=== PATIENT | female | born 1970 | race Caucasian/White ===

== ENCOUNTER 2018-11-30 03:27 | Emergency (ER) | payer MEDICARE, OTHER ==
[2018-11-30] MEDS ORDERED: NS 0.9% 1000 ML** 1,000 ML IV ONE ×2 (04:16→05:17)
[2018-11-30] MEDS ORDERED: hydrALAZINE IV* 20 MG/ML VIAL IV SLOW PU ONE (04:26)
--- NOTE | 2018-11-30 04:27 | ED ---
GI/ HPI - HPI Summary HPI Summary: Pt is a 48 y/o F presenting to the ED with a chief complaint of abnormal menstrual bleeding. She woke up around 0200, thought she was urinating, and discovered vaginal bleeding. She goes through about 1 sanitary pad an hour. This has gone on and off since she was 13 years old, took progesterone which helped, but now has the mirena IUD which she has had for approx. 1.5-2 years. Pt reports more pain on L side than R, and has a hx of a US that showed cyst on ovary. Pt denies recent DNC and says she has not been able to get hysterectomy due to diabetes. 2 previous pregnancies, both caesarian sections. - History of Current Complaint Chief Complaint: EDVaginalBleeding Time Seen by Provider: 11/30/18 03:39 Stated Complaint: VAGINAL BLEEDING Hx Obtained From: Patient Onset/Duration: Started Hours Ago, Still Present Timing: Constant, Lasting Hours Severity: Severe Current Severity: Severe Vaginal Bleeding Description: Dark Red Number of Pads per Hour: 1 Pain Intensity: 5 Location of Pain: Suprapubic Pain Characteristics: Cramping Associated Signs and Symptoms: Negative: Lightheadedness Additional Signs & Symptoms: Positive: Vaginal Bleeding, IUD - mirena Aggravating Factor(s): Nothing Alleviating Factor(s): Nothing - Allergy/Home Medications Allergies/Adverse Reactions: Allergies Allergy/AdvReac Type Severity Reaction Status Date / Time hydrocodone Allergy Hives Verified 11/30/18 03:52 linagliptin [From Tradjenta] Allergy Rash Verified 11/30/18 03:52 rubella virus live vaccine Allergy Hives/Diff. Verified 11/30/18 03:52 Breathing/I tching Home Medications: Home Medications Divalproex Sodium [Depakote] 500 mg PO QPM 11/30/18 [History Confirmed 11/30/18] Insulin Glargine,Hum.rec.anlog [Basaglar Kwikpen U-100] 20 units SUBCUT QAM 06/10 [History Confirmed 11/30/18] Insulin Glargine,Hum.rec.anlog [Basaglar Kwikpen U-100] 60 units SUBCUT BEDTIME 11/30/18 [History Confirmed 11/30/18] Insulin Lispro [Admelog Solostar] 35 units SUBCUT TID 11/30/18 [History Confirmed 11/30/18] PMH/Surg Hx/FS Hx/Imm Hx Previously Healthy: No Endocrine/Hematology History: Reports: Hx Diabetes, Hx Thyroid Disease - underactive thyroid, Hx Unexplained Bleeding - irregular menstral bleeding from fibroids on uterine wall Cardiovascular History: Reports: Hx Angina, Hx Hypercholesterolemia, Hx Hypertension, Hx Syncope Respiratory History: Reports: Hx Asthma - USUALLY R/T TO [facility], Hx Chronic Bronchitis, Hx Pneumonia, Hx Seasonal Allergies, Hx Sleep Apnea - believe so GI History: Reports: Hx Gall Bladder Disease - stones in duct, removed 2004, Hx Irritable Bowel Musculoskeletal History: Reports: Hx Arthritis, Hx Osteoporosis - fluid drained from left knee 2006 (?), Other Musculoskeletal History - left ankle ligament tear 2008 Sensory History: Reports: Hx Cataracts, Hx Contacts or Glasses - reading Opthamlomology History: Reports: Hx Cataracts, Hx Contacts or Glasses - reading Psychiatric History: Reports: Hx Anxiety, Hx Depression, Hx Inpatient Treatment , Hx Community Mental Health Tx, Hx Bipolar Disorder, Hx Suicide Attempt - once Denies: Hx Eating Disorder, Hx Panic Disorder, Hx Post Traumatic Stress Disorder, Hx Schizophrenia, Hx of Violent Episodes Against Others, Hx Substance Abuse - Surgical History Surgery Procedure, Year, and Place: cholecystectomy, tubes in ears, D+C x2, C- section x2 Hx Anesthesia Reactions: No Infectious Disease History: No Infectious Disease History: Denies: Traveled Outside the [place] in Last 30 Days - Family History Known Family History: Positive: Cardiac Disease - Social History Alcohol Use: Rare Substance Use Type: Reports: None Smoking Status (MU): Never Smoked Tobacco Amount Used/How Often: only tried a few times Length of Time of Smoking/Using Tobacco: sporadic Have You Smoked in the Last Year: No - PER PT. NEVER TRULY A SMOKER JUST TRIED IT NOW AND THEN Review of Systems Negative: Fever Positive: other - vaginal bleeding All Other Systems Reviewed And Are Negative: Yes Physical Exam Triage Information Reviewed: Yes Vital Signs On Initial Exam: Initial Vitals Temp Pulse Resp BP Pulse Ox 97.1 F 110 18 196/113 97 11/30/18 03:34 11/30/18 03:34 11/30/18 03:34 11/30/18 03:34 11/30/18 03:34 Vital Signs Reviewed: Yes Diagnostics - Vital Signs Vital Signs Temp Pulse Resp BP Pulse Ox 11/30/18 03:34 97.1 F 110 18 196/113 97 - Laboratory Result Diagrams: 11/30/18 04:26 11/30/18 04:26 Lab Statement: Any lab studies that have been ordered have been reviewed, and results considered in the medical decision making process. GIGU Course/Dx - Course Course Of Treatment: Pt is a 48 y/o F presenting to the ED with a chief complaint of abnormal menstrual bleeding. She woke up around 0200, thought she was urinating, and discovered vaginal bleeding. She goes through about 1 sanitary pad an hour. This has gone on and off since she was 13 years old, took progesterone which helped, but now has the mirena IUD which she has had for approx. 1.5-[address] Rae about the pt's condition at around 0505. He recommended giving progesterone and keeping the pt until ultrasound is available. If ultrasound is negative for malignancy or unremarkable, she can be discharged with a prescription for progesterone and instructions to call her ob/ medical appliance maker. Pt will be signed out to Dr. Osorio pending pelvic/transvaginal ultrasound. - Diagnoses Provider Diagnoses: Abnormal perimenopausal bleeding, Hyperglycemia Discharge - Sign-Out/Discharge Documenting (check all that apply): Sign-Out Patient Signing out patient TO: Saravanan Osorio - Discharge Plan Condition: Stable Prescriptions: medroxyPROGESTERone TAB* [Provera TAB*] 5 mg PO SEE INSTRUCTIONS #60 tab Referrals: Sheba Rae MD [Medical Doctor] - - Attestation Statements Document Initiated by Scribe: Yes Documenting Scribe: Lisa Perez Provider For Whom Scrapplee is Documenting (Include Credential): Ange Jacobson MD. Scribe Attestation: Lisa Hernandez, scribed for Ange Jacobson MD. on 11/30/18 at 0648. Status of Scribe Document: Ready Consult Consult: 0505 - Spoke with Dr. Rae about the pt's condition. He recommended giving progesterone and keeping the pt until ultrasound is available. If ultrasound is negative for malignancy or unremarkable, she can be discharged with a prescription for progesterone and instructions to call her fixed wing aircraft flight engineer.
[2018-11-30 04:37] LABS: ABS Basophils 0.1 10^3/ul (0-0.2); ABS Eosinophils 0.3 10^3/ul (0-0.6); ABS Lymphocytes 4.6 10^3/ul (1.0-4.8); ABS Monocytes 0.6 10^3/ul (0-0.8); ABS Neutrophils 6.6 10^3/ul (1.5-7.7); ABS Nucleated RBC 0 10^3/ul; Eosinophil % 2.6 %; Hematocrit 36 % (35-47); Hemoglobin 12.2 g/dl (12.0-16.0); Lymphocyte % 37.7 %; Mean Corpuscular HGB Conc 35 g/dl (31-36); Mean Corpuscular Hemoglobin 31 pg (27-31); Mean Corpuscular Volume 90 fL (80-97); Mean Platelet Volume 7.7 fL (7.4-10.4); Nucleated Red Blood Cells % 0.1; Platelet Count 438 10^3/ul (150-450); Red Blood Count 3.96 10^6/ul (4.00-5.40); Red Cell Distribution Width 14 % (10.5-15); White Blood Count 12.3 10^3/ul (3.5-10.8)
[2018-11-30 04:53] LABS: Albumin 3.7 g/dL (3.2-5.2); BUN/Creatinine Ratio 23.5 (8-20); Calcium 9.5 mg/dL (8.6-10.3); EGFR Non-African American 57.8 (>60); Globulin 3.7 g/dL (2-4); Potassium 3.8 mmol/L (3.5-5.0); Total Bilirubin 0.4 mg/dL (0.2-1.0); Total Protein 7.4 g/dL (6.4-8.9)
[2018-11-30 04:55] LABS: Activated Partial Thrombo Time 30.1 seconds (26.0-36.3); INR 0.86 (0.77-1.02)
[2018-11-30 04:59] LABS: HCG Pregnancy 2.24 mIU/mL
[2018-11-30] MEDS ORDERED: MEDROXYPROGESTERONE 5 MG PO ONE (05:16)
[2018-11-30] MEDS ORDERED: Insulin REGULAR(*) 1 UNITS UNIT IV PUSH ONE (05:17)
--- NOTE | 2018-11-30 07:10 | ED ---
Progress - Progress Note Progress Note: This patient was signed out from Dr. Jacobson to Dr. Osorio upon shift change at 07 :00 11/30/18 pending ultrasound. Pelvic/transvaginal ultrasound impression: Enlarged heterogeneous echogenicity uterus and thickened endometrium with fluid and potential polyp. Correlate with clinical assessment and consider endometrial tissue sampling to assess for polyp, hyperplasia, and carcinoma. ED physician has reviewed this imaging report. Upon re-eval the patient reports that her bleeding has stopped. Case discussed with Dr. Simon who will inform Dr. Rae. The patient will be discharged with a follow up with Dr. Rae. The patient is agreeable with this plan. Re-Evaluation - Re-Evaluation First Eval Re-Evaluation Time: 08:49 Change: Improved Comment: patient reports that bleeding has stopped Second Eval Re-Evaluation Time: 10:12 Change: Improved Comment: patient is feeling better and ready for discharge. Course/Dx - Course Course Of Treatment: This patient was signed out from Dr. Jacobson to Dr. Osorio upon shift change at 07:00 11/30/18 pending ultrasound. Pelvic/transvaginal ultrasound impression: Enlarged heterogeneous echogenicity uterus and thickened endometrium with fluid and. potential polyp. Correlate with clinical assessment and consider endometrial tissue. sampling to assess for polyp, hyperplasia, and carcinoma. ED physician has reviewed this imaging report. Upon re-eval the patient reports that her bleeding has stopped. Case discussed with Dr. Simon who will inform Dr. Rea. The patient will be discharged with a follow up with Dr. Rae. The patient is agreeable with this plan. - Diagnoses Provider Diagnoses: Uterine polyp - Provider Notifications Discussed Care Of Patient With: Leonor Simon Time Discussed With Above Provider: 09:49 Instructed by Provider To: Other - will inform Dr. Rae of results. Discharge - Sign-Out/Discharge Documenting (check all that apply): Patient Departure - DC Patient Received Moderate/Deep Sedation with Procedure: No - Discharge Plan Condition: Stable Disposition: HOME Prescriptions: medroxyPROGESTERone TAB* [Provera TAB*] 5 mg PO SEE INSTRUCTIONS #60 tab Referrals: Sheba Rae MD [Medical Doctor] - (2-3 days) Additional Instructions: Follow up with Dr. Rae. Return to the ED if you experience any new or worsening symptoms. - Billing Disposition and Condition Condition: STABLE Disposition: Home - Attestation Statements Document Initiated by Scribe: Yes Documenting Scribe: John Simons Provider For Whom Scribe is Documenting (Include Credential): Saravanan Osorio MD Scribe Attestation: I, John Simons, scribed for Saravanan Osorio MD on 11/30/18 at 1128. Scribe Documentation Reviewed: Yes Provider Attestation: The documentation as recorded by the John corea accurately reflects the service I personally performed and the decisions made by me, Saravanan Osorio MD Status of Scribe Document: Viewed
[2018-11-30 10:34] VITALS: BP 135/97
== END 2018-11-30 10:32 | disposition home or self-care (01) ==
LOC: ED 03:27
DX: N84.0 Polyp of corpus uteri (principal); N93.9 Abnormal uterine and vaginal bleeding, unspecified; Z97.5 Presence of (intrauterine) contraceptive device; E11.65 Type 2 diabetes mellitus with hyperglycemia; I10 Essential (primary) hypertension; Z87.42 Personal history of other diseases of the female genital tract
CPT/HCPCS: 36415; 76830; 76856; 80053; 83605; 84702; 85025; 85610; 85730; 86850; 86900; 86901; 96374; 96375; 99283; A9270-GY; J0360

== ENCOUNTER 2018-12-30 07:20 | Inpatient (IN) | payer MEDICARE ==
--- OUTSIDE RECORDS SUMMARY | 2018-12-30 07:25 | XMS REPORT | Continuity of Care Document ---
:1970 External Reference #:[id number] Author Name Sheba Rae MD Address [address] [place] [address] Care Team Providers Name Role Phone Maxx Tripathi Primary Care Physician Unavailable Payers Date Identification Numbers Payment Provider Subscriber Policy Number: [id number] [place] Ree Ryan PayID: [id number] [address] [address] [place] [address] Policy Number: [id number] [facility] Ree Ryan PayID: [id number] [address] [place] [address] Policy Number: [id number] Medicaid [place] Ree Ryan PayID: [id number] [address] [place] [address] Advance Directives Description No Information Available Problems Description No Information Family History Date Family Member(s) Observation Comments Father Diabetes Father due to VA () Mother Diabetes First Daughter A&W Second Daughter A&W First Brother A&W Second Brother A&W First Sister A&W Second Sister A&W Paternal Grandfather due to fire () Maternal Grandmother Breast Cancer Maternal Grandmother due to Alzheimer's Disease () Social History Type Date Description Comments Sex Unknown Education Highest Level Completed Is High School Diploma Marital Status Lives With Boyfriend Lives With Older brother Lives With Daughter Tobacco Use Start: Unknown Never Smoked Cigarettes ETOH Use Denies alcohol use Recreational Drug Use Denies Drug Use Tobacco Use Start: Unknown Patient has never smoked Smoking Status Reviewed: 12/05/18 Patient has never smoked Seat Belt/Car Seat Always uses seat belt Currently Active Patient is currently sexually active Condom Use Always Contraceptive Methods Current methods include levonorgestrel IUD STD's 1996 Herpes STD's Gonorrhea Allergies, Adverse Reactions, Alerts Date Description Reaction Status Severity Comments 08/07/2015 Hydrocodone Active 08/07/2015 Rubella Vaccine Active 08/07/2015 Cephalexin Active 11/29/2016 Tradjenta Active Medications Medication Date Status Form Strength Qnty SIG Indications Ordering Provider Norethindrone 11/30 Active Tablets 5mg 60tab take 1 Phaelon Acetate s tab PO MD Kyra tid until bleeding stops, then 1 tab PO bid for 5 days, then 1 tab PO daily Mirena (52 MG) 07/04 Active IUD 20mcg/24H Pha Justin Rae MD Proair HFA Active 2 puffs qd Aspir-81 Active 1 po qd Multi Vitamin Daily Active 1 po qd Atorvastatin Calcium Active 80mg 1 po qd Losartan Potassium Active 100mg 1 po qd Levothyroxine Sodium Active 25mcg 1 po qd Basaglar Kwikpen Active Solution 100Unit/M 30uni 20 am, Unknown Pen-Injec L ts 60pm t Admelog Active Solution 100Unit/M 35u plus L sliding scale Divalproex Sodium Active Tablets 500mg 1 po bid Tranexamic Acid 03/28 Hx Tablets 650mg 30tab take two s tabs by MD Kyra - mouth 11/27 times a day when menses starts, maximum of 5 days per month Medroxyprogesterone 11/05 Hx Tablets 10mg 60tab take 1 Anju Acetate s tab by Connor - mouth CNM 08/03 Depakote Hx 500mg Unknown / - 10/25 Humalog Hx Unknown / - 08/07 Lexapro Hx 10mg Unknown / - 11/27 Triamcinolone Hx Unknown Acetonide / - 10/26 Terazol 3 / Hx Unknown / - 10/26 Glipizide Hx Tablets 5mg 1 po qd Unknown / - 03/27 Metformin HCL ER 00 Hx Tablets 1000mg 30tab 2 po qd Unknown (Osm) /0000 ER 24HR s - 03/27 Tradjenta 00 Hx Tablets 5mg 1 po qd Unknown /0000 - 11/23 Medications Administered in Office Medication Date Status Form Strength Qnty SIG Indications Ordering Provider PT SCRN Tbco Administered Injection Phaelon Id as Non User 019 MD Kyra PT SCRN Tbco Administered Injection Phaelon Id as Non User 018 MD Kyra Immunizations Description No Information Available Vital Signs Date Vital Result Comment 12/05/2018 10:19am BP Systolic 132 mmHg BP Diastolic 80 mmHg Body Temperature 99.5 F Heart Rate 112 /min Respiratory Rate 12 /min Height 62 inches 5'2" Weight 245.00 lb BMI (Body Mass Index) 44.8 kg/m2 Last Menstrual Period 4678782 2 Parity 2 03/28/2018 1:53pm BP Systolic 158 mmHg BP Diastolic 104 mmHg Height 62 inches 5'2" Weight 225.00 lb BMI (Body Mass Index) 41.1 kg/m2 Last Menstrual Period 9741252 2 Parity 2 08/03/2017 12:45pm BP Systolic 142 mmHg BP Diastolic 100 mmHg Height 62 inches 5'2" Weight 233.00 lb BMI (Body Mass Index) 42.6 kg/m2 2 Parity 2 07/04/2017 3:27pm BP Systolic 148 mmHg BP Diastolic 88 mmHg Height 62 inches 5'2" Weight 233.00 lb BMI (Body Mass Index) 42.6 kg/m2 2 Parity 2 03/23/2017 10:24am BP Systolic 152 mmHg BP Diastolic 92 mmHg Height 62 inches 5'2" Weight 238.00 lb BMI (Body Mass Index) 43.5 kg/m2 2 Parity 2 11/29/2016 10:16am BP Systolic 142 mmHg BP Diastolic 82 mmHg Height 62 inches 5'2" Weight 242.00 lb BMI (Body Mass Index) 44.3 kg/m2 2 Parity 2 03/08/2016 1:20pm BP Systolic 140 mmHg BP Diastolic 82 mmHg Height 60 inches 5'0" Weight 250.00 lb BMI (Body Mass Index) 48.8 kg/m2 2 Parity 2 10/28/2015 10:52am BP Systolic 138 mmHg BP Diastolic 84 mmHg Height 65 inches 5'5" Weight 245.00 lb BMI (Body Mass Index) 40.8 kg/m2 2 Parity 2 08/07/2015 10:29am BP Systolic 138 mmHg BP Diastolic 88 mmHg Height 65 inches 5'5" Weight 245.00 lb BMI (Body Mass Index) 40.8 kg/m2 Last Menstrual Period [id number] 2 Parity 2 Results Test Date Facility Test Result H/L Range Note Laboratory test 03/23/2017 [facility] SEE RESULT [address] [place] [address] Pathology BELOW [phone] Laboratory test 11/29/2016 [facility] SEE RESULT [address] [place] [address] Pathology BELOW [phone] Laboratory test 03/08/2016 [facility] SEE RESULT [address] [place] [address] Pathology BELOW [phone] Laboratory test 10/28/2015 [facility] SEE RESULT [address] [place] [address] Pathology BELOW [phone] 1 SEE RESULT BELOW Name: REE RYAN : [address]: Sheba Rae MD Acct: [id number] Unit: [id number] AGE: 46 Location: [facility] Re03/23/17 SEX: F Status: REG REF SPEC: [id number] IONA: 03/23/17-[address]: Sheba Rae MD REQ: [id number] RECD: 03/23/17 STATUS: SOUT _ ORDERED: LEVEL 4 COMMENTS: [id number] FINAL DIAGNOSIS Uterus, endometrium, biopsy: -- Inflamed endocervical mucus and benign endocervical mucosa with no significant pathologic abnormalities. -- Scant fragments of inflamed weakly proliferative endometrial mucosa with no evidence of hyperplasia or malignancy. PRE-OPERATIVE DIAGNOSIS Benign hyperplasia GROSS DESCRIPTION The specimen is received in formalin labeled, EM BX, and consists of a 3.1 x 1.7 by up to 0.7 cm aggregate of polypoid to lobulated yellow-white mucoid to rubbery tissue fragments. The polypoid structure is bisected and the specimen is entirely submitted in cassettes A and B. Received separately in the same container is a 2.5 x 1.8 x 0.5 cm aggregate of red-brown rubbery blood clot which is filtered and entirely submitted in cassettes C. Signed (signature on file) Shante Buckley MD 12/09 1604 END OF REPORT * ML=Testing performed at Main Lab DEPARTMENT OF PATHOLOGY, [address] [place] [address] Luis Bah M.D. Director [facility] # [id number] 2 SEE RESULT BELOW Name: REE RYAN : [address]: Sheba Rae MD Acct: [id number] Unit: [id number] AGE: 46 Location: [facility] Re11/29/16 SEX: F Status: REG REF SPEC: [id number] IONA: 11/29/16-[address]: Sheba Rae MD REQ: [id number] RECD: 11/29/16-160 STATUS: SOUT _ ORDERED: LEVEL IV COMMENTS: [id number] FINAL DIAGNOSIS Uterus, endometrium, curettage: -- Inflamed endocervical and scant superficial lower uterine segment epithelium with acute inflammation and focal syncytial metaplasia. -- Abundant inflamed mucin noted. --No hyperplasia or neoplasia identified. See comment. Comment: Biopsy demonstrates only a few fragments of endocervical mucosa and superficial lower uterine segment epithelium. There is focal syncytial metaplasia noted, a finding associated with bleeding. While no evidence of hyperplasia or neoplasia identified, specimen consists predominantly of inflamed mucin and may not be personal service representative of the targeted endometrial tissue. Clinical correlation and appropriate follow-up is recommended. CLINICAL HISTORY History of hyperplasia GROSS DESCRIPTION The specimen is received in formalin labeled, EM BX, and consists of a 2.3 x 2.2 x 0.7 cm aggregate of huwmzl-fabvn-wvaz blood tinged mucus, which is filtered and entirely submitted in two cassettes. Signed (signature on file) Luis Bah MD 1342 END OF REPORT * ML=Testing performed at Main Lab DEPARTMENT OF PATHOLOGY, [address] [place] [address] Luis Bah M.D. Director [facility] # [id number] 3 SEE RESULT BELOW Name: REE RYAN : [address]: Sheba Rae MD Acct: [id number] Unit: [id number] AGE: 45 Location: [facility] Re03/08/16 SEX: F Status: REG REF SPEC: [id number] IONA: 03/08/16-[address] [facility] [address]: Sheba Rae MD REQ: [id number] RECD: 03/09/16-1044 STATUS: SOUT _ ORDERED: LEVEL IV COMMENTS: [id number] FINAL DIAGNOSIS Uterus, endometrium, biopsy: -- Extensive complex hyperplasia without atypia. COMMENT: Dr. Bah reviewed this case in intradepartmental consultation and agrees with the diagnosis. PRE-OPERATIVE DIAGNOSIS Hyperplasia without atypia. GROSS DESCRIPTION The specimen is received in formalin labeled, EM BX, and consists of a 2.7 x 1.6 x 0.8 cm paul irregular gelatinous tissue fragment. Received separately in the same container is a 2.3 x 2.1 x 0.4 cm aggregate of red-brown blood clot and mucus. The gelatinous fragment is bisected and the specimen is submitted entirely in cassettes A and B to include separately received tissue in cassette B. Signed (signature on file) Shante Buckley MD 1553 END OF REPORT * ML=Testing performed at Main Lab DEPARTMENT OF PATHOLOGY, [address] [place] [address] Luis Bah M.D. Director [facility] # [id number] 4 SEE RESULT BELOW Name: REE RYAN : [address]: Sheba Rae MD Acct: [id number] Unit: [id number] AGE: 45 Location: [facility] Re10/28/15 SEX: F Status: REG REF SPEC: [id number] IONA: 10/28/15-[address]: Sheba Rae MD REQ: [id number] RECD: 10/28/15 STATUS: SOUT _ ORDERED: LEVEL IV FINAL DIAGNOSIS Uterus, endometrium, biopsy: -- Complex hyperplasia without atypia. PRE-OPERATIVE DIAGNOSIS Dysfunctional uterine bleeding GROSS DESCRIPTION The specimen is received in formalin with no source identified and a requisition labeled, Endometrial Biopsy, and consists of a 4.5 x 3.0 by 0.7 cm aggregate of red- brown blood clot admixed with paul-bran irregular soft tissue fragments and scant mucus. Entirely submitted, three cassettes. Signed (signature on file) Shante Buckley MD 06/07 1307 END OF REPORT * ML=Testing performed at Main Lab DEPARTMENT OF PATHOLOGY, [address] [place] [address] Luis Bah M.D. Director [facility] # [id number] Procedures Date Code Description Status 07/04/2017 64134 Insert Intrauterine Device Completed 03/23/2017 79447 Biopsy Endometrial W/O Cervical Dilation Completed 11/29/2016 91890 Biopsy Endometrial W/O Cervical Dilation Completed 10/23/2016 10237847 Mammogram Completed 08/15/2016 90920 Medical Records, Release Completed 03/08/2016 51143 Biopsy Endometrial W/O Cervical Dilation Completed 10/28/2015 39344 Biopsy Endometrial W/O Cervical Dilation Completed Encounters Type Date Location Provider Dx Diagnosis Office Visit 12/05/[address] [facility] Sheba Rae MD Z01.818 Encounter for other 10:30a preprocedural examination N92.0 Excessive and frequent menstruation with regular cycle E11.21 Type 2 diabetes mellitus with diabetic nephropathy Z68.41 Body mass index (BMI) 40.0-44.9, adult Office Visit 03/28/2018 2:00p [facility] Office Sheba Rae, N92.0 Excessive and MD frequent menstruation with regular cycle Z30.431 Encounter for routine checking of intrauterine contracep dev Office Visit 08/03/2017 1:00p [facility] Office Sheba Rae Z30.431 Encounter for MD routine checking of intrauterine contracep dev N85.01 Benign endometrial hyperplasia Office Visit 08/07/2015 10:30a [facility] Office Sheba Rae, N92.0 Excessive and MD frequent menstruation with regular cycle Z68.41 Body mass index (BMI) 40.0-44.9, adult E11.9 Type 2 diabetes mellitus without complications Plan of Treatment Future Appointment(s):01/07/2019 1:00 pm - Sheba Rae MD at [facility] 8:45 am - Sheba Rae MD at [facility]
--- NOTE | 2018-12-30 07:36 | ED ---
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 She went to use the bathroom and remembers waking up in the bathroom with EMS surrounding her. Pt has been having ongoing, heavy vaginal bleeding for past several weeks. She was scheduled for D&C on 12/[address] Rae, [facility], however it was not done due to her elevated blood sugars Her POC glucose by EMS was 500. She did not test her sugars last night nor take her medication. She says her sugars are normally 250-350. PMHx: hyperplasia, DMII. She has an IUD in place which was helping control her bleeding up until about 4-5 months ago. Associated sx: lower abd cramping. - History of Current Complaint Stated Complaint: POSS HIGH SUGAR PER PT. BOYFRIEND Hx Obtained From: Patient, EMS Onset/Duration: Still Present - vaginal bleeding Timing: Constant - vaginal bleeding, Lasting Weeks - vaginal bleeding Current Severity: Severe Pain Intensity: 7 - 10 Location of Pain: Other - lower abd Pain Characteristics: Cramping Associated Signs and Symptoms: Positive: Syncope Additional Signs & Symptoms: Positive: Vaginal Bleeding - Allergy/Home Medications Allergies/Adverse Reactions: Allergies Allergy/AdvReac Type Severity Reaction Status Date / Time hydrocodone Allergy Hives Verified 12/06/18 12:56 linagliptin [From Tradjenta] Allergy Rash Verified 12/06/18 12:56 rubella virus live vaccine Allergy Hives/Diff. Verified 12/06/18 12:56 Breathing/I tching Home Medications: Home Medications Cyclobenzaprine TAB* [Flexeril 10 MG TAB*] 10 mg PO TID PRN 12/30/18 [History Confirmed 12/30/18] Divalproex Sodium [Divalproex Sodium ER] 500 mg PO BEDTIME 12/30/18 [History Confirmed 12/30/18] Losartan/Hydrochlorothiazide [Losartan-Hctz 100-25 mg Tab] 1 tab PO DAILY [History Confirmed 12/30/18] PMH/Surg Hx/FS Hx/Imm Hx Previously Healthy: No Endocrine/Hematology History: Reports: Hx Diabetes, Hx Thyroid Disease - underactive thyroid, Hx Unexplained Bleeding - irregular menstral bleeding from fibroids on uterine wall Cardiovascular History: Reports: Hx Angina, Hx Hypercholesterolemia, Hx Hypertension, Hx Syncope Respiratory History: Reports: Hx Asthma - USUALLY R/T TO [facility], Hx Chronic Bronchitis, Hx Pneumonia, Hx Seasonal Allergies, Hx Sleep Apnea - believe so GI History: Reports: Hx Gall Bladder Disease - stones in duct, removed 2004, Hx Irritable Bowel Musculoskeletal History: Reports: Hx Arthritis, Hx Osteoporosis - fluid drained from left knee 2006 (?), Other Musculoskeletal History - left ankle ligament tear 2008 Sensory History: Reports: Hx Cataracts, Hx Contacts or Glasses - reading Opthamlomology History: Reports: Hx Cataracts, Hx Contacts or Glasses - reading Psychiatric History: Reports: Hx Anxiety, Hx Depression, Hx Inpatient Treatment , Hx Community Mental Health Tx, Hx Bipolar Disorder, Hx Suicide Attempt - once Denies: Hx Eating Disorder, Hx Panic Disorder, Hx Post Traumatic Stress Disorder, Hx Schizophrenia, Hx of Violent Episodes Against Others, Hx Substance Abuse - Surgical History Surgery Procedure, Year, and Place: cholecystectomy, tubes in ears, D+C x2, C- section x2 Hx Anesthesia Reactions: No Infectious Disease History: No Infectious Disease History: Denies: Traveled Outside the [place] in Last 30 Days - Family History Known Family History: Positive: Cardiac Disease - Social History Occupation: Disabled Lives: Dormitory/Roommates - significant other Alcohol Use: Rare Hx Substance Use: No Substance Use Type: Reports: None Hx Tobacco Use: No Smoking Status (MU): Never Smoked Tobacco Amount Used/How Often: only tried a few times Length of Time of Smoking/Using Tobacco: sporadic Have You Smoked in the Last Year: No - PER PT. NEVER TRULY A SMOKER JUST TRIED IT NOW AND THEN Review of Systems Negative: Fever Positive: Abdominal Pain - cramping Positive: discharge - vaginal bleeding Positive: Syncope All Other Systems Reviewed And Are Negative: Yes Physical Exam - Summary Physical Exam Summary: VITAL SIGNS: Reviewed. GENERAL: Patient is a well-developed, obese female who is lying comfortable in the stretcher. Patient is not in any acute respiratory distress. HEAD AND FACE: Normocephalic and atraumatic. EYES: PERRLA, EOMI x 2, No injected conjunctiva. EARS: Hearing grossly intact. Ear canals and tympanic membranes are WNL. MOUTH: Oropharynx within normal limits. NECK: Supple, trachea is midline, no adenopathy, no JVD. CHEST: Symmetric, no tenderness at palpation LUNGS: Clear to auscultation bilaterally. No wheezing or crackles. CVS: RRR, S1 and S2 present, no murmurs or gallops appreciated. ABDOMEN: Soft, non-tender. No signs of distention. Positive bowel sounds. No rebound, no guarding, and no masses palpated. No abdominal bruit or pulsations. EXTREMITIES: FROM in all major joints, no edema, no cyanosis or clubbing. NEURO: Alert and oriented x 3. No acute neurological deficits. Speech is normal. 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 External genitalia: within normal limits. No rashes, lesions or ecchymosis. Speculum exam: Blood clots present, bright red blood present, the os is close. No tenderness. Triage Information Reviewed: Yes Vital Signs On Initial Exam: Initial Vitals Temp Pulse Resp BP Pulse Ox 98.3 F 125 24 134/93 97 12/30/18 07:23 12/30/18 07:23 12/30/18 07:23 12/30/18 07:23 12/30/18 07:23 Vital Signs Reviewed: Yes Diagnostics - Vital Signs Vital Signs Temp Pulse Resp BP Pulse Ox 12/30/18 07:23 98.3 F 125 24 134/93 97 - Laboratory Result Diagrams: 12/30/18 15:08 12/30/18 08:04 Lab Statement: Any lab studies that have been ordered have been reviewed, and results considered in the medical decision making process. - Radiology CXR Radiology Interpretation Completed By: Radiologist Summary of Radiographic Findings: IMPRESSION: #. No evidence for acute intrathoracic disease. ED provider has reviewed this report. - EKG 0710 Cardiac Rate: Tachycardia - 115 bpm EKG Rhythm: Sinus Tachycardia Summary of EKG Findings: No ST elevation, normal axis. GIGU Course/Dx - Course Assessment/Plan: This patient is a 48-year-old female who presents to the emergency room with chief complaint of having a syncopal episode. There was a positive loss of consciousness witnessed by . She also reports that her sugars have been more than 500 and shes been having heavy vaginal bleeding for more than 1 month. Be obtained 2 IV accesses and the patient was started with IV fluids. Blood work without any significant abnormality except for WBCs of 14.7, hemoglobin 9.7, hematocrit 28, sodium 132, chloride 96, anion gap is 13 and carbon dioxide is 23. Glucose is 451, magnesium 1.5. Patient was given IV fluids and insulin for treatment of her hyperglycemia. The patient was given magnesium IV for the hypomagnesemia. Urinalysis with positive UTI therefore she will be given ciprofloxacin. Chest x-ray impression: No evidence for acute intrathoracic disease. I discussed the findings and test results with Dr. Gong from [facility] and he recommends to place the patient on naproxen 300 mg 3 times a day. After the patient was given IV fluids and 10 units of insulin the fingerstick is 366. Therefore I order another 10 units of insulin for this patient. The patient continues to have a fingerstick of 231 after 20 units of insulin therefore she was given another 10 units of insulin. Patient continued to have fluids. Since the patient continues to be Tachycardic I discussed my physical exam and findings with Dr. Venegas from the hospital services who accepted the patient for admission. Patient is hemodynamically stable except for her tachycardia. - Diagnoses Provider Diagnoses: Syncope, Uncontrolled diabetes mellitus, Abnormal vaginal bleeding - Physician Notifications Discussed Care Of Patient With: Marco Gong - [facility] Time Discussed With Above Provider: 09:42 Instructed by Provider To: Other - Recommends to start Naproxen 300mg TID and follow up with Dr. Rae, [facility]. - Critical Care Time Critical Care Time: 30-74 min Discharge - Sign-Out/Discharge Documenting (check all that apply): Patient Departure - ADMIT Patient Received Moderate/Deep Sedation with Procedure: No - Discharge Plan Condition: Stable Disposition: ADMITTED TO [facility] - Billing Disposition and Condition Condition: STABLE Disposition: Admitted to [facility] - Attestation Statements Document Initiated by Saniya: Yes Documenting Scribe: Odilia Valencia Provider For Whom Saniya is Documenting (Include Credential): MD Inge Spenceibe Attestation: IOdilia scribed for Dr. David Quach MD on 12/30/18 at 3471. Scribe Documentation Reviewed: Yes Provider Attestation: The documentation as recorded by the Odilia corea accurately reflects the service I personally performed and the decisions made by me, Dr. David Quach MD Status of Scribe Document: Viewed Consult Consult: 1218: Consult with Dr. Venegas, hospitalist Will admit pt.
[2018-12-30] MEDS: NS 0.9% 1000 ML** 2,000 ML IV ONE (07:52)
[2018-12-30 08:18] LABS: ABS Basophils 0.1 10^3/ul (0-0.2); ABS Eosinophils 0.4 10^3/ul (0-0.6); ABS Lymphocytes 3.1 10^3/ul (1.0-4.8); ABS Monocytes 0.7 10^3/ul (0-0.8); ABS Neutrophils 10.4 10^3/ul (1.5-7.7); ABS Nucleated RBC 0 10^3/ul; Eosinophil % 2.8 %; Hematocrit 28 % (35-47); Hemoglobin 9.7 g/dl (12.0-16.0); Lymphocyte % 21.3 %; Mean Corpuscular HGB Conc 35 g/dl (31-36); Mean Corpuscular Hemoglobin 32 pg (27-31); Mean Corpuscular Volume 91 fL (80-97); Nucleated Red Blood Cells % 0; Platelet Count 390 10^3/ul (150-450); Red Blood Count 3.07 10^6/ul (4.00-5.40); Red Cell Distribution Width 14 % (10.5-15); White Blood Count 14.7 10^3/ul (3.5-10.8)
[2018-12-30 08:32] LABS: Albumin 3.5 g/dL (3.2-5.2); Albumin/Globulin Ratio 1.3 (1-3); BUN/Creatinine Ratio 23.7 (8-20); Calcium 8.6 mg/dL (8.6-10.3); EGFR African American 77.9 (>60); EGFR Non-African American 64.3 (>60); Globulin 2.8 g/dL (2-4); Magnesium 1.5 mg/dL (1.9-2.7); Potassium 3.9 mmol/L (3.5-5.0); Total Bilirubin 0.5 mg/dL (0.2-1.0); Total Protein 6.3 g/dL (6.4-8.9)
[2018-12-30] MEDS ORDERED: Insulin REGULAR(*) 1 UNITS UNIT IV PUSH ONE ×3 (08:36→12:11)
[2018-12-30] MEDS ORDERED: Magnesium Sulfate 1 GM IV* 1 GM/100 ML BAG IV ONE (08:37)
[2018-12-30 08:38] LABS: HCG Pregnancy 1.11 mIU/mL
[2018-12-30 08:49] LABS: Urine Appearance Cloudy; Urine Bacteria Absent (Absent); Urine Bilirubin Negative (Negative); Urine Blood 3+ (Negative); Urine Glucose 3+(>=500 mg/dL) (Negative); Urine Ketones Trace (Negative); Urine Nitrite Negative (Negative); Urine Protein 2+(100 mg/dL) (Negative); Urine Red Blood Cell 3+(>10/hpf) (Absent); Urine Specific Gravity 1.027 (1.010-1.030); Urine Urobilinogen Negative (Negative); Urine White Blood Cell 3+(>20/hpf) (Absent)
[2018-12-30 08:51] LABS: Urine Color Red
[2018-12-30] MEDS ORDERED: Dextrose 50% Syringe 50 ML* 25 GM/50 ML SYRINGE IV PUSH PRN (12:29)
[2018-12-30] MEDS ORDERED: Cyclobenzaprine TAB* 10 MG PO PRN (12:30)
[2018-12-30] MEDS: Insulin GLARGINE(*) 1 UNITS UNIT SUBCUT SCH (13:34)
--- NOTE | 2018-12-30 14:19 | ADMNOTE ---
Subjective Date of Service: 12/30/18 Interval History: HISTORY & PHYSICAL PCP: Fazal Russo in [place] CC: syncope HPI: 48 year old woman with long history of intractable vaginal bleeding has been going to the bathroom every hour for days, passing clots. She was in bathroom this morning, bent over to get more paper, had LOC, woke up when holistic health practitioner were in her house. Her reports he heard a fall, found her unresponsive, no response to stimuli for 10-12 minutes. No injury, no seizure activity noted. Patient has had difficulty with excess vaginal bleeding since menarche, had improved a few months ago with placement of Mirina IUD and oral progesterone. 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 Sees Dr. Moy, endocrinology at [facility] [place]. Cannot take DPP inhibitors or GLP analogues due to history of pancreatitis when on an linagliptin. Cannot take Metformin due to diarrhea, which occurred on Metformin ER also. Family History: Findings - Father CAD age 65, Mother and sister have diabetes, Mother and 2 sisters have excess vaginal bleeding, one sister had hysterectomy due to fibroids Social History: Findings - , 2 children, disabled, non-smoker, rare alcohol, no drug use Past Medical History: Findings - PMH: morbid obesity, HTN, hyperlipidemia, Type 2 diabetes, bipolar d/o; PSH: X2, D&C X3, cholecystectomy Review of Systems - Measurements Intake and Output: Intake and Output Last 24 Hours 12/28/18 12/29/18 12/30/18 12/31/18 05:59 05:59 06:59 06:59 Intake Total 2100 Balance 2100 Weight 111.584 kg Intake: IV Fluids 2100 - Review of Systems Constitutional Symptoms: Negative: Weight Loss, Fever Dermatology: Positive: Normal HEENT: Positive: Normal Eyes: Positive: Normal Thyroid: Positive: Normal Pulmonary: Positive: Normal Cardiology: Positive: Normal Gastroenterology: Positive: Nausea, Other - dry heaves, lower abdominal ( menstrual) cramps Negative: Constipation, Diarrhea Genital - Urinary: Positive: Normal Genitourinay - Female: Positive: Dysmenorrhea. Negative: Menses Normal Endocrinology: Positive: Diabetes Mellitus, Menstral Abnormalities Hematologic/Lymphatic: Positive: Anemia Negative: Use of Anticoagulant, Use of Antiplatelet Drugs Neurology: Positive: Normal Psychiatry: Positive: Normal Objective Active Medications: HOME MEDS: Aspirin (Aspirin 81 Mg Chew Tab*) 81 mg PO QAM [facility] Atorvastatin Calcium (Lipitor*) 80 mg PO 2100 [facility] Cyclobenzaprine HCl (Flexeril Tab*) 10 mg PO TID PRN PRN Reason: SPASMS Divalproex Sodium (Depakote Er Tab(*)) 250 mg PO QAM [facility] Divalproex Sodium (Depakote Er Tab(*)) 500 mg PO BEDTIME [facility] Glipizide (Glucotrol Tab*) 10 mg PO BID [facility] Hydrochlorothiazide (Hydrodiuril Tab*) 25 mg PO DAILY [facility] Insulin Glargine (BasaGlar) 20 units SUBCUT in AM, 60 units SC qPM Last Admin: 12/30/18 13:34 Dose: 50 units Insulin Human Lispro (AdmiLog*) 35 units SUBCUT AC [facility] Levothyroxine Sodium (Synthroid Tab*) 25 mcg PO 0600 [facility] Losartan Potassium (Cozaar Tab*) 100 mg PO DAILY [facility] Medroxyprogesterone Acetate (Provera Tab*) 5 mg PO TID [facility] Vital Signs - 8 hr 12/30/18 12/30/18 12/30/18 09:00 09:24 09:54 Temperature Pulse Rate 113 111 Respiratory 18 28 16 Rate Blood Pressure 147/79 113/71 (mmHg) O2 Sat by Pulse 98 96 Oximetry 12/30/18 12/30/18 12/30/18 10:00 10:24 11:00 Temperature Pulse Rate 108 107 112 Respiratory 17 16 23 Rate Blood Pressure 122/66 (mmHg) O2 Sat by Pulse 96 96 98 Oximetry Oxygen Devices in Use Now: None Appearance: obese, no distress Eyes: No Scleral Icterus Ears/Nose/Mouth/Throat: Clear Oropharnyx Neck: NL Appearance and Movements; NL JVP, No Thyroid Enlargement, Masses Respiratory: Symmetrical Chest Expansion and Respiratory Effort, Clear to Auscultation Cardiovascular: NL Sounds; No Murmurs; No JVD, RRR Abdominal: NL Sounds; No Tenderness; No Distention, No Hepatosplenomegaly Lymphatic: No Cervical Adenopathy Extremities: No Edema Skin: No Rash or Ulcers Neurological: Alert and Oriented x 3 Lines/Tubes/Other Access: Clean, Dry and Intact Peripheral IV Nutrition: Taking PO's Result Diagrams: 12/30/18 08:04 12/30/18 08:04 Additional Lab and Data: Laboratory Tests 12/30/18 12/30/18 12/30/18 08:04 09:04 09:30 VBG pH 7.34 VBG pCO2 46 VBG pO2 < 38.0 VBG HCO3 22.4 L POC Glucose (mg/dL) 366 H Magnesium 1.5 L AST 10 L ALT 11 Troponin I 0.00 Beta HCG, Quant 1.11 12/30/18 12:09 VBG pH VBG pCO2 VBG pO2 VBG HCO3 POC Glucose (mg/dL) 321 H Magnesium AST ALT Troponin I Beta HCG, Quant Diagnostic Imaging: CXR: no infiltrates EKG Data: Sinus tachycardia, low voltage, small Qs in III, aVF Assess/Plan/Problems-Billing Assessment: 48 yo woman with chronic menorrhagia, anemia, uncontrolled DM2, here with syncope. - Patient Problems (1) Syncope Current Visit: No Status: Acute Priority: High Onset Date: 02/14/15 Code (s): R55 - SYNCOPE AND COLLAPSE SNOMED Code(s): 165355361 Comment: -Differential would include vaso-vagal episode, hypovolemia and hypotension, seizure, or arrhythmia. -Will observe on telemetry, follow serial troponins -Suspect hypovolemia and orthostasis due to acute blood loss (2) Type 2 diabetes mellitus, uncontrolled Current Visit: Yes Status: Acute Priority: Medium Code(s): E11.65 - TYPE 2 DIABETES MELLITUS WITH HYPERGLYCEMIA SNOMED Code(s): 650948512 Comment: -Increased Lantus from 80 to 100u per day -Continue mealtime boluses, with sliding scale added -Continue Glyburide, should add SGLT-2 inhibitor as outpatient, as both insulin and glyburide are promoting weight gain -once diabetes better controlled, should go to OR for D&C (3) Perimenopausal menorrhagia Current Visit: Yes Status: Acute Priority: High Code(s): N92.4 - EXCESSIVE BLEEDING IN THE PREMENOPAUSAL PERIOD SNOMED Code(s): 003725261 Comment: -Will admit, observe serial H/H -Will consult with HIGH SCHOOL MUSIC INSTRUCTOR tomorrow if diabetes under better control. -Hypovolemic, will give IV crystalloids. (4) DVT prophylaxis Current Visit: No Status: Acute Priority: Low Onset Date: 02/14/15 Code( s): NVR6758 - SNOMED Code(s): 526432371 Comment: -moderate risk due to obesity -SCDs ordered (5) Hypomagnesemia Current Visit: Yes Status: Acute Priority: Medium Code(s): E83.42 - HYPOMAGNESEMIA SNOMED Code(s): 843003081 Comment: -Will replete and recheck in AM Status and Disposition: Inpatient required
[2018-12-30] MEDS: NS 0.9% 1000 ML** 1,000 ML IV SCH ×2 (14:46→21:41)
[2018-12-30 15:14] LABS: Hematocrit 26 % (35-47); Hemoglobin 8.9 g/dl (12.0-16.0)
[2018-12-30] MEDS: MEDROXYPROGESTERONE 5 MG PO SCH ×2 (15:33→21:12)
[2018-12-30] MEDS: Insulin LISPRO* 1 UNITS UNIT SUBCUT SCH ×3 (17:11→21:12)
[2018-12-30] MEDS: glipiZIDE TAB* 5 MG PO SCH (21:10)
[2018-12-30] MEDS: Divalproex ER TAB(*) 500 MG PO SCH (21:11)
[2018-12-30] MEDS: Magnesium Oxide TAB* 400 MG PO SCH (21:11)
[2018-12-31] MEDS: Insulin GLARGINE(*) 1 UNITS UNIT SUBCUT SCH ×2 (01:11→13:46)
[2018-12-31] MEDS: Levothyroxine TAB* 25 MCG TAB PO SCH (05:08)
[2018-12-31 05:42] LABS: ABS Basophils 0.1 10^3/ul (0-0.2); ABS Eosinophils 0.4 10^3/ul (0-0.6); ABS Lymphocytes 3.5 10^3/ul (1.0-4.8); ABS Monocytes 0.3 10^3/ul (0-0.8); ABS Neutrophils 4.5 10^3/ul (1.5-7.7); ABS Nucleated RBC 0 10^3/ul; Eosinophil % 4.5 %; Hematocrit 21 % (35-47); Hemoglobin 7.3 g/dl (12.0-16.0); Lymphocyte % 40.1 %; Mean Corpuscular HGB Conc 35 g/dl (31-36); Mean Corpuscular Hemoglobin 32 pg (27-31); Mean Corpuscular Volume 92 fL (80-97); Mean Platelet Volume 7.3 fL (7.4-10.4); Nucleated Red Blood Cells % 0; Platelet Count 282 10^3/ul (150-450); Red Blood Count 2.28 10^6/ul (4.00-5.40); Red Cell Distribution Width 14 % (10.5-15); White Blood Count 8.8 10^3/ul (3.5-10.8)
[2018-12-31] MEDS: glipiZIDE TAB* 5 MG PO SCH ×2 (08:18→20:59)
[2018-12-31] MEDS: Aspirin 81 mg CHEW TAB* 81 MG TAB.CHEW PO SCH (08:18)
[2018-12-31] MEDS: Insulin LISPRO* 1 UNITS UNIT SUBCUT SCH ×7 (08:18→21:01)
[2018-12-31] MEDS: Magnesium Oxide TAB* 400 MG PO SCH ×2 (08:18→21:00)
[2018-12-31] MEDS: Losartan TAB* 25 MG PO SCH (08:19)
[2018-12-31] MEDS: MEDROXYPROGESTERONE 5 MG PO SCH (08:19)
[2018-12-31] MEDS: Divalproex ER TAB(*) 250 MG PO SCH (08:19)
[2018-12-31] MEDS: Hydrochlorothiazide TAB* 25 MG PO SCH (08:19)
[2018-12-31] MEDS: Canagliflozin (NF) 100 MG TAB PO SCH (08:21)
[2018-12-31] MEDS ORDERED: Magnesium Sulfate 2 GM IV* 2 GM/50 ML BAG IVPB ONE (10:15)
--- NOTE | 2018-12-31 10:28 | PN ---
Subjective Date of Service: 12/31/18 Interval History: Pt if a 48yof with heavy vaginal bleeding. She states that bleeding has decreased since yesterday, when medoxyprogesterone started. She states that she is feeling well today. Her hgb has dropped almost 2.5 in last 24 hours, but she denies symptoms of SOB, dizziness, lightheadedness. She does state that she is fatigued, stating she had a hard time sleeping in the hospital last night. She had cramping and heavy bleeding yesterday, as well as syncope prior to admission, and denies all now. Family History: Findings - Father CAD age 65, Mother and sister have diabetes, Mother and 2 sisters have excess vaginal bleeding, one sister had hysterectomy due to fibroids Social History: Findings - , 2 children, disabled, non-smoker, rare alcohol, no drug use Past Medical History: Findings - PMH: morbid obesity, HTN, hyperlipidemia, Type 2 diabetes, bipolar d/o; PSH: X2, D&C X3, cholecystectomy Objective Active Medications: Aspirin (Aspirin 81 Mg Chew Tab*) 81 mg PO QAM [facility] Atorvastatin Calcium (Lipitor*) 80 mg PO 2100 [facility] Canagliflozin (Invokana (Nf)) 200 mg PO DAILY [facility] Cyclobenzaprine HCl (Flexeril Tab*) 10 mg PO TID PRN Dextrose (D50w Syringe 50 Ml*) 12.5 gm IV PUSH .FOR FS < 60 - SS PRN Divalproex Sodium (Depakote Er Tab(*)) 250 mg PO QAM [facility] Divalproex Sodium (Depakote Er Tab(*)) 500 mg PO BEDTIME [facility] Glipizide (Glucotrol Tab*) 10 mg PO BID [facility] Hydrochlorothiazide (Hydrodiuril Tab*) 25 mg PO DAILY [facility] Sodium Chloride (Ns 0.9% 1000 Ml) 1,000 mls @ 250 mls/hr IV PER RATE [facility] Magnesium Sulfate (Magnesium Sulfate 2 Gm Iv*) 2 gm in 50 mls @ 50 mls/hr IVPB ONCE ONE Insulin Glargine (Lantus(*)) 50 units SUBCUT Q12H [facility] Insulin Human Lispro (Humalog*) 0 units SUBCUT ACHS [facility]; Protocol Insulin Human Lispro (Humalog*) 20 units SUBCUT AC [facility] Levothyroxine Sodium (Synthroid Tab*) 25 mcg PO 0600 [facility] Losartan Potassium (Cozaar Tab*) 100 mg PO DAILY [facility] Magnesium Oxide (Magox 400 Tab*) 400 mg PO BID [facility] Medroxyprogesterone Acetate (Provera Tab*) 5 mg PO TID [facility] Vital Signs: Temp Pulse Resp BP Pulse Ox 97.9 F 105 16 129/70 99 12/31/18 08:11 12/31/18 08:11 12/31/18 08:11 12/31/18 08:11 12/31/18 08:11 Oxygen Devices in Use Now: None Appearance: Pt is sitting up in bed. She appears well and comfortable. She is in no acute distress. Eyes: No Scleral Icterus, PERRLA, - - Conjunctiva without paleness. Ears/Nose/Mouth/Throat: NL Teeth, Lips, Gums, Clear Oropharnyx, - - Mucous membranes appear slightly dry Neck: NL Appearance and Movements; NL JVP, Trachea Midline, No Thyroid Enlargement, Masses Respiratory: Symmetrical Chest Expansion and Respiratory Effort, Clear to Auscultation Cardiovascular: NL Sounds; No Murmurs; No JVD, No Edema, - - Regular rate; tachycardic Abdominal: NL Sounds; No Tenderness; No Distention, No Hepatosplenomegaly Lymphatic: No Cervical Adenopathy Extremities: No Edema, No Clubbing, Cyanosis Neurological: Alert and Oriented x 3 Result Diagrams: 12/31/18 05:19 12/30/18 08:04 Additional Lab and Data: Laboratory Tests 12/30/18 12/30/18 12/30/18 08:04 09:04 09:30 VBG pH 7.34 VBG pCO2 46 VBG pO2 < 38.0 VBG HCO3 22.4 L POC Glucose (mg/dL) 366 H Magnesium 1.5 L AST 10 L ALT 11 Troponin I 0.00 Beta HCG, Quant 1.11 12/30/18 12:09 VBG pH VBG pCO2 VBG pO2 VBG HCO3 POC Glucose (mg/dL) 321 H Magnesium AST ALT Troponin I Beta HCG, Quant Diagnostic Imaging: CXR: no infiltrates EKG Data: Sinus tachycardia, low voltage, small Qs in III, aVF Assess/Plan/Problems-Billing Assessment: 48 yo woman with chronic menorrhagia, anemia, uncontrolled DM2, here with syncope. - Patient Problems (1) Menorrhagia Comment: -Consult order editor, ordered; recommended d/c medoxyprogestreone and start noerthinderone (2) Anemia Comment: -H/H continues to drop, pt denies SOB, dizziness, but c/o fatigue -Transfuse 1 U PRBC -Continue to monitor H/H (3) Tachycardia Comment: -Pt noted that she has h/o tachycardia -Denies SOB, LE pain; ? due to anemia -Continue to monitor (4) Type 2 diabetes mellitus, uncontrolled Comment: -BS in high 100's today; consider endocrinology consult (no provider today) -Lantus 50 BID -Continue mealtime boluse of 20, with sliding scale added -Continue Glipizide, Canagliflozin -Should add SGLT-2 inhibitor as outpatient, as both insulin and glyburide are promoting weight gain -Once diabetes better controlled, should go to OR for D&C (5) Hypomagnesemia Comment: -Mg at 1.6; 2g IV ordered -Recheck in a.m. (6) Hypertension Comment: -WNL -Continue losartan, HCTZ (7) DVT prophylaxis Comment: -Moderate risk due to obesity -SCDs ordered (8) Full code status Status and Disposition: Inpatient. Discharge when stable.
[2018-12-31] MEDS: NORETHINDRONE 5 MG PO SCH ×2 (13:46→21:00)
[2018-12-31] MEDS ORDERED: Norethindrone (NF) 0.35 MG TAB PO SCH (14:00)
[2018-12-31 17:41] LABS: Hematocrit 28 % (35-47); Hemoglobin 9.3 g/dl (12.0-16.0)
[2018-12-31] MEDS: Divalproex ER TAB(*) 500 MG PO SCH (21:00)
[2018-12-31] MEDS: Atorvastatin* 80 MG TAB PO SCH (21:00)
--- NOTE | 2018-12-31 21:13 | CONS ---
CONSULTATION REPORT: DATE OF CONSULT: 12/31/18 CHIEF COMPLAINT: Vaginal bleeding. HISTORY OF PRESENT ILLNESS: The patient is a 48-year-old 2, para 2, who came in as a transfe r when EMS was called as she was found unconscious at home. The blood sugar at that point was around 500 and the patient was then transported to the emergency room. The patient has had ongoing vaginal bleeding intermittently and most recently had had some heavier vaginal bleeding. The patient's hemog lobin on admission to the ER was noted to be 9.7 and 28. Blood gases were performed which revealed a pH of 7.34, pCO2 of 46, HCO3 of 20, bicarb level of 22.4, base excess of -1.3. Her point of entry g lucose was 451. The patient was admitted for glycemic control and observation of vaginal bleeding. The patient did have a drop in hemoglobin of 7.3 and has been given 2 units of packed red blood cells with a followup hemoglobin now of 9.3 and the patient reports minimal vaginal bleeding. She had been managed with Mirena IUD for her endometrial hyperplasia and most recently had been on medroxyprogest erone. The patient is followed at [facility] for her glycemic control and the plan is for the patient t o be seen on 01/07/19 with plans of insulin pump placement. PAST MEDICAL HISTORY: Noted for: 1. Type 2 diabetes with insulin management. 2. Bipolar disorder. 3. Morbid obesity. 4. Hypertension. 5. Hyperlipidemia. PAST SURGICAL HISTORY: Noted for: 1. section x2. 2. D and C x3. 4. Cholecystectomy. SOCIAL HISTORY: She is . Has 2 children. REVIEW OF SYSTEMS: Currently the patient notes decreased vaginal bleeding. GI: Normal bowel habits. No current problems with diarrhea. Endocrine: Chronically elevated blood sugars with the highest ever this morning when she was found obtunded and with syncope, noted to be approximately 500 mg/dL. PHYSICAL EXAM: Vital Signs: Temperature is 97.5, heart rate is 99, blood pressure 130/70, O2 sat 98 %. Abdomen is obese, nontender. Extremities: No evidence of swelling or edema. Pelvic Exam: Exte rnal genitalia with pad. Normal external anatomy. Minimal blood noted on pad. Uterus is not apprec iated. No masses are appreciated at the uterus. ASSESSMENT AND PLAN: The patient is a 48-year-old with episode of syncope, elevated glucoses, and an emia from vaginal bleeding requiring 2 units of blood products. The patient is to be admitted for gl ycemic control, had begun norethindrone 5 mg twice a day to help with vaginal bleeding and no longer using medroxyprogesterone which she had been prescribed. Recommending a followup in the near future with Dr. Rae with plan to doing a repeat endometrial Pipelle. The patient had been planned on havi ng a D and C; however, secondary to poor glycemic control, the case was delayed by Anesthesia with co ncerns about her type 2 diabetes mellitus and poor control. The patient does have a followup on this coming Monday for pump placement as the poor glycemic control has been escalating. I am unsure at t his point if the syncope is related to extreme hyperglycemia or anemia or a combination of the both. The patient is feeling much better with the 2 units of blood and notes minimal bleeding at present a nd would plan on discharge to home with followup outpatient with Dr. Rae and our OB-HUMAN RESOURCES EXECUTIVE will also c oordinate this followup with Dr. Rae. [id number]/[facility] #: [id number]
[2019-01-01] MEDS: Insulin GLARGINE(*) 1 UNITS UNIT SUBCUT SCH ×2 (00:55→13:20)
[2019-01-01] MEDS: Levothyroxine TAB* 25 MCG TAB PO SCH (05:25)
[2019-01-01 05:43] LABS: Hematocrit 27 % (35-47); Hemoglobin 9.3 g/dl (12.0-16.0); Mean Corpuscular HGB Conc 34 g/dl (31-36); Mean Corpuscular Hemoglobin 31 pg (27-31); Mean Corpuscular Volume 90 fL (80-97); Mean Platelet Volume 7.3 fL (7.4-10.4); Platelet Count 370 10^3/ul (150-450); Red Blood Count 3.02 10^6/ul (4.00-5.40); Red Cell Distribution Width 16 % (10.5-15); White Blood Count 12.4 10^3/ul (3.5-10.8)
[2019-01-01 06:01] LABS: BUN/Creatinine Ratio 19.2 (8-20); Calcium 8.9 mg/dL (8.6-10.3); EGFR Non-African American 85.1 (>60); Magnesium 1.9 mg/dL (1.9-2.7); Potassium 3.9 mmol/L (3.5-5.0)
[2019-01-01] MEDS: Insulin LISPRO* 1 UNITS UNIT SUBCUT SCH ×7 (09:35→20:25)
[2019-01-01] MEDS: Aspirin 81 mg CHEW TAB* 81 MG TAB.CHEW PO SCH (09:36)
[2019-01-01] MEDS: glipiZIDE TAB* 5 MG PO SCH ×2 (09:36→20:21)
[2019-01-01] MEDS: Hydrochlorothiazide TAB* 25 MG PO SCH (09:36)
[2019-01-01] MEDS: Divalproex ER TAB(*) 250 MG PO SCH (09:37)
[2019-01-01] MEDS: Magnesium Oxide TAB* 400 MG PO SCH ×2 (09:37→20:21)
[2019-01-01] MEDS: Losartan TAB* 25 MG PO SCH (09:37)
[2019-01-01] MEDS: Canagliflozin (NF) 100 MG TAB PO SCH (09:38)
[2019-01-01] MEDS: NORETHINDRONE 5 MG PO SCH ×2 (09:38→20:22)
--- NOTE | 2019-01-01 10:10 | PN ---
Subjective Date of Service: 01/01/19 Interval History: Pt states that she feels well. She states she passed a small clot yesterday and has only had a small amount of streaking since then. She has an appointment on with Dr. Rae. In regards to DM, pt has had sugars from 160-260 in last 24h. She states that home sugars ate typically b/t 250-350, and admits that she has a poor diet. She refuses diabetic education, stating she knows what she has to do, but does not follow through. Currently, pt denies CP, SOB, cough, abd pain, n/v/d, change in urination. She denies fevers. TELE: NSR, sinus tachycardia Family History: Findings - Father CAD age 65, Mother and sister have diabetes, Mother and 2 sisters have excess vaginal bleeding, one sister had hysterectomy due to fibroids Social History: Findings - , 2 children, disabled, non-smoker, rare alcohol, no drug use Past Medical History: Findings - PMH: morbid obesity, HTN, hyperlipidemia, Type 2 diabetes, bipolar d/o; PSH: X2, D&C X3, cholecystectomy Objective Active Medications: Aspirin (Aspirin 81 Mg Chew Tab*) 81 mg PO QAM WILVER Atorvastatin Calcium (Lipitor*) 80 mg PO 2100 WILVER Canagliflozin (Invokana (Nf)) 200 mg PO DAILY WILVER Cyclobenzaprine HCl (Flexeril Tab*) 10 mg PO TID PRN Dextrose (D50w Syringe 50 Ml*) 12.5 gm IV PUSH .FOR FS < 60 - SS PRN Divalproex Sodium (Depakote Er Tab(*)) 250 mg PO QAM WILVER Divalproex Sodium (Depakote Er Tab(*)) 500 mg PO BEDTIME WILVER Glipizide (Glucotrol Tab*) 10 mg PO BID WILVER Hydrochlorothiazide (Hydrodiuril Tab*) 25 mg PO DAILY WILVER Insulin Glargine (Lantus(*)) 50 units SUBCUT Q12H WILVER Insulin Human Lispro (Humalog*) 0 units SUBCUT ACHS WILVER; Protocol Insulin Human Lispro (Humalog*) 20 units SUBCUT AC WILVER Levothyroxine Sodium (Synthroid Tab*) 25 mcg PO 0600 WILVER Losartan Potassium (Cozaar Tab*) 100 mg PO DAILY WILVER Magnesium Oxide (Magox 400 Tab*) 400 mg PO BID [facility]:Norethindrone 5 (Mg) 1 dose PO BID [facility] Vital Signs: Temp Pulse Resp BP Pulse Ox 98.5 F 100 20 113/73 99 01/01/19 08:51 01/01/19 08:51 01/01/19 08:51 01/01/19 08:51 01/01/19 08:51 Oxygen Devices in Use Now: None Appearance: Pt is sitting at edge of bed. She appears well and is in no acute distress. Eyes: No Scleral Icterus, PERRLA Ears/Nose/Mouth/Throat: NL Teeth, Lips, Gums, Clear Oropharnyx, Mucous Membranes Moist Neck: NL Appearance and Movements; NL JVP, Trachea Midline Respiratory: Symmetrical Chest Expansion and Respiratory Effort, Clear to Auscultation Cardiovascular: NL Sounds; No Murmurs; No JVD, No Edema, - - Tachycardic rate, regular rhythm. Without pleuritic chest pain Abdominal: NL Sounds; No Tenderness; No Distention, No Hepatosplenomegaly, - - obese abdomen Extremities: No Edema, No Clubbing, Cyanosis, - - B/l calves without edema, palpable cords, tenderness to palpation Neurological: Alert and Oriented x 3 Result Diagrams: 01/01/19 05:32 01/01/19 05:32 Additional Lab and Data: Laboratory Tests 12/30/18 12/30/18 12/30/18 08:04 09:04 09:30 VBG pH 7.34 VBG pCO2 46 VBG pO2 < 38.0 VBG HCO3 22.4 L POC Glucose (mg/dL) 366 H Magnesium 1.5 L AST 10 L ALT 11 Troponin I 0.00 Beta HCG, Quant 1.11 12/30/18 12:09 VBG pH VBG pCO2 VBG pO2 VBG HCO3 POC Glucose (mg/dL) 321 H Magnesium AST ALT Troponin I Beta HCG, Quant Microbiology and Other Data: Microbiology 12/30/18 07:30 Urine Culture - Final Urine Strep Group B Diagnostic Imaging: CXR: no infiltrates EKG Data: Sinus tachycardia, low voltage, small Qs in III, aVF Assess/Plan/Problems-Billing Assessment: 48 yo woman with chronic menorrhagia, anemia, uncontrolled DM2, here with syncope. - Patient Problems (1) SIRS (systemic inflammatory response syndrome) Comment: -Tachycardia + leukocytosis; pt states she has h/o tachycardia, will request records -Pt denies pleuritic CP, SOB, cough, fever, abd pain, diarrhea, increase in urination -Pt received 4L IVF yesterday, ? overload -Lactic acid is 1.4 (2) Menorrhagia Comment: -Pt denies abd pain, passed small clot and streaks of blood on pad -Consulted Director Of Special Education, thank you for the suggestions -Continue noerthinderone -Continue to monitor for blood loss, H/H (3) Anemia Comment: -H/H stabilized after 1U PRBC; pt denies SOB, dizziness, but c/o fatigue -Continue to monitor H/H (4) Type 2 diabetes mellitus, uncontrolled Comment: -BS 160-260 in last 24h; pt refused Diabetic Education/Nutrition Consult -Pt has endocrinology appt on 01/07 -Lantus 50 BID -Continue mealtime boluse of 20, with sliding scale added -Continue Glipizide, Canagliflozin -Will continue SGLT-2 inhibitor as outpatient, as both insulin and glyburide are promoting weight gain (5) Hypomagnesemia Comment: -Resolved (6) Hypertension Comment: -WNL -Continue losartan, HCTZ (7) DVT prophylaxis Comment: -Moderate risk due to obesity -SCDs ordered (8) Full code status Status and Disposition: Inpatient. Discharge when stable.
[2019-01-01] MEDS ORDERED: Polyethylene Glycol 3350* 17 GM PACKET PO PRN (13:58)
[2019-01-01] MEDS: Atorvastatin* 80 MG TAB PO SCH (20:21)
[2019-01-01] MEDS: Divalproex ER TAB(*) 500 MG PO SCH (20:22)
[2019-01-01 20:33] LABS: Urine Appearance Clear; Urine Bacteria Absent (Absent); Urine Bilirubin Negative (Negative); Urine Blood 3+ (Negative); Urine Glucose 3+(>=500 mg/dL) (Negative); Urine Ketones Negative (Negative); Urine Nitrite Negative (Negative); Urine Protein 1+(30 mg/dL) (Negative); Urine Red Blood Cell 3+(>10/hpf) (Absent); Urine Specific Gravity 1.005 (1.010-1.030); Urine Squamous Epithelial Cell Present (Absent); Urine Urobilinogen Negative (Negative); Urine White Blood Cell 3+(>20/hpf) (Absent)
[2019-01-01 20:36] LABS: Urine Color Red
[2019-01-02] MEDS: Insulin GLARGINE(*) 1 UNITS UNIT SUBCUT SCH ×2 (00:54→12:53)
[2019-01-02] MEDS: Levothyroxine TAB* 25 MCG TAB PO SCH (05:06)
[2019-01-02] MEDS: Canagliflozin (NF) 100 MG TAB PO SCH (08:20)
[2019-01-02] MEDS: Hydrochlorothiazide TAB* 25 MG PO SCH (08:21)
[2019-01-02] MEDS: Divalproex ER TAB(*) 250 MG PO SCH (08:21)
[2019-01-02] MEDS: Aspirin 81 mg CHEW TAB* 81 MG TAB.CHEW PO SCH (08:21)
[2019-01-02] MEDS: Losartan TAB* 25 MG PO SCH (08:21)
[2019-01-02] MEDS: glipiZIDE TAB* 5 MG PO SCH (08:21)
[2019-01-02] MEDS: Insulin LISPRO* 1 UNITS UNIT SUBCUT SCH ×4 (08:21→12:13)
[2019-01-02] MEDS: Magnesium Oxide TAB* 400 MG PO SCH (08:21)
[2019-01-02] MEDS: NORETHINDRONE 5 MG PO SCH (08:22)
[2019-01-02 08:39] LABS: ABS Basophils 0.1 10^3/ul (0-0.2); ABS Eosinophils 0.5 10^3/ul (0-0.6); ABS Lymphocytes 3.1 10^3/ul (1.0-4.8); ABS Monocytes 0.4 10^3/ul (0-0.8); ABS Neutrophils 5.6 10^3/ul (1.5-7.7); ABS Nucleated RBC 0 10^3/ul; Eosinophil % 4.7 %; Hematocrit 28 % (35-47); Hemoglobin 9.7 g/dl (12.0-16.0); Mean Corpuscular HGB Conc 34 g/dl (31-36); Mean Corpuscular Hemoglobin 31 pg (27-31); Mean Corpuscular Volume 90 fL (80-97); Mean Platelet Volume 7.8 fL (7.4-10.4); Nucleated Red Blood Cells % 0; Platelet Count 390 10^3/ul (150-450); Red Blood Count 3.13 10^6/ul (4.00-5.40); Red Cell Distribution Width 15 % (10.5-15); White Blood Count 9.6 10^3/ul (3.5-10.8)
[2019-01-02 09:02] LABS: BUN/Creatinine Ratio 14.5 (8-20); Calcium 9.1 mg/dL (8.6-10.3); EGFR African American 98.3 (>60); EGFR Non-African American 81.2 (>60); Potassium 4.3 mmol/L (3.5-5.0)
[2019-01-02 12:07] LABS: TSH (Thyroid Stimulating Horm) 3.04 mcIU/mL (0.34-5.60)
[2019-01-02 12:54] VITALS: BP 152/82
--- NOTE | 2019-01-02 21:32 | DS ---
DISCHARGE SUMMARY: DATE OF ADMISSION: 12/30/18 DATE OF DISCHARGE: 01/02/19 PRIMARY CARE PROVIDER: Dr. Maxx Tripathi. PSYCHIATRIC AIDE INSTRUCTOR: Sheba Rae MD OR SCRUB TECH: Dr. Dr. Renea Sinha. ATTENDING PHYSICIAN: Randi Avalos MD * (DICTATED BY GUSTAVO HOPE) PRIMARY DIAGNOSES: 1. Vaginal bleeding. 2. Uncontrolled diabetes. 3. Anemia. SECONDARY DIAGNOSES: 1. Hypertension. 2. Hyperlipidemia. 3. Diabetes mellitus, type 2. 4. Morbid obesity. 5. Bipolar. STUDIES WHILE IN THE HOSPITAL: Chest x-ray, 12/30/18, impression: No evidence for acute intrathoracic disease. DISCHARGE MEDICATIONS: Home medications: 1. Multivitamin 1 cap p.o. q.a.m. 2. Insulin lispro 35 units subcutaneous t.i.d. 3. Aspirin 81 p.o. q.a.m. 4. Divalproex 500 mg p.o. at bedtime, 250 mg p.o. q.a.m. 5. Cyclobenzaprine 10 mg p.o. t.i.d. p.r.n. 6. Levothyroxine 25 mcg p.o. daily. 7. Atorvastatin 80 mg p.o. q.a.m. 8. Losartan/hydrochlorothiazide 100/25 mg 1 tab p.o. daily. 9. Glipizide 10 mg p.o. b.i.d. Changed home medications: 1. Insulin glargine 50 units subcu q.a.m., q.p.m. New home medications: 1. Norethindrone 1 dose p.o. b.i.d. 2. Canagliflozin 200 mg p.o. daily. Discontinued home medications: Medroxyprogesterone. HISTORY OF PRESENT ILLNESS/HOSPITAL COURSE: Ms. Ryan is a 48-year-old female with a past medical history as described above who presented to the ER due to vaginal bleeding. The patient states that she has had ongoing vaginal bleeding with clots for multiple days. The patient states that bleeding required menstrual pad changes approximately every hour for the past couple days. She states that she was bending over for toilet paper and lost consciousness. She woke when EMS arrived at her house. The patient relates a history of excessive vaginal bleeding since she began menstruating. She states that she follows with Dr. Rae for this issue. In the past, she has had Mirena placed and was put on medroxyprogesterone. Most recently, she was placed on medroxyprogesterone. The patient was going to have a D and C performed due to endometrial hyperplasia, but she was not cleared due to an extremely elevated blood sugar. She then began bleeding days later and presented to the hospital and was admitted. While in the hospital, the patient was put on medroxyprogesterone which was then switched to norethindrone at the recommendation of Gynecology. This medication substantially decreased the bleeding, and by the day of discharge, the patient was passing very small clots and only had a small amount of streaking on her sanitary napkin. It was noted that the patient did require 1 unit of packed red blood cells during her stay due to a drop in hemoglobin. After transfusion, the patient remained anemic, but stable in her hemoglobin and hematocrit. The patient's diabetes was relatively uncontrolled during her stay. Her Lantus was changed from 80 to 100 units a day at a dose of 50 q.12 hours. Canagliflozin was added to her regimen, which kept her blood sugars stable for some time. Within the first couple days, she never had a blood sugar over 260 despite reporting her normal home blood sugars were between 250 and 350. The following day, the patient tended to have higher blood glucose levels with the highest being 305. It was noted that the patient states she ate a large amount of pasta for dinner and her elevated blood sugar that was 305 was prior to bedtime on that same night. The patient refused diabetic education while in the hospital stating that she is aware of the changes that she needs to make to her diet and lifestyle, but states that she was having difficulty implementing these changes. Diabetic and nutritional consults were offered throughout her stay and she continued to refuse despite warning that it is imperative that lifestyle changes be made to avoid comorbidities. It was noted that the day prior to discharge, the patient did meet SIRS criteria with tachycardia and leukocytosis. The patient denied any signs or symptoms of infection or pulmonary embolism. When questioned about this, the patient states that she has had tachycardia for some time now. At her last primary care appointment, the patient was noted to have sinus tachycardia. Records were obtained an they confirmed this. The patient was asymptomatic throughout her visit and again was mildly tachycardic with a heart rate in the 90s to low 100s. Throughout her stay, she denied pleuritic chest pain, shortness of breath, or any type of decrease in exertional ability. She had no tenderness to palpation of the chest area. She denied cough, fever, abdominal pain, diarrhea, or changes in urination. Urinalysis was performed and was negative for infection. The patient's white count the following day was within normal limits. It is noted that her white count was only mildly elevated. At the time of discharge, the patient denies chest pain, shortness of breath, cough , fever, abdominal pain, nausea, vomiting, diarrhea, constipation, pain in the calves, or swelling in the lower extremities. She states that she continues to have small amounts of vaginal bleeding that result in small streaks on her sanitary napkin and do not require regular disposal. The patient continues to have sinus tachycardia and is asymptomatic. Blood sugars remain elevated. Ms. Ryan is stable for discharge. PHYSICAL EXAMINATION: Vital signs are temperature 98.3 orally, heart rate 107, respiratory rate 17, oxygen saturation 100%, blood pressure 152/82. Ms. Ryan is a well-developed, well-nourished, morbidly obese white woman who is sitting up in bed. She is in no acute distress. She appears well. HEENT: Visual keen are grossly intact. Pupils are equally round and reactive to light. Extraocular movements are intact. Sclerae are without icterus or paleness. Hearing is grossly intact. Oral mucous membranes are moist and without lesion. Pharynx is clear. Neck: The patient has full range of motion. The thyroid is not palpable. The trachea is at midline. There is no lymphadenopathy. Cardiovascular: S1, S2 present. Normal sinus rhythm, tachycardic rate. No murmurs, rubs, or gallops. There is no JVD. Respiratory : Symmetrical chest expansion. There is no use of accessory muscles. The lungs are clear to auscultation. There are no rhonchi, wheezes, or rubs. Abdomen: The abdomen is obese and is soft and nontender to palpation. There are bowel sounds in all quadrants. There is no hepatosplenomegaly. Musculoskeletal: The patient has full range of motion without pain or deformities. Extremities: Skin is warm and smooth bilaterally. There is no edema. No clubbing or cyanosis. Radial and pedal pulses are palpable. Neuro: The patient is awake. She is alert and oriented x3. She is able to move all of her extremities. She has a steady gait with no impairments. DISCHARGE PLAN: Ms. Ryan will be discharged to home. ACTIVITY: As tolerated. DIET: Strict ADA/diabetic diet. MEDICATIONS: As above. EDUCATION: 1. Follow up with Gynecology tomorrow as scheduled. Discuss details for continuation of norethindrone, which was prescribed at discharge. 2. Follow up with Endocrinology as soon as possible, within 1 week. Discuss medication changes and uncontrolled diabetes. 3. Follow up with primary care physician in 4 to 7 days. Discuss recent hospitalization, continued sinus tachycardia. 4. Meet with clinical informatics educator as scheduled next week. Discuss lifestyle and diet changes as necessary to ensure lowering of blood sugars. Had a marcie discussion that these are required for prevention of complications associated with diabetes. 5. Return to the ER or nearest hospital if you experience any worsening of symptoms, increase in vaginal bleeding, palpitations, extremely elevated blood sugars (over 500), shortness of breath, lightheadedness, dizziness, chest discomfort, high fevers, chills, night sweats, loss of consciousness, or any other worrisome signs or symptoms. This is a summarized report of a complex medical history and hospital stay. For further details, please see the entire medical record. TIME SPENT: Approximately 50 minutes was spent on this discharge, greater than half that time spent [id number] with the patient discussing discharge plans and instructions. GUSTAVO HOPE [id number]/CPS #: [id number] JOSEPHINE
== END 2019-01-02 12:55 | disposition home or self-care (01) | DRG 760 ==
LOC: ED 07:20 → MEDTELE 12:25
PROVIDERS: ADMIT Internal Medicine; ATTEND Internal Medicine
PROC: 30233N1 Transfusion of Nonautologous Red Blood Cells into Peripheral Vein, Percutaneous Approach (ICD-10-PCS; principal; 2018-12-31)
DX: N85.00 Endometrial hyperplasia, unspecified (principal); R65.10 Systemic inflammatory response syndrome (SIRS) of non-infectious origin without acute organ dysfunction; Z68.42 Body mass index [BMI] 45.0-49.9, adult; D50.0 Iron deficiency anemia secondary to blood loss (chronic); N92.4 Excessive bleeding in the premenopausal period; E11.65 Type 2 diabetes mellitus with hyperglycemia; K58.9 Irritable bowel syndrome, unspecified; M19.90 Unspecified osteoarthritis, unspecified site; E78.00 Pure hypercholesterolemia, unspecified; I10 Essential (primary) hypertension; J45.909 Unspecified asthma, uncomplicated; J42 Unspecified chronic bronchitis; G47.30 Sleep apnea, unspecified; M81.0 Age-related osteoporosis without current pathological fracture; E11.36 Type 2 diabetes mellitus with diabetic cataract; F41.9 Anxiety disorder, unspecified; F32.9 Major depressive disorder, single episode, unspecified; E83.42 Hypomagnesemia; E66.01 Morbid (severe) obesity due to excess calories; F31.9 Bipolar disorder, unspecified; Z79.82 Long term (current) use of aspirin; Z97.5 Presence of (intrauterine) contraceptive device; Z88.8 Allergy status to other drugs, medicaments and biological substances; Z88.5 Allergy status to narcotic agent; Z88.7 Allergy status to serum and vaccine; Z82.49 Family history of ischemic heart disease and other diseases of the circulatory system; Z90.49 Acquired absence of other specified parts of digestive tract; Z83.3 Family history of diabetes mellitus; Z79.4 Long term (current) use of insulin
CPT/HCPCS: 36415; 71045; 80048; 80053; 81003; 81015; 82550; 82803; 83605; 83735; 84443; 84484; 84702; 85014; 85018; 85025; 85027; 86850; 86900; 86901; 86922; 87086; 87088; 93005; 99284; A9270-GY; J3475; P9040

== ENCOUNTER 2019-08-14 14:05 | Emergency (ER) | payer MEDICARE, OTHER ==
[2019-08-14 15:03] LABS: ABS Basophils 0.1 10^3/ul (0-0.2); ABS Eosinophils 0.2 10^3/ul (0-0.6); ABS Lymphocytes 2.5 10^3/ul (1.0-4.8); ABS Monocytes 0.6 10^3/ul (0-0.8); ABS Neutrophils 8.6 10^3/ul (1.5-7.7); Hematocrit 35 % (35-47); Hemoglobin 12.4 g/dL (12.0-16.0); Lymphocyte % 20.6 %; Mean Corpuscular HGB Conc 35 g/dL (31-36); Mean Corpuscular Hemoglobin 31 pg (27-31); Mean Corpuscular Volume 87 fL (80-97); Mean Platelet Volume 7.9 fL (7.4-10.4); Platelet Count 337 10^3/uL (150-450); Red Blood Count 4.05 10^6 /uL (3.70-4.87); Red Cell Distribution Width 16 % (10-15); White Blood Count 11.9 10^3/uL (3.5-10.8)
--- NOTE | 2019-08-14 15:15 | ED ---
GI/ HPI - HPI Summary HPI Summary: Pt is a 48 y/o F with a history of uterine fibroids, dysfunction uterine bleeding and diabetes presenting to the ED with a chief complaint of vaginal bleeding. She has hx of uterine hyperplasia, uterine fibroids, and ovarian cysts. She has had C-sections, D&Cs, and many cervical biopsies. Today, around 1000, she began experiencing heavy vaginal bleeding with clots the size of her hand, with associated abdominal pain mainly in the LLQ, but diffusely across the lower abd radiating to her back. She also notes slight anxiety, nausea, and SOB. She denies myalgia anywhere else. She has been discussing a possible hysterectomy with her ENERGY TRADER but they are worried about her uncontrolled diabetes potentially leading to infection post- surgery. Patient states she is a strong family history of dysfunctional uterine bleeding. She is on medications for this. - History of Current Complaint Chief Complaint: EDVaginalBleeding Time Seen by Provider: 08/14/19 14:29 Stated Complaint: ABNORMAL BLEEDING Hx Obtained From: Patient Onset/Duration: Started Hours Ago, Still Present Timing: Constant, Lasting Hours Severity: Severe Current Severity: Severe Vaginal Bleeding Description: Clots Pain Intensity: 8 Location of Pain: Radiates to: - back, RLQ, LLQ Associated Signs and Symptoms: Positive: Back Pain, Nausea, Abdominal Pain, Other: - anxiety, shortness of breath Additional Signs & Symptoms: Positive: Vaginal Bleeding Aggravating Factor(s): Nothing Alleviating Factor(s): Nothing - Additional Pertinent History Primary Care Physician: [id number] - Allergy/Home Medications Allergies/Adverse Reactions: Allergies Allergy/AdvReac Type Severity Reaction Status Date / Time hydrocodone Allergy Hives Verified 08/14/19 14:35 linagliptin [From Tradjenta] Allergy Rash Verified 08/14/19 14:35 rubella virus live vaccine Allergy Hives/Diff. Verified 08/14/19 14:35 Breathing/I tching PMH/Surg Hx/FS Hx/Imm Hx Previously Healthy: Yes Endocrine/Hematology History: Reports: Hx Diabetes, Hx Thyroid Disease - underactive thyroid, Hx Anemia, Hx Unexplained Bleeding - irregular menstral bleeding from fibroids on uterine wall Cardiovascular History: Reports: Hx Angina, Hx Hypercholesterolemia, Hx Hypertension, Hx Syncope Respiratory History: Reports: Hx Asthma - USUALLY R/T TO [facility], Hx Chronic Bronchitis, Hx Chronic Obstructive Pulmonary Disease (COPD) - per pt., Hx Pneumonia, Hx Seasonal Allergies, Hx Sleep Apnea - believe so GI History: Reports: Hx Gall Bladder Disease - stones in duct, removed 2004, Hx Irritable Bowel Musculoskeletal History: Reports: Hx Arthritis, Hx Osteoporosis - fluid drained from left knee 2006 (?), Other Musculoskeletal History - left ankle ligament tear 2008 Sensory History: Reports: Hx Cataracts, Hx Contacts or Glasses - reading Denies: Hx Hearing Aid Opthamlomology History: Reports: Hx Cataracts, Hx Contacts or Glasses - reading Neurological History: Denies: Hx Headaches, Hx Migraine, Hx Seizures Psychiatric History: Reports: Hx Anxiety, Hx Depression, Hx Inpatient Treatment , Hx Community Mental Health Tx, Hx Bipolar Disorder, Hx Suicide Attempt - once Denies: Hx Eating Disorder, Hx Panic Disorder, Hx Post Traumatic Stress Disorder, Hx Schizophrenia, Hx of Violent Episodes Against Others, Hx Substance Abuse - Surgical History Surgery Procedure, Year, and Place: cholecystectomy, tubes in ears, D+C x2, C- section x2 Hx Anesthesia Reactions: No Infectious Disease History: No Infectious Disease History: Denies: Traveled Outside the [place] in Last 30 Days - Family History Known Family History: Positive: Cardiac Disease - Social History Alcohol Use: Rare Hx Substance Use: No Substance Use Type: Reports: None Hx Tobacco Use: No Smoking Status (MU): Never Smoked Tobacco Amount Used/How Often: only tried a few times Length of Time of Smoking/Using Tobacco: sporadic Have You Smoked in the Last Year: No - PER PT. NEVER TRULY A SMOKER JUST TRIED IT NOW AND THEN Review of Systems Positive: Shortness Of Breath Positive: Abdominal Pain, Nausea Positive: other - vaginal bleeding Negative: Myalgia Positive: Anxious All Other Systems Reviewed And Are Negative: Yes Physical Exam - Summary Physical Exam Summary: Constitutional: Well-developed, Well-nourished, Alert. (-) Distressed Skin: Warm, Dry HENT: Normocephalic; Atraumatic Eyes: Conjunctiva normal. Neck: Musculoskeletal ROM normal neck. (-) JVD, (-) Stridor, (-) Nuchal rigidity Cardio: Rhythm regular, tachycardic, Heart sounds normal; Intact distal pulses; Radial pulses are 2+ and symmetric. (-) Murmur Pulmonary/Chest wall: Effort normal. (-) Respiratory distress, (-) Wheezes, (-) Rales Abd: Soft, (-) tenderness, (-) Distension, (-) Guarding, (-) Rebound Musculoskeletal: (-) Edema Lymph: (-) Cervical adenopathy Neuro: Alert, Oriented x3 Psych: Mood and affect Normal Triage Information Reviewed: Yes Vital Signs On Initial Exam: Initial Vitals Temp Pulse Resp BP Pulse Ox 97.8 F 120 16 177/101 97 08/14/19 14:08 08/14/19 14:08 08/14/19 14:08 08/14/19 14:08 08/14/19 14:08 Vital Signs Reviewed: Yes Procedures - Sedation Patient Received Moderate/Deep Sedation with Procedure: No Diagnostics - Vital Signs Vital Signs Temp Pulse Resp BP Pulse Ox 08/14/19 14:08 97.8 F 120 16 177/101 97 - Laboratory Lab Results: Lab Results 08/14/19 08/14/19 Range/Units 14:55 14:55 WBC 11.9 H (3.5-10.8) 10^3/uL RBC 4.05 (3.70-4.87) 10^6 /uL Hgb 12.4 (12.0-16.0) g/dL Hct 35 (35-47) % MCV 87 (80-97) fL MCH 31 (27-31) pg MCHC 35 (31-36) g/dL RDW 16 H (10-15) % Plt Count 337 (150-450) 10^3/uL MPV 7.9 (7.4-10.4) fL Neut % (Auto) 71.6 % Lymph % (Auto) 20.6 % King % (Auto) 5.2 % Eos % (Auto) 2.0 % Baso % (Auto) 0.6 % Absolute Neuts (auto) 8.6 H (1.5-7.7) 10^3/ul Absolute Lymphs (auto) 2.5 (1.0-4.8) 10^3/ul Absolute Monos (auto) 0.6 (0-0.8) 10^3/ul Absolute Eos (auto) 0.2 (0-0.6) 10^3/ul Absolute Basos (auto) 0.1 (0-0.2) 10^3/ul Absolute Nucleated RBC 0.0 10^3/ul Nucleated RBC % 0.0 Blood Type A Negative Antibody Screen Pending Result Diagrams: 08/14/19 14:55 08/14/19 14:55 Lab Statement: Any lab studies that have been ordered have been reviewed, and results considered in the medical decision making process. - Ultrasound Transvaginal US Ultrasound Interpretation Completed By: Radiologist Summary of Ultrasound Findings: 1. LIMITED STUDY. 2. THE UTERUS IS ENLARGED AND HETEROGENEOUS WITH A COMPLEX CERVICAL NABOTHIAN CYST. 3. THE OVARIES ARE NOT WELL VISUALIZED. 4. THE ENDOMETRIAL STRIPE MEASURES 0.7 CM. ED physician has reviewed this report. Re-Evaluation - Re-Evaluation 1st re-eval Re-Evaluation Time: 15:24 Change: Unchanged Comment: Pt's blood sugar is 506. We'll give 2 L of IV fluids. 2nd re-eval Re-Evaluation Time: 16:52 Change: Improved Comment: Pt is feeling better, HR is down to 110's. 1 more liter of IV fluids ordered. Second Eval Re-Evaluation Time: 19:30 Change: Improved - HR 105, BG 200's. F/u w OB GIGU Course/Dx - Course Course Of Treatment: 40-year-old female with a history of uterine fibroids, cervical cyst, functional uterine bleeding and diabetes presents with vaginal bleeding. Physical exam of the well-appearing female, tachycardic in the 130s. Abdomen is soft, benign. Patient has had numerous presentations in the past, required transfusion several months ago. Check labs including a CBC, type and screen. Check a transvaginal ultrasound, patient has follow up with [facility]ER[facility] TR[facility]ER however they have deferred her hysterectomy secondary to her blood sugar being elevated. We'll check a BMP as well as provide fluids. Bleeding has slowed down in the ED, will continue to monitor. - Diagnoses Provider Diagnoses: Hyperglycemia, Vaginal bleeding Discharge ED - Sign-Out/Discharge Documenting (check all that apply): Patient Departure - Discharge Plan Condition: Stable Disposition: HOME Patient Education Materials: Dysfunctional Uterine Bleeding (ED), Diabetic Hyperglycemia (ED) Referrals: Maxx Tripathi MD [Primary Care Provider] - Sheba Rae MD [Medical Doctor] - Additional Instructions: You were seen in the emergency department for vaginal bleeding. Your ultrasound showed a cyst on your cervix, please follow up with ENERGY TRADER about this. Her blood sugar was elevated, we gave fluids. Please make sure to take her medications. If any studies were not completed at the time of discharge you will be called with the relevant results. Please follow up with your primary care doctor in next 2-3 days and return to emergency department for worsening bleeding, passing out, severe abdominal pain , or concerning symptoms. It was a pleasure taking care of you today. - Billing Disposition and Condition Condition: STABLE Disposition: Home - Attestation Statements Document Initiated by Saniya: Yes Documenting Scribe: Lisa Perez Provider For Whom Saniya is Documenting (Include Credential): Andrew Gonzalez MD. Scribe Attestation: I, Lisa Perez, scribed for Andrew Gonzalez MD. on 08/14/19 at 1951. Scribe Documentation Reviewed: Yes Provider Attestation: The documentation as recorded by the Lisa corea accurately reflects the service I personally performed and the decisions made by me, Andrew Gonzalez MD. Status of Scribe Document: Viewed
[2019-08-14 15:22] LABS: BUN/Creatinine Ratio 24.3 (8-20); Calcium 9.1 mg/dL (8.6-10.3); EGFR African American 66.2 (>60); EGFR Non-African American 54.7 (>60); Potassium 4.1 mmol/L (3.5-5.0)
[2019-08-14 15:28] LABS: HCG Pregnancy 2.6 mIU/mL
[2019-08-14] MEDS: NS 0.9% 1000 ML** 1,000 ML IV ONE ×3 (16:16→18:13)
[2019-08-14 19:35] VITALS: BP 150/90
== END 2019-08-14 19:30 | disposition home or self-care (01) ==
LOC: ED 14:05
DX: N93.9 Abnormal uterine and vaginal bleeding, unspecified (principal); E11.65 Type 2 diabetes mellitus with hyperglycemia; E03.9 Hypothyroidism, unspecified; D64.9 Anemia, unspecified; E78.00 Pure hypercholesterolemia, unspecified; I10 Essential (primary) hypertension; J44.9 Chronic obstructive pulmonary disease, unspecified; F41.9 Anxiety disorder, unspecified; F31.9 Bipolar disorder, unspecified; Z90.49 Acquired absence of other specified parts of digestive tract; Z88.5 Allergy status to narcotic agent; Z88.7 Allergy status to serum and vaccine; Z88.8 Allergy status to other drugs, medicaments and biological substances; Z79.4 Long term (current) use of insulin; Z79.890 Hormone replacement therapy; Z79.899 Other long term (current) drug therapy
CPT/HCPCS: 36415; 76830; 80048; 84702; 85025; 86850; 86900; 86901; 96360; 96361; 99283

== ENCOUNTER 2019-08-16 07:46 | Emergency (ER) | payer MEDICARE, OTHER ==
[2019-08-16] MEDS ORDERED: Ondansetron INJ* 2 MG/ML VIAL IV ONE (08:18)
[2019-08-16] MEDS: NS 0.9% 1000 ML** 2,000 ML IV ONE ×2 (08:32→08:33)
[2019-08-16 08:52] LABS: ABS Basophils 0.1 10^3/ul (0-0.2); ABS Eosinophils 0.3 10^3/ul (0-0.6); ABS Lymphocytes 3.2 10^3/ul (1.0-4.8); ABS Monocytes 0.5 10^3/ul (0-0.8); ABS Neutrophils 6.7 10^3/ul (1.5-7.7); Eosinophil % 2.8 %; Hematocrit 31 % (35-47); Hemoglobin 10.6 g/dL (12.0-16.0); Lymphocyte % 29.4 %; Mean Corpuscular HGB Conc 35 g/dL (31-36); Mean Corpuscular Hemoglobin 31 pg (27-31); Mean Corpuscular Volume 88 fL (80-97); Mean Platelet Volume 7.5 fL (7.4-10.4); Platelet Count 308 10^3/uL (150-450); Red Blood Count 3.46 10^6 /uL (3.70-4.87); Red Cell Distribution Width 16 % (10-15); White Blood Count 10.8 10^3/uL (3.5-10.8)
[2019-08-16 09:17] LABS: Activated Partial Thrombo Time 30.3 seconds (26.0-38.0); INR 0.93 (0.82-1.09)
[2019-08-16 09:18] LABS: Albumin 3.4 g/dL (3.2-5.2); Albumin/Globulin Ratio 1.3 (1-3); BUN/Creatinine Ratio 21.2 (8-20); Calcium 8.1 mg/dL (8.6-10.3); EGFR African American 86.4 (>60); EGFR Non-African American 71.4 (>60); Globulin 2.7 g/dL (2-4); Potassium 3.7 mmol/L (3.5-5.0); Total Bilirubin 0.4 mg/dL (0.2-1.0); Total Protein 6.1 g/dL (6.4-8.9)
[2019-08-16 10:23] LABS: Urine Appearance Cloudy; Urine Bacteria Absent (Absent); Urine Bilirubin Negative (Negative); Urine Blood 3+ (Negative); Urine Color Yellow; Urine Glucose Negative (Negative); Urine Ketones Negative (Negative); Urine Nitrite Negative (Negative); Urine Protein 1+(30 mg/dL) (Negative); Urine Red Blood Cell 3+(>10/hpf) (Absent); Urine Specific Gravity 1.012 (1.010-1.030); Urine Squamous Epithelial Cell Present (Absent); Urine Urobilinogen Negative (Negative); Urine White Blood Cell 3+(>20/hpf) (Absent)
[2019-08-16] MEDS ORDERED: Tranexamic Acid 1,000 MG/10 ML 1,000 MG in NS 0.9% 50 ML* 50 ML IV ONE (10:31)
--- NOTE | 2019-08-16 10:50 | ED ---
Abdominal Pain/Female - HPI Summary HPI Summary: This patient is a 48-year-old female with a history of DUB, fibroids and uncontrolled diabetes with an elevated A1c presenting to the ED with chief complaint of severe vaginal bleeding. Patient was seen in the ED 2 days ago, was found to have a glucose of over 500, but H&H was stable. She was repleted with plenty of fluids and due to the decrease in the amount of vaginal bleeding , patient was discharged home with close follow-up to Dr. Rae, AUTOMOTIVE SALES REPRESENTATIVE. Patient states yesterday she was feeling well with very minimal vaginal bleeding , however last evening she had a "gush" of severe bleeding at dinner time and since then has been having bleeding through 1 pad every 2-3 hours. She is also endorsing left-sided abdominal pain which is typical for her due to her fibroids. She also has a history of ovarian cysts and uterine hyperplasia. Endorses clots, approximately fist size. Past surgical history includes C-sections, D&Cs and multiple cervical biopsies. She is currently not a candidate for hysterectomy due to her elevated A1c per anesthesiology. Family history includes . Currently taking norethindrone. Recently discontinued the Mirena back in December of this year. - History of Current Complaint Chief Complaint: EDVaginalBleeding Stated Complaint: IRREGULAR BLEEDING PER PT Time Seen by Provider: 08/16/19 07:58 Hx Obtained From: Patient, Family/Mud Analysis Operator ?: No Onset/Duration: Sudden Onset Timing: Constant Severity Initially: Severe Severity Currently: Severe Pain Intensity: 0 Pain Scale Used: 0-10 Numeric Location: Epigastric Radiates: No Aggravating Factor(s): Nothing Alleviating Factor(s): Nothing Associated Signs and Symptoms: Positive: Vaginal Bleeding, Nausea Allergies/Adverse Reactions: Allergies Allergy/AdvReac Type Severity Reaction Status Date / Time hydrocodone Allergy Hives Verified 08/16/19 08:14 linagliptin [From Tradjenta] Allergy Rash Verified 08/16/19 08:14 rubella virus live vaccine Allergy Hives/Diff. Verified 08/16/19 08:14 Breathing/I tching PMH/Surg Hx/FS Hx/Imm Hx Previously Healthy: Yes Endocrine/Hematology History: Reports: Hx Diabetes, Hx Thyroid Disease - underactive thyroid, Hx Anemia, Hx Unexplained Bleeding - irregular menstral bleeding from fibroids on uterine wall Cardiovascular History: Reports: Hx Angina, Hx Hypercholesterolemia, Hx Hypertension, Hx Syncope Respiratory History: Reports: Hx Asthma - USUALLY R/T TO BRONCHITES, Hx Chronic Bronchitis, Hx Chronic Obstructive Pulmonary Disease (COPD) - per pt., Hx Pneumonia, Hx Seasonal Allergies, Hx Sleep Apnea - believe so GI History: Reports: Hx Gall Bladder Disease - stones in duct, removed 2004, Hx Irritable Bowel Musculoskeletal History: Reports: Hx Arthritis, Hx Osteoporosis - fluid drained from left knee 2006 (?), Other Musculoskeletal History - left ankle ligament tear 2008 Sensory History: Reports: Hx Cataracts, Hx Contacts or Glasses - reading Denies: Hx Hearing Aid Opthamlomology History: Reports: Hx Cataracts, Hx Contacts or Glasses - reading Neurological History: Denies: Hx Headaches, Hx Migraine, Hx Seizures Psychiatric History: Reports: Hx Anxiety, Hx Depression, Hx Inpatient Treatment , Hx Community Mental Health Tx, Hx Bipolar Disorder, Hx Suicide Attempt - once Denies: Hx Eating Disorder, Hx Panic Disorder, Hx Post Traumatic Stress Disorder, Hx Schizophrenia, Hx of Violent Episodes Against Others, Hx Substance Abuse - Surgical History Surgery Procedure, Year, and Place: cholecystectomy, tubes in ears, D+C x2, C- section x2 Hx Anesthesia Reactions: No - Immunization History Hx Pertussis Vaccination: No Immunizations Up to Date: Yes Infectious Disease History: No Infectious Disease History: Denies: Traveled Outside the [place] in Last 30 Days - Family History Known Family History: Positive: Cardiac Disease - Social History Occupation: Employed Full-time Lives: With Family Alcohol Use: Rare Hx Substance Use: No Substance Use Type: Reports: None Hx Tobacco Use: No Smoking Status (MU): Never Smoked Tobacco Amount Used/How Often: only tried a few times Length of Time of Smoking/Using Tobacco: sporadic Have You Smoked in the Last Year: No - PER PT. NEVER TRULY A SMOKER JUST TRIED IT NOW AND THEN Review of Systems Negative: Fever, Chills, Fatigue, Skin Diaphoresis Negative: Palpitations, Chest Pain Negative: Shortness Of Breath, Cough Positive: Abdominal Pain, Nausea, Other - vaginal bleeding Genitourinary: Negative Positive: no symptoms reported, see HPI Negative: Arthralgia, Myalgia Skin: Negative Neurological: Negative All Other Systems Reviewed And Are Negative: Yes Physical Exam Triage Information Reviewed: Yes Vital Signs On Initial Exam: Initial Vitals Temp Pulse Resp BP Pulse Ox 96.4 F 113 17 140/91 98 08/16/19 07:53 08/16/19 07:53 08/16/19 07:53 08/16/19 07:53 08/16/19 07:53 Vital Signs Reviewed: Yes Appearance: Positive: Well-Appearing, Well-Nourished Skin: Positive: Warm, Skin Color Reflects Adequate Perfusion Head/Face: Positive: Normal Head/Face Inspection Eyes: Positive: EOMI, MICHAEL Neck: Positive: Supple, No Lymphadenopathy Respiratory/Lung Sounds: Positive: Clear to Auscultation, Breath Sounds Present Cardiovascular: Positive: RRR, Pulses are Symmetrical in both Upper and Lower Extremities Bowel Sounds: Positive: Present Musculoskeletal: Positive: Strength/ROM Intact Neurological: Positive: Speech Normal Psychiatric: Positive: Normal, Affect/Mood Appropriate Procedures - Sedation Patient Received Moderate/Deep Sedation with Procedure: No Diagnostics - Vital Signs Vital Signs Temp Pulse Resp BP Pulse Ox 08/16/19 08:13 107 129/106 98 08/16/19 07:53 96.4 F 113 17 140/91 98 - Laboratory Lab Results: Lab Results 08/16/19 08/16/19 08/16/19 Range/Units 08:40 08:40 08:40 WBC 10.8 (3.5-10.8) 10^3/uL RBC 3.46 L (3.70-4.87) 10^6 /uL Hgb 10.6 L (12.0-16.0) g/dL Hct 31 L (35-47) % MCV 88 (80-97) fL MCH 31 (27-31) pg MCHC 35 (31-36) g/dL RDW 16 H (10-15) % Plt Count 308 (150-450) 10^3/uL MPV 7.5 (7.4-10.4) fL Neut % (Auto) 62.2 % Lymph % (Auto) 29.4 % Haakon % (Auto) 4.8 % Eos % (Auto) 2.8 % Baso % (Auto) 0.8 % Absolute Neuts (auto) 6.7 (1.5-7.7) 10^3/ul Absolute Lymphs (auto) 3.2 (1.0-4.8) 10^3/ul Absolute Monos (auto) 0.5 (0-0.8) 10^3/ul Absolute Eos (auto) 0.3 (0-0.6) 10^3/ul Absolute Basos (auto) 0.1 (0-0.2) 10^3/ul Absolute Nucleated RBC 0.0 10^3/ul Nucleated RBC % 0.0 INR (Anticoag Therapy) 0.93 (0.82-1.09) APTT 30.3 (26.0-38.0) seconds Sodium 136 (135-145) mmol/L Potassium 3.7 (3.5-5.0) mmol/L Chloride 106 (101-111) mmol/L Carbon Dioxide 21 L (22-32) mmol/L Anion Gap 9 (2-11) mmol/L BUN 18 (6-24) mg/dL Creatinine 0.85 (0.51-0.95) mg/dL Est GFR ( Amer) 86.4 (>60) Est GFR (Non-Af Amer) 71.4 (>60) BUN/Creatinine Ratio 21.2 H (8-20) Glucose 200 H (70-100) mg/dL Lactic Acid (0.5-2.0) mmol/L Calcium 8.1 L (8.6-10.3) mg/dL Total Bilirubin 0.40 (0.2-1.0) mg/dL AST 11 L (13-39) U/L ALT 15 (7-52) U/L Alkaline Phosphatase 74 (34-104) U/L Total Protein 6.1 L (6.4-8.9) g/dL Albumin 3.4 (3.2-5.2) g/dL Globulin 2.7 (2-4) g/dL Albumin/Globulin Ratio 1.3 (1-3) Urine Color Urine Appearance Urine pH (5-9) Ur Specific Dittmer (1.010-1.030) Urine Protein (Negative) Urine Ketones (Negative) Urine Blood (Negative) Urine Nitrate (Negative) Urine Bilirubin (Negative) Urine Urobilinogen (Negative) Ur Leukocyte Esterase (Negative) Urine WBC (Auto) (Absent) Urine RBC (Auto) (Absent) Ur Squamous Epith Cells (Absent) Urine Bacteria (Absent) Urine Glucose (Negative) 08/16/19 08/16/19 Range/Units 08:40 09:45 WBC (3.5-10.8) 10^3/uL RBC (3.70-4.87) 10^6 /uL Hgb (12.0-16.0) g/dL Hct (35-47) % MCV (80-97) fL MCH (27-31) pg MCHC (31-36) g/dL RDW (10-15) % Plt Count (150-450) 10^3/uL MPV (7.4-10.4) fL Neut % (Auto) % Lymph % (Auto) % Haakon % (Auto) % Eos % (Auto) % Baso % (Auto) % Absolute Neuts (auto) (1.5-7.7) 10^3/ul Absolute Lymphs (auto) (1.0-4.8) 10^3/ul Absolute Monos (auto) (0-0.8) 10^3/ul Absolute Eos (auto) (0-0.6) 10^3/ul Absolute Basos (auto) (0-0.2) 10^3/ul Absolute Nucleated RBC 10^3/ul Nucleated RBC % INR (Anticoag Therapy) (0.82-1.09) APTT (26.0-38.0) seconds Sodium (135-145) mmol/L Potassium (3.5-5.0) mmol/L Chloride (101-111) mmol/L Carbon Dioxide (22-32) mmol/L Anion Gap (2-11) mmol/L BUN (6-24) mg/dL Creatinine (0.51-0.95) mg/dL Est GFR ( Amer) (>60) Est GFR (Non-Af Amer) (>60) BUN/Creatinine Ratio (8-20) Glucose (70-100) mg/dL Lactic Acid 1.6 (0.5-2.0) mmol/L Calcium (8.6-10.3) mg/dL Total Bilirubin (0.2-1.0) mg/dL AST (13-39) U/L ALT (7-52) U/L Alkaline Phosphatase (34-104) U/L Total Protein (6.4-8.9) g/dL Albumin (3.2-5.2) g/dL Globulin (2-4) g/dL Albumin/Globulin Ratio (1-3) Urine Color Yellow Urine Appearance Cloudy Urine pH 5.0 (5-9) Ur Specific Dittmer 1.012 (1.010-1.030) Urine Protein 1+(30 mg/dl) A (Negative) Urine Ketones Negative (Negative) Urine Blood 3+ A (Negative) Urine Nitrate Negative (Negative) Urine Bilirubin Negative (Negative) Urine Urobilinogen Negative (Negative) Ur Leukocyte Esterase 2+ A (Negative) Urine WBC (Auto) 3+(>20/hpf) A (Absent) Urine RBC (Auto) 3+(>10/hpf) A (Absent) Ur Squamous Epith Cells Present A (Absent) Urine Bacteria Absent (Absent) Urine Glucose Negative (Negative) Result Diagrams: 08/16/19 08:40 08/16/19 08:40 Lab Statement: Any lab studies that have been ordered have been reviewed, and results considered in the medical decision making process. Abdominal Pain Fem Course/Dx - Course Course Of Treatment: During this patients course of treatment, she is evaluated for dysfunctional uterine bleeding and left-sided abdominal pain. Denies any urinary symptoms. Vital signs stable on arrival except for a slightly elevated heart rate. She was given 2 L fluids and this decreased from 113 to a repeat of 105. BP elevated at 140/91. Respirations 17. She is afebrile. In the ED she is given 2 L fluids as well as Zofran with good relief. Bleeding decreased since arrival to the ED. H&H as of 08/14/19 was 4 and 12.4, subsequently today it is 3.4 and 10.6. Glucose at 200 and a BUN of 18. Sodium 136. Urine shows leukocytes, WBCs as well as squamous epithelial cells. Possibly contaminant. Patient denies any symptoms. Well await sensitivities. No antibiotic given. Discussed case with Dr. Andrew. Discussed case with Dr. Gong, AUTOMOTIVE SALES REPRESENTATIVE who recommends either Lupron, high-dose NSAIDs or TXA. TXA 1000 mg IV given in ED. Per recommendations according to UTD, 1300 mg 3 times daily 5 days for dysfunctional uterine fibroid bleeding/ heavy menstrual cycle. Creatinine 0.85. Patient is stable at discharge and she is given strict return precautions for heavy bleeding, worsening pain, dizziness or soaking through 1 pad per hour. She is given information on embolization as she may be a candidate. She will follow-up with Dr. Tony office as soon as possible and will call today to make an appointment. - Diagnoses Differential Diagnosis: Positive: Other - Dysfunctional uterine bleeding, fibroids, ovarian cysts, uterine hyperplasia Provider Diagnoses: Vaginal bleeding - Provider Notifications Discussed Care Of Patient With: Marco Gong Instructed by Provider To: Have Pt Call For Appt. - Call to make an appt with Dr. Kyra ESCLAONA and begin TXA Discharge ED - Sign-Out/Discharge Documenting (check all that apply): Patient Departure - Discharge Plan Condition: Stable Disposition: HOME Prescriptions: Tranexamic Acid [Lysteda] 1,300 mg PO TID #30 tablet Patient Education Materials: Dysfunctional Uterine Bleeding (ED), Embolization (DC) Referrals: Maxx Tripathi MD [Primary Care Provider] - Sheba Rae MD [Medical Doctor] - Additional Instructions: Please follow up with Dr. Rae Drink plenty of water If you develop any worsening or changing symptoms, return to the ED Please take Lysteda 1300mg three times daily x [address] Rae's office for a follow up Get in as soon as possible You may be a candidate for embolization (per Dr. Gong), so I have given you information If you are bleeding through over 1 pad per hour or develop any dizziness- you need to return to the ED - Billing Disposition and Condition Condition: STABLE Disposition: Home - Attestation Statements Provider Attestation: I was available for consult. This patient was seen by the SOFIYA. The patient was not presented to, seen by, or examined by me. Leo Andrew MD
[2019-08-16 12:38] VITALS: BP 153/98
== END 2019-08-16 12:38 | disposition home or self-care (01) ==
LOC: ED 07:46
DX: N93.9 Abnormal uterine and vaginal bleeding, unspecified (principal); E11.9 Type 2 diabetes mellitus without complications; E03.9 Hypothyroidism, unspecified; E78.00 Pure hypercholesterolemia, unspecified; I10 Essential (primary) hypertension; J44.9 Chronic obstructive pulmonary disease, unspecified; F41.9 Anxiety disorder, unspecified; F32.9 Major depressive disorder, single episode, unspecified; Z90.49 Acquired absence of other specified parts of digestive tract; Z88.5 Allergy status to narcotic agent; Z88.7 Allergy status to serum and vaccine; Z88.8 Allergy status to other drugs, medicaments and biological substances; Z79.82 Long term (current) use of aspirin; Z79.890 Hormone replacement therapy; Z79.4 Long term (current) use of insulin; Z79.899 Other long term (current) drug therapy
CPT/HCPCS: 36415; 80053; 81003; 81015; 83605; 85025; 85610; 85730; 87086; 96361; 96365; 96375; 99282; J2405

== ENCOUNTER 2019-08-18 23:54 | Emergency (ER) | payer MEDICARE ==
[2019-08-19] MEDS ORDERED: Ketorolac INJ* 30 MG/ML 1 ML VIAL IV ONE (01:08)
[2019-08-19] MEDS ORDERED: NS 0.9% 1000 ML** 1,000 ML IV ONE (01:08)
[2019-08-19 01:29] LABS: ABS Basophils 0.1 10^3/ul (0-0.2); ABS Eosinophils 0.3 10^3/ul (0-0.6); ABS Lymphocytes 2.9 10^3/ul (1.0-4.8); ABS Monocytes 0.7 10^3/ul (0-0.8); ABS Neutrophils 9.4 10^3/ul (1.5-7.7); Eosinophil % 1.9 %; Hematocrit 28 % (35-47); Hemoglobin 9.6 g/dL (12.0-16.0); Lymphocyte % 21.8 %; Mean Corpuscular HGB Conc 35 g/dL (31-36); Mean Corpuscular Hemoglobin 31 pg (27-31); Mean Corpuscular Volume 89 fL (80-97); Mean Platelet Volume 7.6 fL (7.4-10.4); Nucleated Red Blood Cells % 0.1; Platelet Count 331 10^3/uL (150-450); Red Blood Count 3.11 10^6 /uL (3.70-4.87); Red Cell Distribution Width 16 % (10-15); White Blood Count 13.4 10^3/uL (3.5-10.8)
--- NOTE | 2019-08-19 01:33 | ED ---
GI/ HPI - HPI Summary HPI Summary: Pt is a 48 y/o F presenting to the ED with a chief complaint of vaginal bleeding. Pt states she came here on 08/14/19 where she received 3L IV fluids, had a pelvic US done where they saw a cervical cyst, and was sent home. She came back two days after where she was given TXA and 1 bag of IV fluids. She was instructed to call her RELEASE ENGINEER which she has not done yet d/t continuous bleeding. She came back tonight because the amount of blood increased, is accompanied by abd pain, and increased dizziness/syncopal episode. She notes nausea, LLQ abd pain, dizziness, and syncopal episode lasting a few minutes around 2200. Extensive hx of RELEASE ENGINEER issues. - History of Current Complaint Chief Complaint: EDVaginalBleeding Time Seen by Provider: 08/19/19 01:08 Stated Complaint: BLEEDING, HYPERGLYCEMIA PER EMS Hx Obtained From: Patient Onset/Duration: Started Hours Ago, Still Present Timing: Constant, Lasting Hours Severity: Moderate Current Severity: Severe Vaginal Bleeding Description: Clots Pain Intensity: 10 Location of Pain: LLQ Pain Characteristics: Cramping Associated Signs and Symptoms: Positive: Dizziness, Syncope, Nausea, Abdominal Pain Additional Signs & Symptoms: Positive: Vaginal Bleeding Aggravating Factor(s): Nothing Alleviating Factor(s): Nothing - Additional Pertinent History Primary Care Physician: [id number] - Allergy/Home Medications Allergies/Adverse Reactions: Allergies Allergy/AdvReac Type Severity Reaction Status Date / Time hydrocodone Allergy Hives Verified 08/19/19 00:01 linagliptin [From Tradjenta] Allergy Rash Verified 08/19/19 00:01 rubella virus live vaccine Allergy Hives/Diff. Verified 08/19/19 00:01 Breathing/I tching Home Medications: Home Medications Insulin Glargine,Hum.rec.anlog [Basaglar Kwikpen U-100] 30 units SUBCUT BEDTIME 08/19/19 [History Confirmed 08/19/19] Insulin Glargine,Hum.rec.anlog [Basaglar Kwikpen U-100] 30 units SUBCUT QAM [History Confirmed 08/19/19] PMH/Surg Hx/FS Hx/Imm Hx Previously Healthy: Yes Endocrine/Hematology History: Reports: Hx Diabetes, Hx Thyroid Disease - underactive thyroid, Hx Anemia, Hx Unexplained Bleeding - irregular menstral bleeding from fibroids on uterine wall Cardiovascular History: Reports: Hx Angina, Hx Hypercholesterolemia, Hx Hypertension, Hx Syncope Respiratory History: Reports: Hx Asthma - USUALLY R/T TO BRONCHITES, Hx Chronic Bronchitis, Hx Chronic Obstructive Pulmonary Disease (COPD) - per pt., Hx Pneumonia, Hx Seasonal Allergies, Hx Sleep Apnea - believe so GI History: Reports: Hx Gall Bladder Disease - stones in duct, removed 2004, Hx Irritable Bowel Musculoskeletal History: Reports: Hx Arthritis, Hx Osteoporosis - fluid drained from left knee 2006 (?), Other Musculoskeletal History - left ankle ligament tear 2008 Sensory History: Reports: Hx Cataracts, Hx Contacts or Glasses - reading Denies: Hx Hearing Aid Opthamlomology History: Reports: Hx Cataracts, Hx Contacts or Glasses - reading Neurological History: Denies: Hx Headaches, Hx Migraine, Hx Seizures Psychiatric History: Reports: Hx Anxiety, Hx Depression, Hx Inpatient Treatment , Hx Community Mental Health Tx, Hx Bipolar Disorder, Hx Suicide Attempt - once Denies: Hx Eating Disorder, Hx Panic Disorder, Hx Post Traumatic Stress Disorder, Hx Schizophrenia, Hx of Violent Episodes Against Others, Hx Substance Abuse - Surgical History Surgery Procedure, Year, and Place: cholecystectomy, tubes in ears, D+C x2, C- section x2 Hx Anesthesia Reactions: No Infectious Disease History: No Infectious Disease History: Denies: Traveled Outside the [place] in Last 30 Days - Family History Known Family History: Positive: Cardiac Disease - Social History Alcohol Use: Rare Hx Substance Use: No Substance Use Type: Reports: None Hx Tobacco Use: No Smoking Status (MU): Never Smoked Tobacco Amount Used/How Often: only tried a few times Length of Time of Smoking/Using Tobacco: sporadic Have You Smoked in the Last Year: No - PER PT. NEVER TRULY A SMOKER JUST TRIED IT NOW AND THEN Review of Systems - ROS Summary Review of Systems Summary: Home Medications Medication Instructions Recorded Confirmed Type Aspirin 81 mg CHEW TAB* 81 mg PO QAM 02/14/15 08/19/19 History Atorvastatin* [Lipitor 80 MG*] 80 mg PO QAM 02/14/15 08/19/19 History Multivitamin [Multivitamins] 1 cap PO QAM 02/14/15 08/19/19 History Levothyroxine TAB* [Synthroid 25 25 mcg PO 0800 09/09/16 08/19/19 History MCG TAB*] glipiZIDE TAB* [Glucotrol TAB*] 10 mg PO BID 09/09/16 08/19/19 History Insulin Lispro [Admelog Solostar] 35 units SUBCUT TID 11/30/18 08/19/19 History Cyclobenzaprine TAB* [Flexeril 10 10 mg PO TID PRN 12/30/18 08/19/19 History MG TAB*] Losartan/Hydrochlorothiazide 1 tab PO DAILY 12/30/18 08/19/19 History [Losartan-Hctz 100-25 mg Tab] Norethindrone (NF) [Viktoriya (NF)] 1 dose PO BID #14 tab 01/02/19 08/19/19 Rx Tranexamic Acid [Lysteda] 1,300 mg PO TID #30 tablet 08/16/19 08/19/19 Rx Insulin Glargine,Hum.rec.anlog 30 units SUBCUT BEDTIME 08/19/19 08/19/19 History [Basaglar Kwikpen U-100] Insulin Glargine,Hum.rec.anlog 30 units SUBCUT QAM 08/19/19 08/19/19 History [Basaglar Kwikpen U-100] Positive: Abdominal Pain, Nausea Positive: other - vaginal bleeding Neurological: Other - dizziness Positive: Syncope All Other Systems Reviewed And Are Negative: Yes Physical Exam - Summary Physical Exam Summary: General: Morbidly obese, Well-nourished female. No acute distress. HEENT: Normocephalic, Atraumatic. Eyes: Conjuctiva normal, PERRL. Ears: TMs within normal limits. Nares: (-) discharge, (-) erythema. Oropharynx: Clear, mucous membranes moist, (-) exudates. Neck: Soft, FROM, (-) lymphadenopathy, (-) thyromegaly, (-) JVD. Cardiovascular: Normal sinus rhythm, (-) murmur. Lungs: Clear to auscultation bilaterally (-) wheezes, (-) rales, (-) rhonchi. Abdomen: Protuberance with mild LLQ tenderness, (-) organomegaly, normal bowel sounds. Back: (-) CVA tenderness Extremities: No edema. Skin: Warm, dry, (-) rash. Neuro: Alert and oriented x3, no focal deficits. Psychiatric: Mood normal, affect normal. Triage Information Reviewed: Yes Vital Signs On Initial Exam: Initial Vitals Temp Pulse Resp BP Pulse Ox 98.2 F 122 15 153/103 98 08/18/19 23:57 08/18/19 23:57 08/18/19 23:57 08/18/19 23:57 08/18/19 23:57 Vital Signs Reviewed: Yes Procedures - Sedation Patient Received Moderate/Deep Sedation with Procedure: No Diagnostics - Vital Signs Vital Signs Temp Pulse Resp BP Pulse Ox 08/18/19 23:57 98.2 F 122 15 153/103 98 - Laboratory Result Diagrams: 08/19/19 01:16 08/19/19 01:16 Lab Statement: Any lab studies that have been ordered have been reviewed, and results considered in the medical decision making process. Re-Evaluation - Re-Evaluation 1st re-eval Re-Evaluation Time: 03:45 Change: Improved Comment: I have discussed results with the patient and her current sx have resolved. Discussed symptoms that warrant immediate return to ED. GIGU Course/Dx - Course Course Of Treatment: Pt is a 48 y/o F presenting to the ED with a chief complaint of vaginal bleeding. Pt states she came here on 08/14/19 where she received 3L IV fluids, had a pelvic US done where they saw a cervical cyst, and was sent home. She came back two days after where she was given TXA and 1 bag of IV fluids. She was instructed to call her RELEASE ENGINEER which she has not done yet d /t continuous bleeding. She notes nausea, LLQ abd pain, dizziness, and syncopal episode lasting a few minutes around 2200. Extensive hx of RELEASE ENGINEER issues. On exam, pt is morbidly obese and abd is protuberant with mild LLQ tenderness. In the ED course, pt was given Toradol and IV fluids. Pts lab results show WBC of of 13.4, RBC of 3.11, Hgb of 9.6, Hct of 28, and Glucose of 288. As of 344 , I have discussed results with the patient and her current sx have resolved. Discussed symptoms that warrant immediate return to ED. Pt will be d/c'ed with dx of dysfunctional uterine bleeding. - Diagnoses Provider Diagnoses: Dysfunctional uterine bleeding Discharge ED - Sign-Out/Discharge Documenting (check all that apply): Patient Departure - Discharge Plan Condition: Stable Disposition: HOME Patient Education Materials: Dysfunctional Uterine Bleeding (ED) Referrals: Maxx Tripathi MD [Primary Care Provider] - Additional Instructions: Please follow up with your RELEASE ENGINEER. Please return to ED for any new or worsening symptoms. - Billing Disposition and Condition Condition: STABLE Disposition: Home - Attestation Statements Document Initiated by Scribe: Yes Documenting Scribe: Lisa Perez Provider For Whom Saniya is Documenting (Include Credential): Ann Hand MD. Scribe Attestation: ILisa, scribed for Ann Hand MD. on 08/19/19 at 0509. Scribe Documentation Reviewed: Yes Provider Attestation: The documentation as recorded by the scribeLisa accurately reflects the service I personally performed and the decisions made by me, Ann Hand MD. Status of Scribe Document: Viewed
[2019-08-19 01:45] LABS: INR 0.99 (0.82-1.09)
[2019-08-19 01:46] LABS: Albumin 3.6 g/dL (3.2-5.2); Albumin/Globulin Ratio 1.3 (1-3); BUN/Creatinine Ratio 18.1 (8-20); Calcium 8.7 mg/dL (8.6-10.3); EGFR African American 88.8 (>60); EGFR Non-African American 73.4 (>60); Globulin 2.7 g/dL (2-4); Potassium 3.9 mmol/L (3.5-5.0); Total Bilirubin 0.6 mg/dL (0.2-1.0); Total Protein 6.3 g/dL (6.4-8.9)
[2019-08-19 01:52] LABS: HCG Pregnancy 2.03 mIU/mL
[2019-08-19 02:30] LABS: Urine Appearance Cloudy; Urine Bacteria Absent (Absent); Urine Bilirubin Negative (Negative); Urine Blood 3+ (Negative); Urine Color Yellow; Urine Glucose 3+(>=500 mg/dL) (Negative); Urine Ketones Negative (Negative); Urine Nitrite Negative (Negative); Urine Protein 2+(100 mg/dL) (Negative); Urine Red Blood Cell 3+(>10/hpf) (Absent); Urine Specific Gravity 1.017 (1.010-1.030); Urine Squamous Epithelial Cell Present (Absent); Urine Urobilinogen Negative (Negative); Urine White Blood Cell 3+(>20/hpf) (Absent)
[2019-08-19] MEDS ORDERED: fentaNYL* 50 MCG/ML 2 ML VIAL (100 MCG VIAL) IV SLOW PU ONE (03:32)
[2019-08-19] MEDS ORDERED: Cyclobenzaprine TAB* 10 MG PO PRN (03:46)
[2019-08-19 04:33] VITALS: BP 121/69
[2019-08-19] MEDS ORDERED: Levothyroxine TAB* 25 MCG TAB PO SCH (06:00)
[2019-08-19] MEDS ORDERED: INSULIN GLARGINE HUM REC ANLOG 30 UNIT SUBCUT SCH ×2 (09:00→21:00)
[2019-08-19] MEDS ORDERED: NON FORMULARY MED* (Multivitamin [Multivitamins] 1 CAP) PO SCH (09:00)
[2019-08-19] MEDS ORDERED: Atorvastatin* 80 MG TAB PO SCH (09:00)
[2019-08-19] MEDS ORDERED: Aspirin 81 mg CHEW TAB* 81 MG TAB.CHEW PO SCH (09:00)
[2019-08-19] MEDS ORDERED: TRANEXAMIC ACID 1300 MG PO SCH (09:00)
[2019-08-19] MEDS ORDERED: Losartan/HCTZ 100/25 (NF) TAB PO SCH (09:00)
[2019-08-19] MEDS ORDERED: glipiZIDE TAB* 5 MG PO SCH (09:00)
[2019-08-19] MEDS ORDERED: Norethindrone (NF) 0.35 MG TAB PO SCH (09:00)
[2019-08-19] MEDS ORDERED: INSULIN LISPRO 35 UNIT SUBCUT SCH (09:00)
== END 2019-08-19 04:30 | disposition home or self-care (01) ==
LOC: ED 23:54
DX: N93.9 Abnormal uterine and vaginal bleeding, unspecified (principal); R42 Dizziness and giddiness; R55 Syncope and collapse; R11.0 Nausea; E11.9 Type 2 diabetes mellitus without complications; Z79.4 Long term (current) use of insulin; E03.9 Hypothyroidism, unspecified; E78.00 Pure hypercholesterolemia, unspecified; I10 Essential (primary) hypertension
CPT/HCPCS: 36415; 80053; 81003; 81015; 83605; 84702; 85025; 85610; 87077; 87086; 96361; 96374; 96375; 99284; J1885; J3010

== ENCOUNTER 2019-08-28 02:47 | Emergency (ER) | payer MEDICARE, OTHER ==
--- OUTSIDE RECORDS SUMMARY | 2019-08-28 02:58 | XMS REPORT | Continuity of Care Document ---
:1970 External Reference #:[id number] Author Name Fish Kumar JR, DO Address [address], [place] [address] Care Team Providers Name Role Phone Maxx Tripathi Care Team Information Assistant Professor Of Communication [phone] Problems Description No Information Available Social History Type Date Description Comments Sex Unknown Tobacco Use Start: Unknown Never Smoked Cigarettes ETOH Use Denies alcohol use Recreational Drug Use Denies Drug Use Tobacco Use Start: Unknown Patient has never smoked Smoking Status Reviewed: 08/20/19 Patient has never smoked Seat Belt/Car Seat Always uses seat belt Allergies, Adverse Reactions, Alerts Active Allergies Reaction Severity Comments Date Hydrocodone 08/07/2015 Rubella Vaccine 08/07/2015 Tradjenta 11/29/2016 Medications Active Medications SIG Qnty Indications Ordering Date Provider Tranexamic Acid Take two tablets 30tabs Fish Kumar JR, 08/20/2019 650mg three times a DO Tablets day for 5 days with menses. Norethindrone Acetate Take 1 Tablet By 60tabs Sheba Rae, 11/30/2018 5mg Mouth Every Day MD Tablets Proair HFA 2 puffs qd Unknown Multi Vitamin Daily 1 po qd Unknown Atorvastatin Calcium 1 po qd Unknown 80mg Losartan Potassium 1 po qd Unknown 100mg Levothyroxine Sodium 1 po qd Unknown 25mcg Basaglar Kwikpen 50 am, 50pm 30units Unknown 100Unit/ML Solution Pen-Inject Glipizide 1 po bid Unknown 10mg Tablets Novolog 6 units with Unknown 100Unit/ML dinner subq Solution Medications Administered in Office Medication SIG Qnty Indications Ordering Provider Date PT SCRN Tbco Id as Non User Sheba Rae MD 12/05/2018 Injection PT SCRN Tbco Id as Non User Sheba Rae MD 03/28/2018 Injection Immunizations Description No Information Available Vital Signs Date Vital Result Comment 08/20/2019 1:19pm BP Systolic 142 mmHg BP Diastolic 78 mmHg Height 62 inches 5'2" Weight 240.00 lb BMI (Body Mass Index) 43.9 kg/m2 Last Menstrual Period [id number] 2 Parity 2 01/03/2019 2:03pm BP Systolic 116 mmHg BP Diastolic 76 mmHg Height 62 inches 5'2" Weight 242.00 lb BMI (Body Mass Index) 44.3 kg/m2 2 Parity 2 Results Test Acquired Date Facility Test Result H/L Range Note Laboratory test 08/20/2019 [facility] Surgical <pending> [place] [address] Pathology [phone] Laboratory test 08/20/2019 [facility] Cytology <pending> [place] [address] [phone] Laboratory test 08/14/2019 [facility] Point of Care 241 mg/dL High 70-100 1 [place] [address] Glucose [phone] CBC Auto Diff 08/14/2019 [facility] White Blood 11.9 High 3.5- 10.8 [place] [address] Count 10^3/uL [phone] Red Blood Count 4.05 10^6/uL Normal 3.70-4.87 Hemoglobin 12.4 g/dL Normal 12.0-16.0 Hematocrit 35 % Normal 35-47 Mean Corpuscular Volume 87 fL Normal 80-97 Mean Corpuscular Hemoglobin 31 pg Normal 27-31 Mean Corpuscular HGB Conc 35 g/dL Normal 31-36 Red Cell Distribution Width 16 % High 10-15 Platelet Count 337 10^3/uL Normal 150-450 Mean Platelet Volume 7.9 fL Normal 7.4-10.4 Abs Neutrophils 8.6 10^3/uL High 1.5-7.7 Abs Lymphocytes 2.5 10^3/uL Normal 1.0-4.8 Abs Monocytes 0.6 10^3/uL Normal 0-0.8 Abs Eosinophils 0.2 10^3/uL Normal 0-0.6 Abs Basophils 0.1 10^3/uL Normal 0-0.2 Abs Nucleated RBC 0.0 10^3/uL Granulocyte % 71.6 % Lymphocyte % 20.6 % Monocyte % 5.2 % Eosinophil % 2.0 % Basophil % 0.6 % Nucleated Red Blood Cells % 0.0 Basic Metabolic 08/14/2019 [facility] Sodium 132 mmol/L Low 135-145 [place] [address] [phone] Potassium 4.1 mmol/L Normal 3.5-5.0 Chloride 99 mmol/L Low 101-111 Co2 Carbon Dioxide 22 mmol/L Normal 22-32 Anion Gap 11 mmol/L Normal 2-11 Blood Urea Nitrogen 26 mg/dL High 6-24 Creatinine 1.07 mg/dL High 0.51-0.95 BUN/Creatinine Ratio 24.3 High 8-20 Calcium 9.1 mg/dL Normal 8.6-10.3 Egfr Non- 54.7 >60 Egfr 66.2 >60 2 Glucose 506 mg/dL Critical high 70-100 3 Laboratory test 08/14/2019 [facility] HCG 2.60 mIU/mL 4 [place] [address] [phone] Type And Screen 08/14/2019 [facility] [place] [address] Type [phone] Antibody Screen NEGATIVE 1 Programming Instructor: [id number] 2 Because ethnic data is not always readily available, this report includes an eGFR for both -Americans and non- Americans. The National Kidney Disease Education Program (NKDEP) does not endorse the use of the MDRD equation for patients that are not between the ages of 18 and 70, are , have extremes of body size, muscle mass, or nutritional status, or are non- or non-. According to the National Kidney Foundation, irrespective of diagnosis, the stage of the disease is based on the level of kidney function: Stage Description GFR(mL/min/1.73 m(2)) 1 Kidney damage with normal or decreased GFR 90 2 Kidney damage with mild decrease in GFR 60-89 3 Moderate decrease in GFR 30-59 4 Severe decrease in GFR 15-29 5 Kidney failure <15 (or dialysis) 3 Critical Result GLU:506 Called to [place] [address] at: 15:21:20 by:[id number] Read back by:[place] [id number] 4 <5.0 Negative 5.0 - 25.0 Indeterminate (Repeat testing recommended after 72 hours) >25.0 Positive Perimenopausal women can display HCG levels of up to 20 mIU/mL Procedures Date Code Description Status 08/20/2019 50147 Biopsy Endometrial W/O Cervical Dilation Completed 10/23/2017 [id number] Mammogram Completed Medical Devices Description No Information Available Encounters Description No Information Available Assessments Date Code Description Provider 08/20/2019 N93.9 Abnormal uterine and vaginal bleeding, Fish Kumar JR, DO unspecified Plan of Treatment 08/20/2019 - Fish Kumar JR, DON93.9 Abnormal uterine and vaginal bleeding, unspecifiedComments:Pt is at high risk for endometrial cancer.Has had worsening abnormal uterine bleeding.Has had multiple EMB's in the past and hysteroscopy with D&C has been recommended, but pt has not followed through with obtaining medical clearance or following up appropriately. Pt is a very poorly controlled diabetic. EMB performed without complication in office today. Pap smear collected.Will follow up results and advise patient, likely referral to Gynecology Oncology.Refill for Tranexamic Acid provided, to be taken TID x 5 days if heavy bleeding begins again. Continue previously prescribed norethindrone. Functional Status Description No Information Available Mental Status Description No Information Available Referrals Description No Information Available
[2019-08-28] MEDS ORDERED: NS 0.9% 1000 ML** 1,000 ML IV ONE (03:11)
[2019-08-28 03:26] LABS: ABS Basophils 0.1 10^3/ul (0-0.2); ABS Eosinophils 0.3 10^3/ul (0-0.6); ABS Lymphocytes 3.2 10^3/ul (1.0-4.8); ABS Monocytes 0.7 10^3/ul (0-0.8); ABS Neutrophils 7.5 10^3/ul (1.5-7.7); Eosinophil % 2.8 %; Hematocrit 30 % (35-47); Hemoglobin 10.2 g/dL (12.0-16.0); Lymphocyte % 26.6 %; Mean Corpuscular HGB Conc 34 g/dL (31-36); Mean Corpuscular Hemoglobin 30 pg (27-31); Mean Corpuscular Volume 89 fL (80-97); Mean Platelet Volume 7.4 fL (7.4-10.4); Platelet Count 420 10^3/uL (150-450); Red Blood Count 3.38 10^6 /uL (3.70-4.87); Red Cell Distribution Width 16 % (10-15); White Blood Count 11.8 10^3/uL (3.5-10.8)
[2019-08-28] MEDS ORDERED: Tranexamic Acid 1,000 MG/10 ML 1,000 MG in NS 0.9% 50 ML* 50 ML IV ONE (03:38)
[2019-08-28 03:41] LABS: Albumin 3.8 g/dL (3.2-5.2); Albumin/Globulin Ratio 1.3 (1-3); BUN/Creatinine Ratio 20.7 (8-20); Calcium 9.4 mg/dL (8.6-10.3); EGFR African American 63.5 (>60); EGFR Non-African American 52.5 (>60); Potassium 4.2 mmol/L (3.5-5.0); Total Bilirubin 0.6 mg/dL (0.2-1.0); Total Protein 6.8 g/dL (6.4-8.9)
--- NOTE | 2019-08-28 03:42 | ED ---
GI/ HPI - HPI Summary HPI Summary: The patient is a 48 y/o F presenting to [facility] with a chief complaint of sudden onset vaginal bleeding this morning at 0100. She reports that shes been suffering from similar episodes of this over the last two weeks, but the bleeding stopped five days ago until it returned this morning. She was seen in the ED on 08/14/19, 08/16/19, and 08/18/19 with vaginal bleeding. She followed up with Dr. Kumar from [facility], who performed a Pap smear and an endometrial biopsy last week without significant findings, although he was concerned for endometrial cancer at the time. She was given a prescription for TXA, which she has previously been given along with fluids, but she has not used it with the onset of symptoms today. She called the [facility] office this morning, and she was advised to come to the ED for blood work for concern of blood loss since she does not take iron supplements. She additionally c/o umbilical and lower abdominal pain, but she denies any fever, CP, or SOB. Currently, her pain is rated 8/10 in severity. She notes that her BG was 338 when she checked this morning, and the elevation has been occurring more frequently with the bleeding. She has not undergone a hysterectomy yet secondary to the elevated BG. She is supposed to be referred for further treatment with possible embolization but has not heard back yet. PMHx: DM, thyroid disease, anemia, HLD , HTN, asthma, COPD, anxiety, depression, bipolar disorder, cholecystectomy. Nonsmoker, rare EtOH, no substance use. Medications reviewed. Allergies noted. - History of Current Complaint Chief Complaint: EDOBProblems Time Seen by Provider: 08/28/19 03:07 Stated Complaint: ABNORMAL BLEEDING PER PT Hx Obtained From: Patient Onset/Duration: Started Hours Ago - 0100 this morning, Still Present Timing: Lasting Hours Severity: Severe Current Severity: Severe Vaginal Bleeding Description: Bright Red Pain Intensity: 8 Location of Pain: Umbilical, Other - lower abd Pain Characteristics: Sharp Associated Signs and Symptoms: Positive: Abdominal Pain. Negative: Fever, Chest Pain, Other: - SOB - Additional Pertinent History Primary Care Physician: [id number] - Allergy/Home Medications Allergies/Adverse Reactions: Allergies Allergy/AdvReac Type Severity Reaction Status Date / Time hydrocodone Allergy Hives Verified 08/19/19 00:01 linagliptin [From Tradjenta] Allergy Rash Verified 08/19/19 00:01 rubella virus live vaccine Allergy Hives/Diff. Verified 08/19/19 00:01 Breathing/I tching Home Medications: Home Medications Hydrochlorothiazide TAB* [Hydrodiuril TAB*] 25 mg PO DAILY 08/28/19 [History Confirmed 08/28/19] Insulin Glargine,Hum.rec.anlog [Basaglar Kwikpen U-100] 30 units SUBCUT QAM 04/10 [History Confirmed 08/28/19] Insulin Glargine,Hum.rec.anlog [Basaglar Kwikpen U-100] 60 units SUBCUT QPM 04/10 [History Confirmed 08/28/19] Losartan Potassium 100 mg PO DAILY 08/28/19 [History Confirmed 08/28/19] Norethindrone Acetate 5 mg PO DAILY 08/28/19 [History Confirmed 08/28/19] Vitamin D3 50,000 units PO WEEKLY 08/28/19 [History Confirmed 08/28/19] glipiZIDE [Glipizide ER] 10 mg PO BID 08/28/19 [History Confirmed 08/28/19] PMH/Surg Hx/FS Hx/Imm Hx Endocrine/Hematology History: Reports: Hx Diabetes, Hx Thyroid Disease - underactive thyroid, Hx Anemia, Hx Unexplained Bleeding - irregular menstral bleeding from fibroids on uterine wall Cardiovascular History: Reports: Hx Angina, Hx Hypercholesterolemia, Hx Hypertension, Hx Syncope Respiratory History: Reports: Hx Asthma - USUALLY R/T TO [facility], Hx Chronic Bronchitis, Hx Chronic Obstructive Pulmonary Disease (COPD) - per pt., Hx Pneumonia, Hx Seasonal Allergies, Hx Sleep Apnea - believe so GI History: Reports: Hx Gall Bladder Disease - stones in duct, removed 2004, Hx Irritable Bowel Musculoskeletal History: Reports: Hx Arthritis, Hx Osteoporosis - fluid drained from left knee 2006 (?), Other Musculoskeletal History - left ankle ligament tear 2008 Sensory History: Reports: Hx Cataracts, Hx Contacts or Glasses - reading Denies: Hx Hearing Aid Opthamlomology History: Reports: Hx Cataracts, Hx Contacts or Glasses - reading Neurological History: Denies: Hx Headaches, Hx Migraine, Hx Seizures Psychiatric History: Reports: Hx Anxiety, Hx Depression, Hx Inpatient Treatment , Hx Community Mental Health Tx, Hx Bipolar Disorder, Hx Suicide Attempt - once Denies: Hx Eating Disorder, Hx Panic Disorder, Hx Post Traumatic Stress Disorder, Hx Schizophrenia, Hx of Violent Episodes Against Others, Hx Substance Abuse - Surgical History Surgical History: Yes Surgery Procedure, Year, and Place: cholecystectomy, tubes in ears, D+C x2, C- section x2 Hx Anesthesia Reactions: No Infectious Disease History: No Infectious Disease History: Denies: Traveled Outside the [place] in Last 30 Days - Family History Known Family History: Positive: Cardiac Disease - Social History Alcohol Use: Rare Hx Substance Use: No Substance Use Type: Reports: None Hx Tobacco Use: No Smoking Status (MU): Never Smoked Tobacco Amount Used/How Often: only tried a few times Length of Time of Smoking/Using Tobacco: sporadic Have You Smoked in the Last Year: No - PER PT. NEVER TRULY A SMOKER JUST TRIED IT NOW AND THEN Review of Systems - ROS Summary Review of Systems Summary: Home Medications Medication Instructions Recorded Confirmed Type Aspirin 81 mg CHEW TAB* 81 mg PO QAM 02/14/15 08/19/19 History Atorvastatin* [Lipitor 80 MG*] 80 mg PO QAM 02/14/15 08/19/19 History Multivitamin [Multivitamins] 1 cap PO QAM 02/14/15 08/19/19 History Levothyroxine TAB* [Synthroid 25 25 mcg PO 0800 09/09/16 08/19/19 History MCG TAB*] glipiZIDE TAB* [Glucotrol TAB*] 10 mg PO BID 09/09/16 08/19/19 History Insulin Lispro [Admelog Solostar] 35 units SUBCUT TID 11/30/18 08/19/19 History Cyclobenzaprine TAB* [Flexeril 10 10 mg PO TID PRN 12/30/18 08/19/19 History MG TAB*] Losartan/Hydrochlorothiazide 1 tab PO DAILY 12/30/18 08/19/19 History [Losartan-Hctz 100-25 mg Tab] Norethindrone (NF) [Viktoriya (NF)] 1 dose PO BID #14 tab 01/02/19 08/19/19 Rx Tranexamic Acid [Lysteda] 1,300 mg PO TID #30 tablet 08/16/19 08/19/19 Rx Insulin Glargine,Hum.rec.anlog 30 units SUBCUT BEDTIME 08/19/19 08/19/19 History [Basaglar Kwikpen U-100] Insulin Glargine,Hum.rec.anlog 30 units SUBCUT QAM 08/19/19 08/19/19 History [Basaglar Kwikpen U-100] Negative: Fever Negative: Chest Pain Negative: Shortness Of Breath Positive: Abdominal Pain - umbilical and low abd Positive: other - vaginal bleeding with clotting All Other Systems Reviewed And Are Negative: Yes Physical Exam - Summary Physical Exam Summary: General: Well-developed, Morbidly obese female. No acute distress. HEENT: Normocephalic, Atraumatic. Eyes: Conjuctiva normal, PERRL. Ears: TMs within normal limits. Nares: (-) discharge, (-) erythema. Oropharynx: Clear, mucous membranes moist, (-) exudates. Neck: Soft, FROM, (-) lymphadenopathy, (-) thyromegaly, (-) JVD. Cardiovascular: Normal sinus rhythm, (-) murmur. Lungs: Clear to auscultation bilaterally (-) wheezes, (-) rales, (-) rhonchi. Abdomen: Soft, mildly diffuse lower abdominal tenderness, non-distended, (-) organomegaly, normal bowel sounds. Back: (-) CVA tenderness Extremities: No edema. Skin: Warm, dry, (-) rash. Neuro: Alert and oriented x3, no focal deficits. Psychiatric: Mood normal, affect normal. Triage Information Reviewed: Yes Vital Signs On Initial Exam: Initial Vitals Temp Pulse Resp BP Pulse Ox 98.9 F 126 20 132/95 97 08/28/19 02:49 08/28/19 02:49 08/28/19 02:49 08/28/19 02:49 08/28/19 02:49 Vital Signs Reviewed: Yes Procedures - Sedation Patient Received Moderate/Deep Sedation with Procedure: No Diagnostics - Vital Signs Vital Signs Temp Pulse Resp BP Pulse Ox 08/28/19 02:49 98.9 F 126 20 132/95 97 - Laboratory Lab Results: Lab Results 08/28/19 Range/Units 03:18 WBC 11.8 H (3.5-10.8) 10^3/uL RBC 3.38 L (3.70-4.87) 10^6 /uL Hgb 10.2 L (12.0-16.0) g/dL Hct 30 L (35-47) % MCV 89 (80-97) fL MCH 30 (27-31) pg MCHC 34 (31-36) g/dL RDW 16 H (10-15) % Plt Count 420 (150-450) 10^3/uL MPV 7.4 (7.4-10.4) fL Neut % (Auto) 63.6 % Lymph % (Auto) 26.6 % Marin % (Auto) 6.0 % Eos % (Auto) 2.8 % Baso % (Auto) 1.0 % Absolute Neuts (auto) 7.5 (1.5-7.7) 10^3/ul Absolute Lymphs (auto) 3.2 (1.0-4.8) 10^3/ul Absolute Monos (auto) 0.7 (0-0.8) 10^3/ul Absolute Eos (auto) 0.3 (0-0.6) 10^3/ul Absolute Basos (auto) 0.1 (0-0.2) 10^3/ul Absolute Nucleated RBC 0.0 10^3/ul Nucleated RBC % 0.0 Result Diagrams: 08/28/19 03:18 08/28/19 03:18 Lab Statement: Any lab studies that have been ordered have been reviewed, and results considered in the medical decision making process. Re-Evaluation - Re-Evaluation First Eval Re-Evaluation Time: 05:30 Change: Improved Comment: I have discussed results with the patient and bleeding has somewhat improved. Discussed symptoms that warrant immediate return to ED. GIGU Course/Dx - Course Course Of Treatment: 48-year-old female with dysfunctional uterine bleeding. Patient has been here multiple times in the last 2 weeks. Is also following with [facility]. Has had ultrasound done. Has had endometrial biopsy and Pap smear done last week. Results are normal. Patient states her bleeding had slowed down significantly over the last 4-5 days. However this morning when she woke up to go the bathroom she had significant vaginal bleeding with clots. Workup demonstrates a stable and even improved hemoglobin. She is hemodynamically stable. Advised her to drink plenty of fluids. Take TX at home as directed. Follow-up with [facility]. Follow-up sooner for any worsening symptoms. - Diagnoses Provider Diagnoses: Dysfunctional uterine bleeding Discharge ED - Sign-Out/Discharge Documenting (check all that apply): Patient Departure - Patient will be discharged home. - Discharge Plan Condition: Stable Disposition: HOME Patient Education Materials: Dysfunctional Uterine Bleeding (ED) Referrals: Maxx Tripathi MD [Primary Care Provider] - 3 Days Michael Walden MD [Medical Doctor] - 1 Day Additional Instructions: Take the TXA you have for your symptoms. Please follow up with your [facility] in one to two days and your primary care physician within three days. Please return to ED for any new or worsening symptoms. - Billing Disposition and Condition Condition: STABLE Disposition: Home - Attestation Statements Document Initiated by Saniya: Yes Documenting Scribe: Jayla Barragan Provider For Whom Saniya is Documenting (Include Credential): Dr. Ann Hand MD Scribe Attestation: Jayla Hernandez scribed for Dr. Ann Hand MD on 08/28/19 at 0544. Scribe Documentation Reviewed: Yes Provider Attestation: The documentation as recorded by the Jayla corea accurately reflects the service I personally performed and the decisions made by me, Dr. Ann Hand MD Status of Scribe Document: Viewed
[2019-08-28 03:44] LABS: Urine Appearance Turbid; Urine Bacteria Absent (Absent); Urine Bilirubin Negative (Negative); Urine Blood 3+ (Negative); Urine Glucose 2+(150 mg/dL) (Negative); Urine Ketones Trace (Negative); Urine Nitrite Negative (Negative); Urine Protein 3+(>=500 mg/dL) (Negative); Urine Red Blood Cell 3+(>10/hpf) (Absent); Urine Urobilinogen Negative (Negative); Urine White Blood Cell 3+(>20/hpf) (Absent)
[2019-08-28 03:48] LABS: HCG Pregnancy 1.85 mIU/mL
[2019-08-28 03:59] LABS: Urine Color Red
[2019-08-28 05:50] VITALS: BP 137/82
== END 2019-08-28 05:49 | disposition home or self-care (01) ==
LOC: ED 02:47
DX: N93.8 Other specified abnormal uterine and vaginal bleeding (principal); R10.33 Periumbilical pain; R10.30 Lower abdominal pain, unspecified; E11.9 Type 2 diabetes mellitus without complications; Z79.4 Long term (current) use of insulin; Z79.84 Long term (current) use of oral hypoglycemic drugs; I10 Essential (primary) hypertension; Z90.49 Acquired absence of other specified parts of digestive tract; Z88.5 Allergy status to narcotic agent; Z88.7 Allergy status to serum and vaccine
CPT/HCPCS: 36415; 80053; 81003; 81015; 83605; 84702; 85025; 87086; 96361; 96365; 99283

== ENCOUNTER 2019-10-29 15:13 | Emergency (ER) | payer MEDICARE, MEDICAID ==
--- OUTSIDE RECORDS SUMMARY | 2019-10-29 15:24 | XMS REPORT | Continuity of Care Document ---
:1970 External Reference #:[id number] Author Name Black Sullivan M.D. 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 Onset: 09/18/2019 Anemia Black Sullivan M.D. Onset: 09/18/2019 Menorrhagia Black Sullivan M.D. Onset: 09/18/2019 Social History Type Date Description Comments Sex Unknown ETOH Use Rarely consumes alcohol Tobacco Use Start: Unknown Patient has never smoked Recreational Drug Use Denies Drug Use Smoking Status Reviewed: 09/18/19 Patient has never smoked Exercise Type/Frequency Does not exercise Allergies, Adverse Reactions, Alerts Active Allergies Reaction Severity Comments Date Hydrocodone vomiting/diarrhea 09/18/2019 Rubella Virus Vaccine Live ([facility] Ra hives 09/18/2019 27-3 Strain) Luis A-L-Tabs pancreatitis 09/18/2019 Medications Active Medications SIG Qnty Indications Ordering Date Provider Vitamin D3 50,000 Units Take one capsule Unknown 09/17/2019 by mouth every 7 days as directed Losartan Potassium 1 by mouth every Unknown 09/17/2019 100mg Tablets day Levothyroxine Sodium 1 by mouth every Unknown 09/17/2019 25mcg day Tablets Tranexamic Acid 2 tablets by mouth Unknown 09/17/2019 650mg Tablets three times a day up to 5 days as needed during heavy menses Hydrochlorothiazide 1 by mouth every Unknown 09/17/2019 25mg Tablets day Novolog Flexpen Three times Unknown 09/17/2019 100Unit/ML daily-on sliding Solution Pen-Inject scale Basaglar Kwikpen 30 units in Am, 60 Unknown 09/17/2019 100Unit/ML units in PM Solution Pen-Inject Norethindrone Acetate 1 by mouth every Unknown 09/17/2019 5mg Tablets day Atorvastatin Calcium 1 by mouth every Unknown 09/17/2019 80mg Tablets day Glipizide ER 2 tablets by mouth Unknown 09/17/2019 10mg Tablets ER 24HR every day Women's Daily Multivitamin Take one tablet by Unknown 09/17/2019 mouth daily Flexeril 10 MG 1/2-1 tab hs prn Unknown 09/17/2019 Stool Softener prn for Unknown 09/17/2019 constipation Immunizations Description No Information Available Vital Signs Date Vital Result Comment 09/18/2019 11:48am Height 60 inches 5'0" Weight 232.38 lb w/ shoes Heart Rate 116 /min L. radial, regular BP Systolic Sitting 124 mmHg LA, reg cuff BP Diastolic Sitting 78 mmHg LA, reg cuff BMI (Body Mass Index) 45.4 kg/m2 Results Description No Information Available Procedures Description No Information Available Medical Devices Description No Information Available Encounters Type Date Location Provider Dx Diagnosis Office Visit 09/18/2019 [facility] Black Sullivan, N92.4 Excessive bleeding in 11:30a Medicine Joel Araujo the premenopausal period R10.2 Pelvic and perineal pain D64.9 Anemia, unspecified Assessments Date Code Description Provider 09/18/2019 N92.4 Excessive bleeding in the premenopausal period Black Sullivan M.D. 09/18/2019 R10.2 Pelvic and perineal pain Black Sullivan M.D. 09/18/2019 D64.9 Anemia, unspecified Black Sullivan M.D. Plan of Treatment 09/18/2019 - Black Sullivan M.D.N92.4 Excessive bleeding in the premenopausal periodComments:The following was discussed with Ree and her of the time of consultation:The patient has been experiencing severe menstrual bleeding which has become severe enough that she has had syncopal episodes requiring ER visits, hospitalization and blood transfusion.It is difficult to distinguish on ultrasound whether she has uterine fibroids, adenomyosis or both. It is worthwhile to distinguish thetwo as there is slight difference in embolization technique, specifically the embolic particles usedfor each disease entity.MRI of the pelvis can distinguish uterine fibroids from adenomyosis and is indicated in this situation. The patient will also require endometrial biopsy if she has not already had one.R10.2 Pelvic and perineal painD64.9 Anemia , unspecified Functional Status Description No Information Available Mental Status Description No Information Available Referrals Description No Information Available
[2019-10-29] MEDS ORDERED: NS 0.9% 1000 ML** 1,000 ML IV ONE (16:01)
[2019-10-29] MEDS ORDERED: Ondansetron ODT TAB* 4 MG PO ONE (16:01)
[2019-10-29] MEDS ORDERED: Meclizine TAB* 12.5 MG PO ONE (16:01)
--- NOTE | 2019-10-29 16:01 | ED ---
Dizziness - HPI Summary HPI Summary: This pt is a 49 y/o female presenting to [facility] c/o dizziness and lightheadedness since 3 days ago. Pt reports 3 days ago she was at a gender reveal where she passed clots and fibroids while in the bathroom. She states hx of irregular periods for which she has seen [facility] and has an embolization scheduled with Dr. Sullivan. Pt notes today she was getting ready to go grocery shopping and cleaning drawers at home when she stood up and "the room began to spin." Pt sat down and took her glucose. Pt has hx of DM and this morning her blood sugar was 377 and at around 1400 when she sat down her blood sugar was 273. She then was laundry prior to going out and felt really dizzy. She describes dizziness as room spinning. She endorses lightheadedness, nausea, a slight headache. Denies fever, chest pain, SOB, palpitations. - History Of Current Complaint Chief Complaint: EDDizziness Stated Complaint: DIZZY PER PT Time Seen by Provider: 10/29/19 15:57 Hx Obtained From: Patient Onset/Duration: Still Present Timing: Days Severity Currently: Moderate Character: Room Spinning Aggravating Factor(s): Nothing Alleviating Factor(s): Nothing Associated Signs And Symptoms: Positive: Nausea. Negative: Chest Pain, SOB, Palpitations - Allergies/Home Medications Allergies/Adverse Reactions: Allergies Allergy/AdvReac Type Severity Reaction Status Date / Time hydrocodone Allergy Hives Verified 10/29/19 15:19 linagliptin [From Tradjenta] Allergy Rash Verified 10/29/19 15:19 rubella virus live vaccine Allergy Hives/Diff. Verified 10/29/19 15:19 Breathing/I tching Home Medications: Home Medications Cholecalciferol CAP/TAB(NF) [Vitamin D3 CAP/TAB (NF)] 50,000 unit PO WEEKLY 05/11 [History Confirmed 10/29/19] Diclofenac Sodium EC TAB* [Voltaren EC TAB*] 50 mg PO TID PRN 10/29/19 [History Confirmed 10/29/19] Insulin ASPART (NF) [Novolog (NF)] 35 - 100 unit INJ DAILY 10/29/19 [History Confirmed 10/29/19] Losartan TAB* [Cozaar TAB*] 100 mg PO DAILY 10/29/19 [History Confirmed 10/29/19 ] Multivitamins/Minerals TAB* [Theragran/minerals TAB*] 1 tab PO DAILY 10/29/19 [ History Confirmed 10/29/19] Norethindrone Acetate [Norethindrone AC (Lupaneta)] 5 mg PO DAILY 10/29/19 [ History Confirmed 10/29/19] glipiZIDE [Glipizide ER] 20 mg PO DAILY 10/29/19 [History Confirmed 10/29/19] traMADol TAB* [Ultram*] 50 mg PO Q6HR PRN 10/29/19 [History Confirmed 10/29/19] PMH/Surg Hx/FS Hx/Imm Hx Endocrine/Hematology History: Reports: Hx Diabetes, Hx Thyroid Disease - underactive thyroid, Hx Anemia, Hx Unexplained Bleeding - irregular menstral bleeding from fibroids on uterine wall Cardiovascular History: Reports: Hx Angina, Hx Hypercholesterolemia, Hx Hypertension, Hx Syncope Respiratory History: Reports: Hx Asthma - USUALLY R/T TO [facility], Hx Chronic Bronchitis, Hx Chronic Obstructive Pulmonary Disease (COPD) - per pt., Hx Pneumonia, Hx Seasonal Allergies, Hx Sleep Apnea - believe so GI History: Reports: Hx Gall Bladder Disease - stones in duct, removed 2004, Hx Irritable Bowel Musculoskeletal History: Reports: Hx Arthritis, Hx Osteoporosis - fluid drained from left knee 2006 (?), Other Musculoskeletal History - left ankle ligament tear 2008 Sensory History: Reports: Hx Cataracts, Hx Contacts or Glasses - reading Denies: Hx Hearing Aid Opthamlomology History: Reports: Hx Cataracts, Hx Contacts or Glasses - reading Neurological History: Denies: Hx Headaches, Hx Migraine, Hx Seizures Psychiatric History: Reports: Hx Anxiety, Hx Depression, Hx Inpatient Treatment , Hx Community Mental Health Tx, Hx Bipolar Disorder, Hx Suicide Attempt - once Denies: Hx Eating Disorder, Hx Panic Disorder, Hx Post Traumatic Stress Disorder, Hx Schizophrenia, Hx of Violent Episodes Against Others, Hx Substance Abuse - Surgical History Surgical History: Yes Surgery Procedure, Year, and Place: cholecystectomy, tubes in ears, D+C x2, C- section x2 Hx Anesthesia Reactions: No Infectious Disease History: No Infectious Disease History: Denies: Traveled Outside the [place] in Last 30 Days - Family History Known Family History: Positive: Cardiac Disease - Social History Alcohol Use: Rare Hx Substance Use: No Substance Use Type: Reports: None Hx Tobacco Use: No Smoking Status (MU): Never Smoked Tobacco Amount Used/How Often: only tried a few times Length of Time of Smoking/Using Tobacco: sporadic Have You Smoked in the Last Year: No - PER PT. NEVER TRULY A SMOKER JUST TRIED IT NOW AND THEN Review of Systems Negative: Fever Negative: Palpitations, Chest Pain Negative: Shortness Of Breath Positive: Nausea Neurological: Other - POSITIVE: dizziness, lightheadedness All Other Systems Reviewed And Are Negative: Yes Physical Exam - Summary Physical Exam Summary: VITAL SIGNS: Reviewed. GENERAL: Patient is a well-developed and nourished female who is lying comfortable in the stretcher. Patient is not in any acute respiratory distress. HEAD AND FACE: No signs of trauma. No ecchymosis, hematomas or skull depressions. No sinus tenderness. EYES: PERRLA, EOMI x 2, No injected conjunctiva. No nystagmus. EARS: Hearing grossly intact. Ear canals and tympanic membranes are within normal limits. MOUTH: Oropharynx within normal limits. NECK: Supple, trachea is midline, no adenopathy, no JVD, no carotid bruit, no c- spine tenderness, neck with full ROM. CHEST: Symmetric, no tenderness at palpation. LUNGS: Clear to auscultation bilaterally. No wheezing or crackles. CVS: Regular rate and rhythm, S1 and S2 present, no murmurs or gallops appreciated. ABDOMEN: Soft, non-tender. No signs of distention. No rebound, no guarding, and no masses palpated. Bowel sounds are normal. EXTREMITIES: FROM in all major joints, no edema, no cyanosis or clubbing. NEURO: Alert and oriented x 3. No acute neurological deficits. No nystagmus. Speech is normal and follows commands. SKIN: Dry and warm. GCS: 15 Triage Information Reviewed: Yes Vital Signs On Initial Exam: Initial Vitals Temp Pulse Resp BP Pulse Ox 97.7 F 115 16 117/70 98 10/29/19 15:16 10/29/19 15:16 10/29/19 15:16 10/29/19 15:16 10/29/19 15:16 Vital Signs Reviewed: Yes Procedures - Sedation Patient Received Moderate/Deep Sedation with Procedure: No Diagnostics - Vital Signs Vital Signs Temp Pulse Resp BP Pulse Ox 10/29/19 15:16 97.7 F 115 16 117/70 98 - Laboratory Result Diagrams: 10/29/19 16:41 10/29/19 16:41 Lab Statement: Any lab studies that have been ordered have been reviewed, and results considered in the medical decision making process. - Radiology Chest XR Radiology Interpretation Completed By: Radiologist Summary of Radiographic Findings: IMPRESSION: No active cardiopulmonary disease. Dr. Quach has reviewed this report. - CT Brain CT CT Interpretation Completed By: Radiologist Summary of CT Findings: IMPRESSION: No acute intracranial pathology. Dr. Quach has reviewed this report. - EKG 16:05 Cardiac Rate: Tachycardia - at 112 bpm EKG Rhythm: Sinus Tachycardia Summary of EKG Findings: EKG at 1605 shows sinus tachycardia at [address] elevations. Re-Evaluation - Re-Evaluation First Eval Re-Evaluation Time: 17:55 Comment: Patient is feeling better. She is hungry and is eating without nausea and vomiting. Her vertigo has resolved. Patient is ambulating to the bathroom without any difficulties. Dizzy Course/Dx - Course Assessment/Plan: This pt is a 49 y/o female [facility]/o dizziness and lightheadedness since 3 days ago. Pt reports 3 days ago she was at a gender reveal where she passed clots and fibroids while in the bathroom. She states hx of irregular periods for which she has seen [facility] and has an embolization scheduled with Dr. Sullivna. Pt notes today she was getting ready to go grocery shopping and cleaning drawers at home when she stood up and "the room began to spin." Pt sat down and took her glucose. Pt has hx of DM and this morning her blood sugar was 377 and at around 1400 when she sat down her blood sugar was 273. She then was laundry prior to going out and felt really dizzy. She describes dizziness as room spinning. She endorses lightheadedness, nausea, a slight headache. Denies fever, chest pain, SOB, palpitations. Blood work without any significant abnormality except for slight anemia, sodium 134, chloride 97, BUN is 28 and creatinine 1.94 probably secondary to dehydration. Glucose was 204 and magnesium 1.4. CRP is 43.09. In the ED course the patient was given IV fluids, Zofran for nausea and vomiting, Meclizine for dizziness and magnesium for the hypomagnesemia. After these medications were given the patients symptoms have significantly improved. The patient reports that she is hungry so therefore she is eating and drinking, without any nausea and vomiting. Her dizziness has resolved and the patient was ambulated without any difficulty. The patient doesnt have any ataxia. Therefore the patient will be discharged home with follow-up from her primary care physician. At this point, I discussed all the findings and test results with the patient. Patient was instructed to return to the emergency room immediately if any of the symptoms return or worsen. Plan of care was discussed with the patient and patient understands and agrees. All questions were answered at patient satisfaction. Patient understands and agrees. Neurological exam before discharge: Patient is alert and oriented x 3. No acute neurological deficits. Patient's vital signs are stable. Patient is to follow up with her PCP in the next 2 3 days. They understand and agree. The plan of care was discussed with the patient and patient understands and agrees with the plan of care. All questions were answered at patient satisfaction. There were no further complaints or concerns. - Diagnoses Provider Diagnoses: Vertigo Discharge ED - Sign-Out/Discharge Documenting (check all that apply): Patient Departure - Discharge home - Discharge Plan Condition: Stable Disposition: HOME Prescriptions: Meclizine TAB* [Antivert 12.5 TAB*] 25 mg PO TID PRN #30 tab PRN Reason: Vertigo Patient Education Materials: Vertigo (ED) Referrals: Maxx Tripathi MD [Primary Care Provider] - Additional Instructions: Follow up with your primary care provider in 2-3 days. RETURN TO THE ED FOR ANY WORSENING OR NEW SYMPTOMS. - Billing Disposition and Condition Condition: STABLE Disposition: Home - Attestation Statements Document Initiated by Saniya: Yes Documenting Scribe: Randi Tobar Provider For Whom Saniya is Documenting (Include Credential): David Quach MD Scribe Attestation: Randi Hernandez scribed for David Quach MD on 10/29/19 at 1841. Scribe Documentation Reviewed: Yes Provider Attestation: The documentation as recorded by the Randi corea accurately reflects the service I personally performed and the decisions made by me, David Quach MD Status of Scribe Document: Viewed
[2019-10-29 16:48] LABS: ABS Basophils 0.1 10^3/ul (0-0.2); ABS Eosinophils 0.2 10^3/ul (0-0.6); ABS Monocytes 0.4 10^3/ul (0-0.8); ABS Neutrophils 8.1 10^3/ul (1.5-7.7); Eosinophil % 1.8 %; Hematocrit 30 % (35-47); Hemoglobin 10.7 g/dL (12.0-16.0); Lymphocyte % 18.9 %; Mean Corpuscular HGB Conc 35 g/dL (31-36); Mean Corpuscular Hemoglobin 30 pg (27-31); Mean Corpuscular Volume 85 fL (80-97); Mean Platelet Volume 7.5 fL (7.4-10.4); Nucleated Red Blood Cells % 0.1; Platelet Count 469 10^3/uL (150-450); Red Cell Distribution Width 14 % (10-15); White Blood Count 10.8 10^3/uL (3.5-10.8)
[2019-10-29 17:11] LABS: ALT 14 U/L (7-52); AST 13 U/L (13-39); Albumin 3.9 g/dL (3.2-5.2); Albumin/Globulin Ratio 1.2 (1-3); Alkaline Phosphatase 97 U/L (34-104); Anion Gap 11 mmol/L (2-11); BUN/Creatinine Ratio 14.4 (8-20); Blood Urea Nitrogen 28 mg/dL (6-24); C Reactive Protein 43.09 mg/L (<8.01); CO2 Carbon Dioxide 26 mmol/L (22-32); Calcium 9.5 mg/dL (8.6-10.3); Chloride 97 mmol/L (101-111); Creatine Kinase 50 U/L (10-223); EGFR African American 33.2 (>60); EGFR Non-African American 27.4 (>60); Globulin 3.3 g/dL (2-4); Glucose 204 mg/dL (70-100); Magnesium 1.4 mg/dL (1.9-2.7); Potassium 4.4 mmol/L (3.5-5.0); Sodium 134 mmol/L (135-145); Total Protein 7.2 g/dL (6.4-8.9)
[2019-10-29] MEDS ORDERED: Magnesium Sulfate 1 GM IV* 1 GM/100 ML BAG IV ONE (17:18)
[2019-10-29 17:40] LABS: Alcohol < 10 mg/dL (<10)
[2019-10-29 17:53] LABS: TSH (Thyroid Stimulating Horm) 5.05 mcIU/mL (0.34-5.60)
[2019-10-29 18:31] VITALS: BP 112/79
== END 2019-10-29 18:25 | disposition home or self-care (01) ==
LOC: ED 15:13
DX: R42 Dizziness and giddiness (principal); R11.0 Nausea; E11.9 Type 2 diabetes mellitus without complications; E03.9 Hypothyroidism, unspecified; F41.9 Anxiety disorder, unspecified; Z79.899 Other long term (current) drug therapy; R51 Headache
CPT/HCPCS: 36415; 70450; 71046; 80053; 80320; 82550; 83735; 83880; 84443; 84484; 85025; 86140; 93005; 99283; A9270-GY; G0480; J3475

== ENCOUNTER 2019-12-17 17:51 | Emergency (ER) | payer MEDICARE ==
--- OUTSIDE RECORDS SUMMARY | 2019-12-17 18:05 | XMS REPORT | Summary of Care ---
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 Reason for Visit Reason Comments Follow Up Diabetes Mellitus pt is checking sugars 4x daily Encounter Details Date Type Department Care Team Description 12/16/2019 Office Visit BFS ENDOCRINOLOGY Bharath DM (diabetes mellitus), [address] [facility] Renea MD type 2, uncontrolled [address] [facility] with complications [address] ([facility]) (Primary Dx) [phone] [place] [address] [phone] Allergies Active Allergy Reactions Severity Noted Date Comments Hydrocodone GI Reaction 08/11/2010 Lamotrigine Rash 01/05/2018 Metformin GI Reaction 07/23/2018 Rubella Vaccine Dermatologic Reaction 08/11/2010 Linagliptin Other 11/14/2017 Pancrease documented as of this encounter (statuses as of 12/16/2019) Medications Medication Sig Dispensed Refills Start End Date Status Date Multiple Take 1 Tab by 0 Active Vitamins-Minerals mouth DAILY. (MULTIVITAL PO) aspirin (ECOTRIN) Take 81 mg by 0 Active 81 MG Oral Tab EC mouth DAILY. Blood Glucose by Does not 1 Kit 0 Active Monitoring Suppl apply route. 4 (BLOOD GLUCOSE Insurance METER) Does not preference, apply Kit 250.00 tests 4 times daily, insulin dep Lancets Does not by Does not 150 Each 5 Active apply Misc apply route FOUR 4 TIMES DAILY. Insurance Preference, insulin dep, 250.00 atorvastatin Take 80 mg by 0 Active (LIPITOR) 80 MG mouth DAILY. Oral Tab levothyroxine Take 25 mcg by 0 Active (SYNTHROID) 25 MCG mouth BEFORE Oral Tab BREAKFAST. baclofen (LIORESAL) Take 10 mg by 0 Active 10 MG Oral Tab mouth THREE TIMES DAILY. LOSARTAN Take 1 Tab by 0 Active POTASSIUM-HCTZ PO mouth DAILY. Insulin Aspart Inject 35 Units 40 mL 4 Active (NOVOLOG FLEXPEN) beneath the skin 9 100 UNIT/ML THREE TIMES Subcutaneous DAILY BEFORE Solution MEALS. DX E11.65 Pen-injector [id number], plus 2u 50 points >150 potassium chloride Take 1 Tab by 90 Tab 3 Active (K-DUR) 20 MEQ Oral mouth DAILY. 9 Tab CR glipiZIDE Take 2 Tabs by 180 Tab 3 Active (GLUCOTROL XL) 10 mouth DAILY. 9 MG Oral TABLET SR 24 HR Cholecalciferol Take 50,000 Caps 12 Cap 2 Active (VITAMIN D3) 33867 by mouth EVERY 7 9 units Oral Cap DAYS. Insulin Glargine INJECT 30-60 30 mL 3 Active 100 UNIT/ML UNITS BENEATH 0 Subcutaneous THE SKIN Solution DIRECTED. Pen-injector Glucose Blood In 1 Each by Does 200 Strip 1 Active Vitro not apply route 0 StripIndications: FOUR TIMES DM (diabetes DAILY. Insurance mellitus), type 2, preferred DX uncontrolled with E11.9 qid complications (HCC) Ferrous Sulfate Take by mouth. 0 Active (IRON) 325 (65 Fe) MG Oral Tab Insulin Pen Needle 1 Each by 200 Each 3 Active (NOVOFINE) 32G X 6 Intravesical 0 MM Does not apply route FIVE TIMES Misc DAILY. divalproex sodium Take 500 mg by 0 12/16/19 Discontinued (DEPAKOTE) 500 MG mouth TWICE 20 Oral Tab EC DAILY. Takes 250 mg in am And 500 mg at HS OXYcodone-acetamino Take 1 Tab by 0 12/16/19 Discontinued phen (PERCOCET) mouth. 20 10-325 MG Oral Tab Insulin Pen Needle 1 Each by 200 Each 3 12/16/19 Discontinued (NOVOFINE) 32G X 6 Intravesical 8 20 (Reorder) MM Does not apply route FIVE TIMES Misc DAILY. Hospital, Clinic, or Other Ordered Dose Route Frequency Start Date End Date Status Facility Administered Medication bevacizumab (AVASTIN) 1.25 mg 12/29/2017 Active injection 1.25 mgIndications: Proliferative diabetic retinopathy of both eyes with macular edema associated with type 2 diabetes mellitus (HCC) documented as of this encounter (statuses as of 12/16/2019) Active Problems Problem Noted Date Proliferative diabetic retinopathy of both eyes with macular edema 09/20/2017 associated with type 2 diabetes mellitus Obesity, Class III, BMI 40-49.9 (morbid obesity) 03/08/2013 Unspecified essential hypertension 08/12/2010 Endometriosis 08/12/2010 Mixed hyperlipidemia 08/12/2010 documented as of this encounter (statuses as of 12/16/2019) Social History Tobacco Use Types Packs/Day Years Used Date Never Smoker Smokeless Tobacco: Never Used Alcohol Use Drinks/Week oz/Week Comments No rarely Sex Assigned at Date Recorded Not on file documented as of this encounter Last Filed Vital Signs Vital Sign Reading Time Taken Comments Blood Pressure 99/58 12/16/2019 10:33 AM EST Pulse 119 12/16/2019 10:33 AM EST Temperature - - Respiratory Rate - - Oxygen Saturation 97% 12/16/2019 10:33 AM EST Inhaled Oxygen Concentration - - Weight 102.1 kg (225 lb) 12/16/2019 10:33 AM EST Height 152.4 cm (5') 12/16/2019 10:33 AM EST Body Mass Index 43.94 12/16/2019 10:33 AM EST documented in this encounter Patient Instructions Patient InstructionsRenea Sinha MD - 12/16/2019 10:40 AM ESTGlipizide 10 mg twice a day Basaglar 50- in am And 60 at bedtime Novolog 35 units base + 2 per 50 over 150 We will consider Farxiga ( if kidneuy OK ) Please call blood sugar readings in 7- 10 days appt in 3 months appt with Conchita CLIFTON documented in this encounter Progress Notes Renea Sinha MD - 12/16/2019 10:40 AM EST PATIENT: Ree Ryan : 1970 DATE OF SERVICE: 12/16/2019 REFERRING PROVIDER: Renea Laurent* PRIMARY CARE PROVIDER: Maxx Tripathi CHIEF COMPLAINT: Chief Complaint Patient presents with ? Follow Up ? Diabetes Mellitus pt is checking sugars 4x daily HISTORY OF PRESENT ILLNESS: Ree Ryan is a 49-y.o. female who presents for a follow-up for T2D, diagnosed in 2003. Currentlymanaged on multiple oral agents and basal/bolus insulin. Cataracts both eye and retinopathy to right eye 2 yr ago Trajenta caused pancreatis , Eye exam cataracts both eyes Dr Sparks 12/12 Microvascular Complications artery embolization for the excessive vaginal bleeding She passed out due to heavy vaginal bleeding and high sugars She is on iron and stool softer AM 250- 350 Lunch 200 Dinner 250-300 Bedtime 300 Glipizide 10 mg twice a day Basaglar 30 in am And 60 at bedtime Novolog 35 units base + 2 per 50 over 150 Retinopathy: Followed by ophthalmology annually. + proliferative Retinopathy R eye. Nephropathy: Not known. No labs on file. Neuropathy: Reports paresthesias to feet and hands. Macrovascular Complications CAD/MO/CVA: Denies CP, palpitations, SOB. Mild Pedal swelling. PVD: None to date. ASHD: Currently on statin. Denies myalgias, leg cramps. BG: Checks BG ? DIET: 3 meals a day. No meal plan ACTIVITY: none. HYPOGLYCEMIA BG < 70: No hypoglycemia. No severe lows requiring assistance or emergency care. HYPERGLYCEMIA BG > 250MG: yes She is battling weight Sister had gastric bypass ( not successful) Nice had Gastric bypass Father gastric bypass bypass ( not successful) CURRENT MEDICATIONS Current Outpatient Medications: ? aspirin (ECOTRIN) 81 MG Oral Tab EC, Take 81 mg by mouth DAILY., Disp: , Rfl: ? atorvastatin (LIPITOR) 80 MG Oral Tab, Take 80 mg by mouth DAILY., Disp : , Rfl: ? baclofen (LIORESAL) 10 MG Oral Tab, Take 10 mg by mouth THREE TIMES DAILY., Disp: , Rfl: ? Blood Glucose Monitoring Suppl (BLOOD GLUCOSE METER) Does not apply Kit , by Does not apply route. Insurance preference, 250.00 tests 4 times daily, insulin dep, Disp: 1 Kit, Rfl: 0 ? Cholecalciferol (VITAMIN D3) 49589 units Oral Cap, Take 50,000 Caps by mouth EVERY 7 DAYS.,Disp: 12 Cap, Rfl: 2 ? Ferrous Sulfate (IRON) 325 (65 Fe) MG Oral Tab, Take by mouth., Disp: , Rfl: ? glipiZIDE (GLUCOTROL XL) 10 MG Oral TABLET SR 24 HR, Take 2 Tabs by mouth DAILY., Disp: 180Tab, Rfl: 3 ? Glucose Blood In Vitro Strip, 1 Each by Does not apply route FOUR TIMES DAILY. Insurance preferred DX E11.9 qid, Disp: 200 Strip, Rfl: 1 ? Insulin Aspart (NOVOLOG FLEXPEN) 100 UNIT/ML Subcutaneous Solution Pen- injector, Inject 35 Units beneath the skin THREE TIMES DAILY BEFORE MEALS. DX E11.65 BLO797, plus 2u 50 points >150, Disp: 40 mL, Rfl: 4 ? Insulin Glargine 100 UNIT/ML Subcutaneous Solution Pen-injector, INJECT 30-60 UNITS BENEATHTHE SKIN DIRECTED., Disp: 30 mL, Rfl: 3 ? Insulin Pen Needle (NOVOFINE) 32G X 6 MM Does not apply Misc, 1 Each by Intravesical route FIVE TIMES DAILY., Disp: 200 Each, Rfl: 3 ? Lancets Does not apply Misc, by Does not apply route FOUR TIMES DAILY. Insurance Preference, insulin dep, 250.00, Disp: 150 Each, Rfl: 5 ? levothyroxine (SYNTHROID) 25 MCG Oral Tab, Take 25 mcg by mouth BEFORE BREAKFAST., Disp: , Rfl: ? LOSARTAN POTASSIUM-HCTZ PO, Take 1 Tab by mouth DAILY., Disp: , Rfl: ? Multiple Vitamins-Minerals (MULTIVITAL PO), Take 1 Tab by mouth DAILY. , Disp: , Rfl: ? potassium chloride (K-DUR) 20 MEQ Oral Tab CR, Take 1 Tab by mouth DAILY., Disp: 90 Tab, Rfl: 3 Current Facility-Administered Medications: ? bevacizumab (AVASTIN) injection 1.25 mg, 1.25 mg, , , Joana Chavira MD, 1.25 mg at 12/29/17 2848 ALLERGIES Allergies Allergen Reactions ? Hydrocodone GI Reaction ? Lamotrigine Rash ? Metformin GI Reaction ? Rubella Vaccine Dermatologic Reaction ? Tradjenta [Linagliptin] Other Pancrease PAST MEDICAL HISTORY Past Medical History: Diagnosis Date ? Anxiety ? Bipolar 1 disorder (HCC) ? Diabetes 08/12/2010 ? Endometriosis 08/12/2010 ? Fibroid ? Hypercholesteremia ? Obesity, Class III, BMI 40-49.9 (morbid obesity) (HCC) ? Unspecified essential hypertension 08/12/2010 PAST SURGICAL HISTORY Past Surgical History: Procedure Laterality Date ? SECTION NEC ? SECTION NOS x2 ? CLOSED FRACTURE REDUCT left wrist ? D&C x2 for bleeding ? HYSTEROSCOPY ? MYRINGOTOMY WITH TUBES, BILATERAL as a child ? SP CHOLECYSTOSTOMY 2004 FAMILY HISTORY Family History Problem Relation Age of Onset ? Diabetes Mother ? Diabetes Father ? Hypertension Father ? Thyroid Father ? Diabetes Brother ? Breast Cancer Maternal Grandmother SOCIAL HISTORY Social History Socioeconomic History ? Marital status: Spouse name: Not on file ? Number of children: Not on file ? Years of education: Not on file ? Highest education level: Not on file Occupational History ? Not on file Social Needs ? Financial resource strain: Not on file ? Food insecurity Worry: Not on file Inability: Not on file ? Transportation needs Medical: Not on file Non-medical: Not on file Tobacco Use ? Smoking status: Never Smoker ? Smokeless tobacco: Never Used Substance and Sexual Activity ? Alcohol use: No Comment: rarely ? Drug use: No ? Sexual activity: Yes Partners: Male control/protection: Condom Lifestyle ? Physical activity Days per week: Not on file Minutes per session: Not on file ? Stress: Not on file Relationships ? Social connections Talks on phone: Not on file Gets together: Not on file Attends [employer]aritan service: Not on file Active member of club or organization: Not on file Attends meetings of clubs or organizations: Not on file Relationship status: Not on file ? Intimate partner violence Fear of current or ex partner: Not on file Emotionally abused: Not on file Physically abused: Not on file Forced sexual activity: Not on file Other Topics Concern ? Not on file Social History Narrative Patient is unemployed, , two children REVIEW OF SYSTEMS: A comprehensive review of systems was negative except for as noted in the history of present illness/subjective. PHYSICAL EXAM: BP 99/58 (BP Location: Right arm, Patient Position: Sitting) Pulse 119 Ht 5' ( 1.524 m) Wt 225 lb (102.1 kg) SpO2 97% BMI 43.94 kg/m2 GENERAL: Obese female who is talkative, alert, oriented, no acute distress. SKIN: normal, no rashes or abnormalities noted. EYES: conjunctivae/corneas clear. Pupils equal, round, reactive to light. Equal ocular movements intact. Fundi poorly visualized NECK: no mass, no adenopathy, no thyromegaly. LYMPH: No palpable LAD in the supraclavicular, submandibular, submental, anterior cervical, posterior cervical, supraclavicular, or occipital chains LUNGS: clear to auscultation bilaterally. HEART: regular rhythm, no mumurs. ABDOMEN: soft, non tender. EXTREMITIES: no clubbing, cyanosis, or edema. NEUROLOGICAL: alert and oriented x3, +2 DTRs bilat.. Left foot Diabetic foot exam: Visual exam: normal Sensory: Filament test: absent Pulse: a pulse was present Right foot diabetic exam Visual exam: normal Sensory: Filament test: absent Pulse: a pulse was present LAST LAB RESULTS Lab Results Component Value Date NA 141 01/10/2019 K 3.7 01/10/2019 CL 102 01/10/2019 CO2 26 01/10/2019 GLUCOSE 106 (H) 01/10/2019 BUN 19 (H) 01/10/2019 CREATININE 1.2 01/10/2019 CALCIUM 9.1 01/10/2019 TP 7.6 01/10/2019 ALBUMIN 4.2 01/10/2019 AST 33 01/10/2019 ALT 25 01/10/2019 ALK 72 01/10/2019 TBILI 0.4 01/10/2019 EGFR 48 01/10/2019 ASSESSMENT/PLAN: 1. Type 2 Diabetes with diabetic polyneuropathy with halfway use of insulin- Most recent glyco 11.7 NEPHROPATHY: On ARB. NEUROPATHY: Moderate sensory loss on exam. Hands also with loss of vibratory sensation EYES: Instructed to have annual eye examination. + Retinopathy FEET: Instructed to inspect feet daily. BG: CHECK BLOOD GLUCOSE BEFORE EACH MEAL AND 2 HOURS AFTER DINNER. KEEP LOG OF BG READINGS. BRING METER AND LOG TO EVERY APPOINTMENT. REPORT BLOOD GLUCOSE READINGS TO OFFICE IN 1 WEEK AND EVERY 2 WEEKS THEREAFTER ACTIVITY: Instructed to work toward goal of 30 minutes exercise daily. If inactive, begin with 5-15 minutes of walking 5 days a week. Increase by 5 minute increments to reach goal of 30 min./session 5days a week. 2. Diabetic retinopathy, unspecified severity - Will follow up with ophthalmology for retinopathy. 3. HTN, essential - Well-controlled. On ARB. Hx of hypokalemia we will check grayson/renin 8 am And 11 pm cortisol X 2 She did not obtain it 4. HYPERLIPIDEMIA - On statin. Glipizide 10 mg twice a day Basaglar 50- in am And 60 at bedtime Novolog 35 units base + 2 per 50 over 150 We will consider Farxiga ( if kidneuy OK ) Please call blood sugar readings in 7- 10 days appt in 3 months appt with Conchita CLIFTON Patient agrees with plan of care Will write with results t Renea Sinha MD 12/16/2019 10:45 documented in this encounter Plan of Treatment Date Type Specialty Care Team Description 03/30/2020 Office Visit Endocrinology Renea Johnson RN [address] [place] [address] 08/31/2020 Office Visit Endocrinology Renea Sinha MD [address] [place] [address] Health Maintenance Due Date Last Done Comments MEDICARE ANNUAL WELLNESS 1970 VISIT PNEUMOCOCCAL 0-64 YRS (1 of 1976 1 - PPSV23) DTaP/Tdap/Td Vaccines ( - 1981 Tdap) DEPRESSION SCREENING 1982 MAMMOGRAM (SCREENING) 02/04/2014 02/04/2013, 02/04/2013 (Previously completed) PAP SMEAR 01/23/2016 01/22/2013 (Previously completed), 11/24/2008 HEMOGLOBIN A1C 08/23/2018 05/23/2018, 03/13/2017, 06/24/2014, Additional history exists INFLUENZA VACCINE (#1) 2019 LIPID DISORDER SCREENING 01/11/2020 01/10/2019, 09/01/2016 FOOT EXAM 05/22/2020 05/22/2019, 05/22/2019, 05/22/2019, Additional history exists Diabetic Eye Exam 11/25/2021 11/25/2019, 11/25/2019, 01/05/2018, Additional history exists HEPATITIS A IMMUNIZATION Aged Out No longer eligible SERIES based on patient's age to complete this topic HPV IMMUNIZATION SERIES Aged Out No longer eligible based on patient's age to complete this topic MENINGOCOCCAL VACCINE IMM Aged Out No longer eligible based on patient's age to complete this topic documented as of this encounter Procedures Procedure Name Priority Date/Time Associated Diagnosis Comments ACCU-CHECK GLUCOSE (AMB Routine 12/16/2019 10:42 DM (diabetes Results for this POCT) AM EST mellitus), type 2, procedure are in uncontrolled with the results complications (HCC) section. GLYCOHEMOGLOBIN (AMB Routine 12/16/2019 10:42 DM (diabetes Results for this POCT) AM EST mellitus), type 2, procedure are in uncontrolled with the results complications (HCC) section. documented in this encounter Results GLYCOHEMOGLOBIN (AMB POCT) (12/16/2019 10:42 AM EST) GLYCOHEMOGLOBIN (POCT) 11.7 (A) 3.9 - 5.6 % [facility] POCT Specimen Performing Organization Address [facility] Phone Number [facility] POCT [address] [facility] [place] [address] ACCU-CHECK GLUCOSE (AMB POCT) (12/16/2019 10:42 AM EST) Glucose, Accu-Check 372 (A) 70 - 99 mg/dl [facility] POCT Glucose Strip Lot # [id number] [facility] POCT QC Documented Yes Yes [facility] POCT Specimen Performing Organization Address [facility] Phone Number [facility] [address]CT [address] [place] [address] documented in this encounter Visit Diagnoses Diagnosis DM (diabetes mellitus), type 2, uncontrolled with complications (HCC) Type II or unspecified type diabetes mellitus with unspecified complication, uncontrolled documented in this encounter Insurance Payer Benefit Plan / Subscriber ID Effective Dates Phone Address Type Group FIDELIS MEDICARE FIDELIS CARE [id number] 2018-Present [employer] [place] Guarantor Name Account Type Relation to Date of Phone Billing Patient Address Ree Ryan Personal/Family 1970 [phone] [id number] (Home) [place], [place] [phone] [id number] (Work) documented as of this encounter Advance Directives Type Date Recorded Patient Ward Helper Explanation Advance Directives 11/28/2019 12:03 PM Eye Exam
[2019-12-17 21:16] LABS: ABS Basophils 0.1 10^3/ul (0-0.2); ABS Eosinophils 0.4 10^3/ul (0-0.6); ABS Lymphocytes 4.2 10^3/ul (1.0-4.8); ABS Monocytes 0.5 10^3/ul (0-0.8); Eosinophil % 3.1 %; Hematocrit 31 % (35-47); Hemoglobin 10.4 g/dL (12.0-16.0); Lymphocyte % 31.5 %; Mean Corpuscular HGB Conc 34 g/dL (31-36); Mean Corpuscular Hemoglobin 28 pg (27-31); Mean Corpuscular Volume 84 fL (80-97); Mean Platelet Volume 7.3 fL (7.4-10.4); Platelet Count 514 10^3/uL (150-450); Red Blood Count 3.69 10^6 /uL (3.70-4.87); Red Cell Distribution Width 16 % (10-15); White Blood Count 13.2 10^3/uL (3.5-10.8)
[2019-12-17 21:33] LABS: Albumin 3.9 g/dL (3.2-5.2); BUN/Creatinine Ratio 15.1 (8-20); Calcium 9.7 mg/dL (8.6-10.3); EGFR African American 28.9 (>60); EGFR Non-African American 23.8 (>60); Globulin 3.8 g/dL (2-4); Potassium 3.8 mmol/L (3.5-5.0); Total Bilirubin 0.4 mg/dL (0.2-1.0); Total Protein 7.7 g/dL (6.4-8.9)
[2019-12-17] MEDS ORDERED: NS 0.9% 1000 ML** 1,000 ML IV ONE (23:50)
[2019-12-18 00:44] LABS: INR 1.06 (0.82-1.09)
[2019-12-18 00:54] LABS: Magnesium 1.6 mg/dL (1.9-2.7)
[2019-12-18] MEDS ORDERED: Magnesium CITRATE* 300 ML BTL PO ONE (00:58)
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
[2019-12-18 01:26] LABS: TSH (Thyroid Stimulating Horm) 4.84 mcIU/mL (0.34-5.60)
[2019-12-18] MEDS ORDERED: Magnesium Chloride EC TAB* 64 MG PO ONE (01:39)
[2019-12-18 02:21] LABS: Urine Appearance Cloudy; Urine Bilirubin Negative (Negative); Urine Blood 1+ (Negative); Urine Color Yellow; Urine Glucose Negative (Negative); Urine Ketones Negative (Negative); Urine Nitrite Negative (Negative); Urine Protein 1+(30 mg/dL) (Negative); Urine Specific Gravity 1.016 (1.010-1.030); Urine Urobilinogen Negative (Negative)
[2019-12-18 02:32] LABS: Urine Bacteria Absent (Absent); Urine Red Blood Cell 1+(3-5/hpf) (Absent); Urine Squamous Epithelial Cell Present (Absent); Urine White Blood Cell 3+(>20/hpf) (Absent)
[2019-12-18] MEDS ORDERED: Cephalexin CAP* 500 MG PO ONE (02:41)
[2019-12-18 03:19] VITALS: BP 136/82
== END 2019-12-18 03:17 | disposition home or self-care (01) ==
LOC: ED 17:51
DX: I95.9 Hypotension, unspecified (principal); N39.0 Urinary tract infection, site not specified; R42 Dizziness and giddiness; R51 Headache; E03.9 Hypothyroidism, unspecified
CPT/HCPCS: 36415; 80053; 81003; 81015; 83605; 83735; 84443; 84484; 85025; 85610; 87086; 93005; 96360; 99284; A9270-GY

== ENCOUNTER 2019-12-19 10:50 | Observation (INO) | payer MEDICARE, MEDICAID ==
[2019-12-19] MEDS ORDERED: Clindamycin 900 MG/D5W BAG(*) 900 MG/50 ML BAG IVPB ONE (11:00)
[2019-12-19] MEDS ORDERED: Scopolamine 1.5 mg* PATCH ONE (12:19)
[2019-12-19] MEDS ORDERED: LORazepam TAB(*) 1 MG ONE (12:19)
[2019-12-19] MEDS ORDERED: Naproxen TAB* 250 MG ONE (12:19)
[2019-12-19] MEDS ORDERED: Ondansetron INJ* 2 MG/ML VIAL ONE ×2 (12:19→16:58)
[2019-12-19] MEDS ORDERED: oxyCODONE SR TAB(*) 10 MG TAB.SR ONE (12:20)
[2019-12-19] MEDS ORDERED: Midazolam* 1 MG/ML 5 ML VIAL (5 MG) ONE (13:02)
[2019-12-19] MEDS ORDERED: fentaNYL* 50 MCG/ML 5 ML VIAL (250 MCG VIAL) ONE (13:02)
[2019-12-19] MEDS ORDERED: nitroGLYCERIN DRIP* 25,000 MCG/250 ML BTL ONE (13:03)
[2019-12-19] MEDS ORDERED: VERAPAMIL 2.5 MG/ML 2 ML VIAL ** 5 mg/2 ml ONE (13:03)
[2019-12-19] MEDS ORDERED: Heparin 2 UNITS/ML IVPREMIX* 2,000 ML IV ONE (13:03)
[2019-12-19] MEDS ORDERED: Heparin(*) 1000 UNIT/ML 10 ML VIAL CATH LAB IV ONE (13:03)
[2019-12-19] MEDS ORDERED: Lidocaine 1% INJ* 10 MG/ML 30 ML SDV ONE (13:03)
[2019-12-19] MEDS ORDERED: Iohexol 350 (CONTRAST) 200 ML MDV IV ONE (13:04)
[2019-12-19] MEDS ORDERED: Iodixanol 320 (CONTRAST) 100 ML SDV ONE (13:12)
[2019-12-19] MEDS ORDERED: Ketorolac INJ* 30 MG/ML 1 ML VIAL ONE ×2 (13:19→16:58)
[2019-12-19] MEDS ORDERED: Nitro 2% OINT* (Nitroglycerin) 1 INCH/PAK PAK ONE (13:23)
[2019-12-19 14:22] LABS: BUN/Creatinine Ratio 20.2 (8-20); Calcium 9.2 mg/dL (8.6-10.3); EGFR African American 53.1 (>60); EGFR Non-African American 43.9 (>60); Potassium 4.1 mmol/L (3.5-5.0)
[2019-12-19] MEDS ORDERED: Heparin 2 UNITS/ML IVPREMIX* 1,000 ML IV ONE (14:26)
[2019-12-19] MEDS ORDERED: HYDROmorphone INJ1* 1 MG/ML SYRINGE ONE (15:38)
[2019-12-19] MEDS ORDERED: HYDROmorphone PCA* 20 MG/20 ML PCA.SYRING PCA SCH (16:00)
[2019-12-19] MEDS ORDERED: Albuterol 2.5 MG/3 ML NEB.SOL* (0.083%) INH PRN (18:28)
[2019-12-19] MEDS ORDERED: Acetaminophen TAB* 325 MG PO PRN (18:28)
[2019-12-19] MEDS ORDERED: NS 0.9% 1000 ML** 1,000 ML IV SCH (18:30)
[2019-12-19] MEDS ORDERED: Cyclobenzaprine TAB* 10 MG PO PRN (18:31)
[2019-12-19] MEDS ORDERED: PROCHLORPERAZINE INJ 5 MG/ML 2 ML VIAL ONE (18:39)
[2019-12-19] MEDS ORDERED: Magnesium Sulfate 1 GM IV* 1 GM/100 ML BAG IV ONE (18:58)
--- NOTE | 2019-12-19 19:06 | PN ---
Progress Note - Progress Note Date of Service: 12/19/19 SOAP: Subjective: Patient reports pelvic "discomfort", but cannot rate on 10 scale. + episode of emesis after drinking water, but no nausea now. + void. Objective: Selected Entries 12/19/19 18:30 Heart Rate 100 Respiratory 20 Rate Blood Pressure 150/94 (mmHg) Blood Pressure 120 Mean O2 Sat by Pulse 94 Oximetry NAD, Sitting up and conversant. Abd is soft, minimally tender No bleeding at left radial arteriotomy site. 2+ pulse palpable at left radial artery. Left hand is warm to touch. Neuromuscular function of left forearm and hand are grossly intact. Assessment: 49 YOF s/p Uterine Artery Embolization (UAE) from left radial arteriotomy with pain well controlled and an episode of emesis. Plan: 1. Add compazine 5 mg IV Q hours PRN. 2. Otherwise routine post UAE IR protocol for pain and nausea control. 3. Will see patient in AM.
--- NOTE | 2019-12-19 21:26 | HP ---
AMENDED REPORT NOW INCLUDES DESIGNATED COSIGNER - ESIGNED BEFORE ADJUSTMENTS DATE OF ADMISSION NOW INCLUDED ON THIS REPORT CC: Dr. Maxx Tripathi * ADMISSION HISTORY AND PHYSICAL: DATE OF ADMISSION: 12/19/19 PRIMARY CARE PHYSICIAN: Dr. Maxx Tripathi. ADMITTING PHYSICIAN: Dr. Moyer * (dictated by Kashmir Valencia NP). CHIEF COMPLAINT: Abnormal bleeding. HISTORY OF PRESENT ILLNESS: Ms. Ryan is a 49-year-old female with past medical history significant for hypertension; depression; anxiety; diabetes, type 2; thyroid disease; hypercholesterolemia; anemia; COPD; asthma. Today, she underwent a UAE performed by Dr. Sullivan. She states that she has had abnormal bleeding since beginning menses at age 10. She has been transfused in the past. She says the last time was sometime in 2019. She also says that she was recently diagnosed with hypotension and UTI on Monday night. She has been prescribed cephalexin 3 times a day for 1 week for this. Also, a recent hemoglobin A1c which she states was 11.7; however there is no recent level noted [place] [facility] [place]. She says that Dr. Renea Moy has recently adjusted her insulin levels. She currently denies any headache, does however complain of nausea at this time. No chest pain, shortness of breath, abdominal pain, diarrhea, difficulty with urination, unusual numbness or tingling or visual changes. She denies any other concerns at this time. Hospital Medicine was asked to evaluate the patient for observation overnight after this procedure. She denies any other known history of bleeding or clotting disorders. PAST MEDICAL HISTORY: 1. Hypertension. 2. Depression, anxiety. 3. Diabetes, type 2. 4. Arthritis. 5. Migraines. 6. Abnormal moles. 7. Thyroid disease. 8. Hypercholesterolemia. 9. Anemia. 10. Bipolar disorder. 11. COPD. 12. Asthma. 13. Pneumonia. 14. Herniated disk. 15. Glaucoma. 16. Retinopathy. PAST SURGICAL HISTORY: 1. Tympanostomy tube insertion. 2. Cholecystectomy, 2004. 3. section, 1995 and 2000. 4. D and C, 1996 and 2002. HOME MEDICATIONS: 1. Glipizide ER 10 mg p.o. b.i.d. 2. Multivitamin 1 tab p.o. daily. 3. Meclizine 25 mg p.o. daily. 4. Losartan 100 mg p.o. daily. 5. Levothyroxine 25 mcg p.o. q.a.m. 6. Sliding scale insulin, Aspart/NovoLog 100 units/mL, 35 to 100 units injection sliding scale. 7. Basaglar KwikPen 100 units/mL, 50 units subcu q.a.m. and 60 units subcu q.p.m. 8. Hydrochlorothiazide 25 mg p.o. q.a.m. 9. Ferrous sulfate 325 mg p.o. daily. 10. Cyclobenzaprine 5 mg p.o. t.i.d. p.r.n. 11. Cholecalciferol 50,000 units p.o. weekly. 12. Cephalexin 500 mg p.o. t.i.d. 13. Atorvastatin 80 mg p.o. q.a.m. 14. Acyclovir 200 mg p.o. t.i.d. p.r.n. ALLERGIES: HYDROCODONE, LINAGLIPTIN, RUBELLA VIRUS LIVE VACCINE. FAMILY HISTORY: Father with diabetes, due to [place]. Mother with diabetes. Paternal grandfather due to fire. Maternal grandmother, breast cancer, due to Alzheimer's disease. SOCIAL HISTORY: The patient's surrogate decision maker for her would be her boyfriend, Yung Logan. She denies any tobacco use. States a rare alcohol use , denies any illicit drug use. States she is disabled. Lives with her boyfriend and her daughter. REVIEW OF SYSTEMS: A 10-point review of systems was completed with this patient. Please see HPI for all pertinent positives and negatives. PHYSICAL EXAMINATION CONSTITUTIONAL: The patient is sitting up in bed, appears to be in moderate discomfort. VITAL SIGNS: Last vital signs: Temp 96.8, heart rate 100, respiratory rate 20 , O2 sat 94%, blood pressure 150/94. HEENT: PERRL. No scleral icterus noted. RESPIRATORY: Lung sounds clear throughout bilaterally. Normal respiratory effort. Good air flow. CARDIOVASCULAR: Heart rate regular. S1, S2 present. Grade 2/6 systolic murmur best heard at the right upper sternal border. No rubs or gallops noted. No edema. GI: Bowel sounds throughout. ABDOMEN: Large, soft, nontender. MUSCULOSKELETAL: Able to wiggle toes and move around her bed. NEURO: Alert and oriented x3. Able to sense light touch to bilateral feet. SKIN: Warm and dry. DIAGNOSTIC STUDIES/LAB DATA: Sodium 136, potassium 4.1, chloride 105, carbon dioxide 21, anion gap 10, BUN 26, creatinine 1.29, estimated GFR 43.9, BUN/ creatinine ratio 20.2, glucose 104, calcium 9.2. Beta-hCG negative. ASSESSMENT AND PLAN: Ms. Ryan is a 49-year-old female with past medical history significant for hypertension; diabetes, type 2; thyroid disease; hypercholesterolemia; chronic obstructive pulmonary disease; asthma, who today had an elective procedure with Dr. Sullivan, who performed a uterine artery embolization. Hospital Medicine was asked to observe and manage medical comorbidities overnight. 1. Status post uterine artery embolization. Management per Dr. Sullivan includes pain control, IV fluids, and sheath site monitoring. 2. Diabetes, type 2. Fingersticks a.c., h.s. Holding glipizide and nighttime insulin. Resume glargine 30 units in the a.m. Sliding scale Lispro a.c., h.s. 3. Hypertension. We will continue to monitor blood pressures per protocol. Currently, they are remaining stable. The patient was recently diagnosed with urinary tract infection and was noted to have a higher than normal level of creatinine as well as BUN with a significantly lower GFR; however, levels from today showed that these are improving. We will hold losartan at this time. 4. Urinary tract infection. We will continue course of cephalexin 500 mg p.o. t.i.d. We will restart this tonight. 5. Hypomagnesemia. Recent low magnesium level 1.6. Did receive some mg supplementation with no f/u labs. Received Mg Sulfate 1mg IV this admission. Labs to be drawn in the a.m. 6. SIRS. Tachycardia and occasional elevations of RR. Pt is noted to have had a WBC 13.2 and Lactic acid 1.3 from prior ED visit on 12/17. She was also tachycardic throughout that visit with elevations in RR. She was dx with UTI and hypotension. She has been on abx therapy. There is no reason to suspect sepsis at this point. CBC ordered for the a.m. Will continue to monitor. 7. Thyroid disease. We will continue the usual dosage of levothyroxine in the a.m. 8. History of hypercholesterolemia. We will continue with the usual atorvastatin dosage. 9. Chronic obstructive pulmonary disease and asthma. Although she confirms these diagnoses, she does not appear to be treated for either of them at home. We will add on an albuterol nebulizer p.r.n. for shortness of breath or wheezing. 10. FEN: Increase to consistent carb diet as tolerated. IV fluids per Dr. Sullivan. 11. Code status: Full code. 12. DVT prophylaxis: SCDs. TIME SPENT: Approximately 60 minutes was spent on this admission with half of that being [id number] with the patient and her for interview, physical exam, and reviewing plan of care. This case has been reviewed by my attending physician, Dr. Moyer; she agrees with this plan. KASHMIR VALENCIA NP [id number]/CPS #: [id number] JOSEPHINE
[2019-12-19] MEDS ORDERED: Insulin GLARGINE(*) 1 UNITS UNIT SUBCUT ONE (22:13)
[2019-12-19] MEDS: Cephalexin CAP* 500 MG PO SCH (22:32)
[2019-12-19] MEDS: Insulin LISPRO* 1 UNITS UNIT SUBCUT SCH (22:33)
[2019-12-19] MEDS: Ondansetron INJ* 2 MG/ML VIAL IV SCH (22:38)
[2019-12-19] MEDS ORDERED: Ketorolac INJ* 15 MG/ML 1 ML VIAL IV PUSH SCH (23:00)
[2019-12-20] MEDS ORDERED: Ketorolac INJ* 15 MG/ML 1 ML VIAL IV PUSH SCH (05:00)
[2019-12-20 05:31] LABS: ABS Basophils 0.1 10^3/ul (0-0.2); ABS Eosinophils 0.3 10^3/ul (0-0.6); ABS Monocytes 0.5 10^3/ul (0-0.8); ABS Neutrophils 7.2 10^3/ul (1.5-7.7); Eosinophil % 2.6 %; Hematocrit 28 % (35-47); Hemoglobin 9.3 g/dL (12.0-16.0); Lymphocyte % 19.9 %; Mean Corpuscular HGB Conc 33 g/dL (31-36); Mean Corpuscular Hemoglobin 28 pg (27-31); Mean Corpuscular Volume 85 fL (80-97); Mean Platelet Volume 7.1 fL (7.4-10.4); Platelet Count 418 10^3/uL (150-450); Red Blood Count 3.28 10^6 /uL (3.70-4.87); Red Cell Distribution Width 16 % (10-15)
[2019-12-20 05:47] LABS: BUN/Creatinine Ratio 18.5 (8-20); Calcium 8.2 mg/dL (8.6-10.3); EGFR African American 58.3 (>60); EGFR Non-African American 48.2 (>60); Magnesium 1.5 mg/dL (1.9-2.7); Potassium 4.4 mmol/L (3.5-5.0)
[2019-12-20] MEDS: Ondansetron INJ* 2 MG/ML VIAL IV SCH (05:52)
[2019-12-20] MEDS ORDERED: Levothyroxine TAB* 25 MCG TAB PO SCH (06:00)
[2019-12-20] MEDS ORDERED: Magnesium Sulf 4 GM/100 ML IV* 4,000 MG/100 ML BAG IVPB ONE (07:53)
--- NOTE | 2019-12-20 08:44 | PN ---
Progress Note - Progress Note Date of Service: 12/20/19 SOAP: Subjective: Patient reports minimal cramping rated 1/10. Denies pain at left wrist arteriotomy site. Denies nausea or emesis since isolated episode of emesis immediately following UAE. Ate turkey sandwich over night and has been drinking water. Walking independently. Objective: Selected Entries 12/20/19 12/20/19 03:26 05:00 Temperature 97.6 F Pulse Rate 105 Respiratory 14 Rate Blood Pressure 139/84 (mmHg) Blood Pressure 102 Mean O2 Sat by Pulse 99 Oximetry NAD, Sitting up, conversant, AAO x 3 Abd is soft, not significantly tender to palpation. Left wrist radial arteriotomy site is soft, nontender Clear dressing with tiny focus of dry blood 2+ left radial pulse Left hand warm to touch with brisk capillary refill Sensation intact to light touch at left hand M/R/U nerve distributions Motor function in left hand and wrist is intact and 5/5 Assessment: 49 YOF POD #1 Uterine Artery Embolization from left radial arteriotomy with post procedure pain and nausea well controlled. Plan: 1. IV to PO medications. 2. Encourage ambulation. 3. Anticipate DC to home today. 4. Routine IR follow up will include the following regimen: Toradol 5 mg PO Q 6 hours x 3 days (Dispense #15 with one refill) AFTER Toradol is complete: Ibuprofen 400 mg PO Q 6 hours OR Naprosyn 225 mg PO Q 8 hours for 3 days (do not take both) [place] 5/325, take 1 or 2 tablets by mouth Q 6 hours PRN breakthrough pain ( Dispense #40) Zofran 4 mg PO Q 6 hours x 7 days (Dispense #30 with one refill) Scopolamine 1.5 mg transdermal to mastoid process. On 12/23/19 at 900 AM, remove current patch, replace with new patch and wear x 3 days. Drink one cup of laxative tea daily (For example, "Smooth Move") for one week.
[2019-12-20] MEDS ORDERED: HYDROcodone/ACETAMIN 5-325 MG* 1 TAB PO PRN (08:50)
[2019-12-20] MEDS: Insulin LISPRO* 1 UNITS UNIT SUBCUT SCH ×2 (08:56→12:36)
[2019-12-20] MEDS ORDERED: Multivitamins/Minerals TAB PO SCH (09:00)
[2019-12-20] MEDS ORDERED: Magnesium Oxide TAB* 400 MG PO ONE (09:00)
[2019-12-20] MEDS ORDERED: Hydrochlorothiazide TAB* 25 MG PO SCH (09:00)
[2019-12-20] MEDS ORDERED: Losartan TAB* 25 MG PO SCH (09:00)
[2019-12-20] MEDS ORDERED: Insulin GLARGINE(*) 1 UNITS UNIT SUBCUT SCH (09:00)
[2019-12-20] MEDS ORDERED: Atorvastatin* 80 MG TAB PO SCH (09:00)
[2019-12-20] MEDS ORDERED: Ferrous Sulfate TAB* 325 MG PO SCH (09:00)
[2019-12-20] MEDS: Cephalexin CAP* 500 MG PO SCH ×2 (09:35→14:16)
[2019-12-20] MEDS: Ketorolac TAB * 10 MG TAB PO SCH ×2 (09:38→14:16)
[2019-12-20] MEDS: Ondansetron TAB* 4 MG PO SCH ×2 (09:40→14:16)
[2019-12-20] MEDS ORDERED: traMADol TAB* 50 MG PO PRN (10:00)
[2019-12-20] MEDS ORDERED: oxyCODONE/Acetamin 5/325 MG* TAB PO PRN ×2 (10:02)
[2019-12-20 12:17] VITALS: BP 139/81
[2019-12-20] MEDS ORDERED: Ondansetron INJ* 2 MG/ML VIAL IV PRN (13:36)
--- NOTE | 2019-12-21 00:53 | DS ---
AMENDED REPORT NOW INCLUDES DESIGNATED COSIGNER - ESIGNED BEFORE ADJUSTMENTS CC: Dr. Tripathi; Dr. Black Sullivan; Dr. Kumar; Dr. Rae * DISCHARGE SUMMARY: DATE OF ADMISSION: 12/19/19 DATE OF DISCHARGE: 12/20/19 PROVIDER: Nathalie Choe NP. ATTENDING PHYSICIAN: Dr. Melani Moyer * (dictated by Nathalie Choe NP). INTERVENTIONAL RADIOLOGIST: Dr. Black Sullivan. PRIMARY CARE PHYSICIAN: Dr. Maxx Tripathi. PRIMARY DISCHARGE DIAGNOSIS: Uterine artery embolization with left radial site. SECONDARY DISCHARGE DIAGNOSES: 1. Hypertension. 2. Depression. 3. Anxiety. 4. Type 2 diabetes. 5. Arthritis. 6. Migraines. 7. Abnormal moles. 8. Thyroid disease. 9. Hypercholesterolemia. 10. Anemia. 11. Bipolar disorder. 12. Chronic obstructive pulmonary disease. 13. Asthma. 14. Pneumonia. 15. Herniated disk. 16. Glaucoma. 17. Retinopathy. MEDICATIONS AT DISCHARGE: 1. Glipizide ER 10 mg b.i.d. 2. Multivitamin 1 tab daily. 3. Meclizine 25 mg daily. 4. Losartan 100 mg daily. 5. Levothyroxine 25 mcg q.a.m. 6. NovoLog per sliding scale. 7. Basaglar 50 units subcu q.a.m., 60 units subcu q.p.m. 8. Hydrochlorothiazide 25 mg q.a.m. 9. Ferrous sulfate 325 mg daily. 10. Cyclobenzaprine 5 mg t.i.d. p.r.n. 11. Cholecalciferol 50,000 units weekly. 12. Cephalexin 500 mg t.i.d. 13. Atorvastatin 80 mg q.a.m. 14. Acyclovir 200 mg t.i.d. p.r.n. New medications upon discharge: 1. Toradol 5 mg q.6 hours x3 days. After Toradol is complete, the patient may take ibuprofen 400 mg q.6 hours or Naprosyn 225 mg q.8 hours. 2. Percocet 1 to 2 tablets q.6 hours p.r.n. pain. 3. Zofran 4 mg q.6 hours x7 days. 4. Scopolamine 1.4 mg transdermal to mastoid process q.72 hours x1 week. HOSPITAL COURSE: For full details, please refer to the H and P provided by Tia Hollingsworth NP on admission. In summary, this is a 49-year-old female, who has a history of abnormal bleeding, who is status post uterine fibroid embolization by Dr. Sullivan. She was observed overnight and given supportive care. She was reevaluated on the morning of 12/20/19 reporting minimal cramping and denied any pain into left wrist arteriotomy site. She denies any nausea, has tolerated breakfast. Her pain has been appropriately controlled. We reviewed the pain control regimen with her and medications were sent to the [facility] outpatient pharmacy per protocol. She is tolerating ambulation and expresses no concerns. PHYSICAL EXAMINATION: General: This is a 49-year-old female seen sitting up in the bed. She is pleasant, conversant, and in no acute distress. HEENT: Extraocular movements are intact. Oral mucosa is moist. Neck is supple with full range of motion. Cardiac: Regular rate and rhythm. There is a soft systolic murmur appreciated, best heard along the right upper sternal border. Lungs: Clear to auscultation. Abdomen with positive bowel sounds. Extremities with full active range of motion. No edema noted. Neuro: She is alert and oriented x3. Sensation is intact to light touch to the lower extremities. OUTPATIENT FOLLOWUP: She is to follow up with Dr. Sullivan as scheduled. I have included the discharge instructions per Dr. Sullivan's notes, which include the medication regimen that is attached to her discharge instructions. May give her prescriptions for her Toradol, Zofran, scopolamine patch. She was also given prescriptions for Percocet as hydrocodone has a history of causing hives for this patient; she tolerated oxycodone here at the hospital prior to discharge. She has been advised to utilize ibuprofen or Naprosyn, as per the instructions, but not to use both. She can choose which one she prefers. DIET: May resume previous diet, which should be diabetic, heart healthy. ACTIVITY: As tolerated. CONDITION: Stable. DISPOSITION: To home. TIME SPENT: Approximately 40 minutes was spent on this discharge. Again, this is only a brief summary of the patient's hospital course of stay. For full details, please refer to the full medical record. If you need assistance or have further questions, please feel free to contact us at . NATHALIE CHOE NP [id number]/LYNSEY #: [id number] JOSEPHINE
== END 2019-12-20 16:00 | disposition home or self-care (01) ==
LOC: CHICATH 10:50 → SSU 18:19
PROVIDERS: ADMIT Nurse Practitioner Family; ATTEND Internal Medicine
DX: N92.4 Excessive bleeding in the premenopausal period (principal); I10 Essential (primary) hypertension; F32.9 Major depressive disorder, single episode, unspecified; R41.9 Unspecified symptoms and signs involving cognitive functions and awareness; E11.9 Type 2 diabetes mellitus without complications; M19.90 Unspecified osteoarthritis, unspecified site; G43.909 Migraine, unspecified, not intractable, without status migrainosus; D22.9 Melanocytic nevi, unspecified; E03.9 Hypothyroidism, unspecified; E78.00 Pure hypercholesterolemia, unspecified; D64.9 Anemia, unspecified; F31.9 Bipolar disorder, unspecified; J44.9 Chronic obstructive pulmonary disease, unspecified; J18.9 Pneumonia, unspecified organism; H40.9 Unspecified glaucoma; H35.00 Unspecified background retinopathy; Z79.890 Hormone replacement therapy; Z79.899 Other long term (current) drug therapy
CPT/HCPCS: 36415; 37243; 76937; 80048; 83735; 84702; 85025; 99156; 99157; A9270-GY; C1887; G0378; J0780; J1170; J1644; J1885; J2250; J2405; J3010; J3475

== ENCOUNTER 2020-07-01 01:00 | Inpatient (IN) ==
[2020-07-01 02:46] LABS: Urine Appearance Cloudy; Urine Bilirubin Negative (Negative); Urine Blood 3+ (Negative); Urine Color Yellow; Urine Glucose 3+(>=500 mg/dL) (Negative); Urine Ketones Negative (Negative); Urine Nitrite Negative (Negative); Urine Protein 2+(100 mg/dL) (Negative); Urine Specific Gravity 1.011 (1.010-1.030); Urine Urobilinogen Negative (Negative)
[2020-07-01 02:51] LABS: Urine Bacteria 1+ (Absent); Urine Red Blood Cell 3+(>10/hpf) (Absent); Urine Squamous Epithelial Cell Present (Absent); Urine White Blood Cell 3+(>20/hpf) (Absent)
[2020-07-01 03:02] LABS: Urine Benzodiazepine Screen None Detected (None Detect); Urine Cannabinoids Screen None Detected (None Detect); Urine Opiates Screen None Detected (None Detect)
[2020-07-01 03:50] LABS: ABS Eosinophils 0.3 10^3/ul (0-0.6); ABS Lymphocytes 3.5 10^3/ul (1.0-4.8); ABS Monocytes 0.7 10^3/ul (0-0.8); ABS Neutrophils 8.4 10^3/ul (1.5-7.7); Eosinophil % 2.4 %; Hematocrit 38 % (35-47); Hemoglobin 13.8 g/dL (12.0-16.0); Mean Corpuscular HGB Conc 36 g/dL (31-36); Mean Corpuscular Hemoglobin 32 pg (27-31); Mean Corpuscular Volume 88 fL (80-97); Mean Platelet Volume 7.5 fL (7.4-10.4); Platelet Count 464 10^3/uL (150-450); Red Blood Count 4.34 10^6 /uL (3.70-4.87); Red Cell Distribution Width 14 % (10-15); White Blood Count 12.8 10^3/uL (3.5-10.8)
[2020-07-01 03:54] LABS: ALT 18 U/L (7-52); AST 26 U/L (13-39); Albumin/Globulin Ratio 1.1 (1-3); Alkaline Phosphatase 114 U/L (34-104); Anion Gap 10 mmol/L (2-11); BUN/Creatinine Ratio 21.4 (8-20); Blood Urea Nitrogen 22 mg/dL (6-24); CO2 Carbon Dioxide 26 mmol/L (22-32); Calcium 9.4 mg/dL (8.6-10.3); Chloride 96 mmol/L (101-111); EGFR African American 68.9 (>60); Globulin 3.5 g/dL (2-4); Glucose 239 mg/dL (70-100); Potassium 3.7 mmol/L (3.5-5.0); Sodium 132 mmol/L (135-145); Total Protein 7.5 g/dL (6.4-8.9)
[2020-07-01 04:10] LABS: Acetaminophen < 15 mcg/mL; Alcohol, S < 10 mg/dL (<10); Salicylate < 2.50 mg/dL (<30)
[2020-07-01 04:26] LABS: TSH Ultra Thyroid Stim Horm 4.74 mcIU/mL (0.34-5.60)
[2020-07-01] MEDS ORDERED: Sulfamethox/Trimethoprim DS TAB 800/160 mg PO ONE (05:00)
[2020-07-01] MEDS ORDERED: Al Hydrox/Mg Hydrox/Simet LIQ 30 ML UDC PO PRN (10:34)
[2020-07-01] MEDS ORDERED: Dextrose 50% Syringe 50 ml 25 GM/50 ML SYRINGE IV PUSH PRN (15:05)
[2020-07-02] MEDS ORDERED: DAPAGLIFLOZIN 10 MG TAB (NF) PO SCH (09:00)
[2020-07-02] MEDS: Vitamin THERAPEUTIC TAB PO SCH (11:00)
[2020-07-02] MEDS ORDERED: Senna TAB 8.6 mg TAB PO ONE (12:17)
[2020-07-02] MEDS: PTO: DAPAGLIFLOZIN 10 MG TAB (NF) PO SCH (13:36)
[2020-07-03 08:23] LABS: HDL Cholesterol 34.4 mg/dL
[2020-07-03] MEDS: Vitamin THERAPEUTIC TAB PO SCH (09:24)
[2020-07-03] MEDS: PTO: DAPAGLIFLOZIN 10 MG TAB (NF) PO SCH (09:28)
[2020-07-04] MEDS: PTO: DAPAGLIFLOZIN 10 MG TAB (NF) PO SCH (09:27)
[2020-07-04] MEDS: Vitamin THERAPEUTIC TAB PO SCH (09:28)
[2020-07-04] MEDS ORDERED: diPHENhydraMINE IV 50 MG/ML 1 ml VIAL (BENADRYL) ONE (22:49)
[2020-07-04] MEDS ORDERED: Haloperidol 5 mg/ml SDV IV/IM 5 MG/ML AMP ONE (22:50)
[2020-07-04] MEDS ORDERED: LORazepam 2 mg VIAL 1 ml ONE (23:19)
[2020-07-04] MEDS ORDERED: LORazepam 2 mg VIAL 1 ml IM ONE (23:45)
[2020-07-04] MEDS ORDERED: diPHENhydraMINE IV 50 MG/ML 1 ml VIAL (BENADRYL) IM ONE (23:45)
[2020-07-04] MEDS ORDERED: Haloperidol 5 mg/ml SDV IV/IM 5 MG/ML AMP IM ONE (23:45)
[2020-07-05] MEDS ORDERED: CHOLECALCIFEROL 50000 UNIT PO SCH (09:00)
[2020-07-05] MEDS: PTO: DAPAGLIFLOZIN 10 MG TAB (NF) PO SCH (10:02)
[2020-07-05] MEDS: Vitamin THERAPEUTIC TAB PO SCH (10:02)
[2020-07-06 09:21] VITALS: BP 104/73
[2020-07-06] MEDS: Vitamin THERAPEUTIC TAB PO SCH (09:26)
[2020-07-06] MEDS: PTO: DAPAGLIFLOZIN 10 MG TAB (NF) PO SCH (09:29)
[2020-07-06 17:17] LABS: EGFR African American 68.9 (>60)
== END 2020-07-06 17:47 | disposition home or self-care (01) | DRG 885 ==
LOC: ED 01:00 → BSU 08:41
PROVIDERS: ADMIT Internal Medicine; ATTEND Internal Medicine

== ENCOUNTER 2020-07-23 03:07 | Inpatient (IN) ==
[2020-07-23] MEDS ORDERED: Al Hydrox/Mg Hydrox/Simet LIQ 30 ML UDC PO PRN (09:59)
[2020-07-23] MEDS ORDERED: Dextrose 50% Syringe 50 ml 25 GM/50 ML SYRINGE IV PUSH PRN ×2 (12:59→14:09)
[2020-07-23] MEDS: Sulfamethox/Trimethoprim DS TAB 800/160 mg PO SCH (20:51)
[2020-07-24] MEDS: Vitamin THERAPEUTIC TAB PO SCH (09:24)
[2020-07-24] MEDS: Sulfamethox/Trimethoprim DS TAB 800/160 mg PO SCH ×2 (09:24→20:33)
[2020-07-24] MEDS: DAPAGLIFLOZIN 10 MG TAB (NF) PO SCH (09:26)
[2020-07-24] MEDS: Docusate LIQ 100 MG/10 ML UDC PO SCH (09:26)
[2020-07-24] MEDS: Senna TAB 8.6 mg TAB PO SCH (09:27)
[2020-07-25] MEDS: Senna TAB 8.6 mg TAB PO SCH (09:20)
[2020-07-25] MEDS: Sulfamethox/Trimethoprim DS TAB 800/160 mg PO SCH ×2 (09:20→20:42)
[2020-07-25] MEDS: Docusate LIQ 100 MG/10 ML UDC PO SCH (09:21)
[2020-07-25] MEDS: Vitamin THERAPEUTIC TAB PO SCH (09:21)
[2020-07-25] MEDS: Insulin GLARGINE 100 un/ml 10 ml VIAL SUBCUT SCH (09:24)
[2020-07-25] MEDS: DAPAGLIFLOZIN 10 MG TAB (NF) PO SCH (09:25)
[2020-07-26 08:31] LABS: HDL Cholesterol 39.3 mg/dL
[2020-07-26] MEDS: Senna TAB 8.6 mg TAB PO SCH (09:28)
[2020-07-26] MEDS: Sulfamethox/Trimethoprim DS TAB 800/160 mg PO SCH ×2 (09:28→21:47)
[2020-07-26] MEDS: Vitamin THERAPEUTIC TAB PO SCH (09:29)
[2020-07-26] MEDS: Docusate LIQ 100 MG/10 ML UDC PO SCH (09:32)
[2020-07-26] MEDS: DAPAGLIFLOZIN 10 MG TAB (NF) PO SCH (09:34)
[2020-07-26] MEDS: Insulin GLARGINE 100 un/ml 10 ml VIAL SUBCUT SCH (09:45)
[2020-07-27] MEDS: Docusate LIQ 100 MG/10 ML UDC PO SCH (08:47)
[2020-07-27] MEDS: Senna TAB 8.6 mg TAB PO SCH (08:48)
[2020-07-27] MEDS: DAPAGLIFLOZIN 10 MG TAB (NF) PO SCH (08:50)
[2020-07-27] MEDS: Vitamin THERAPEUTIC TAB PO SCH (08:51)
[2020-07-27] MEDS: Sulfamethox/Trimethoprim DS TAB 800/160 mg PO SCH ×2 (08:51→19:47)
[2020-07-27] MEDS: Insulin GLARGINE 100 un/ml 10 ml VIAL SUBCUT SCH (09:10)
[2020-07-27] MEDS: carBAMazepine 100mg CHEWTAB PO SCH (19:48)
[2020-07-28] MEDS: carBAMazepine 100mg CHEWTAB PO SCH ×2 (09:01→21:01)
[2020-07-28] MEDS: Docusate LIQ 100 MG/10 ML UDC PO SCH (09:03)
[2020-07-28] MEDS: Insulin GLARGINE 100 un/ml 10 ml VIAL SUBCUT SCH (09:03)
[2020-07-28] MEDS: Senna TAB 8.6 mg TAB PO SCH (09:04)
[2020-07-28] MEDS: Vitamin THERAPEUTIC TAB PO SCH (09:04)
[2020-07-28] MEDS: Sulfamethox/Trimethoprim DS TAB 800/160 mg PO SCH ×2 (09:04→21:00)
[2020-07-28] MEDS: DAPAGLIFLOZIN 10 MG TAB (NF) PO SCH (09:05)
[2020-07-29] MEDS: Insulin GLARGINE 100 un/ml 10 ml VIAL SUBCUT SCH (09:27)
[2020-07-29] MEDS: Senna TAB 8.6 mg TAB PO SCH (09:34)
[2020-07-29] MEDS: Vitamin THERAPEUTIC TAB PO SCH (09:34)
[2020-07-29] MEDS: Sulfamethox/Trimethoprim DS TAB 800/160 mg PO SCH ×2 (09:35→20:24)
[2020-07-29] MEDS: carBAMazepine 100mg CHEWTAB PO SCH ×2 (09:36→20:26)
[2020-07-29] MEDS: DAPAGLIFLOZIN 10 MG TAB (NF) PO SCH (09:37)
[2020-07-29] MEDS: Docusate LIQ 100 MG/10 ML UDC PO SCH (09:38)
[2020-07-30] MEDS ORDERED: NF: DAPAGLIFLOZIN 10 MG TAB (NF) PO SCH (09:00)
[2020-07-30] MEDS: carBAMazepine 100mg CHEWTAB PO SCH (09:15)
[2020-07-30] MEDS: Senna TAB 8.6 mg TAB PO SCH (09:15)
[2020-07-30] MEDS: Sulfamethox/Trimethoprim DS TAB 800/160 mg PO SCH (09:17)
[2020-07-30] MEDS: Docusate LIQ 100 MG/10 ML UDC PO SCH (09:18)
[2020-07-30] MEDS: Vitamin THERAPEUTIC TAB PO SCH (09:18)
[2020-07-30] MEDS: Insulin GLARGINE 100 un/ml 10 ml VIAL SUBCUT SCH (09:19)
[2020-07-30 10:25] VITALS: BP 114/74
== END 2020-07-30 12:00 | disposition home or self-care (01) | DRG 885 ==
LOC: ED 03:07 → BSU 10:02
PROVIDERS: ADMIT Psychiatry & Neurology Psychiatry; ATTEND Psychiatry & Neurology Psychiatry

== ENCOUNTER 2021-01-10 07:25 | Inpatient (IN) ==
[2021-01-10 08:32] LABS: Hematocrit 31 % (35-47); Hemoglobin 11.3 g/dL (12.0-16.0); Mean Corpuscular HGB Conc 36 g/dL (31-36); Mean Corpuscular Hemoglobin 32 pg (27-31); Mean Corpuscular Volume 89 fL (80-97); Red Blood Count 3.53 10^6 /uL (3.70-4.87); Red Cell Distribution Width 15 % (10-15); White Blood Count 3.6 10^3/uL (3.5-10.8)
[2021-01-10 08:34] LABS: Urine Appearance Clear; Urine Bilirubin Negative (Negative); Urine Blood 1+ (Negative); Urine Color Yellow; Urine Glucose 3+(>=500 mg/dL) (Negative); Urine Ketones Negative (Negative); Urine Nitrite Negative (Negative); Urine Protein 1+(30 mg/dL) (Negative); Urine Specific Gravity 1.023 (1.010-1.030); Urine Urobilinogen Negative (Negative)
[2021-01-10 08:52] LABS: ALT 14 U/L (7-52); AST 15 U/L (13-39); Albumin/Globulin Ratio 1.1 (1-3); Alkaline Phosphatase 155 U/L (34-104); Anion Gap 12 mmol/L (2-11); BUN/Creatinine Ratio 26.5 (8-20); Blood Urea Nitrogen 22 mg/dL (6-24); CO2 Carbon Dioxide 25 mmol/L (22-32); Calcium 9.3 mg/dL (8.6-10.3); Chloride 99 mmol/L (101-111); EGFR Non-African American 72.8 (>60); Globulin 3.5 g/dL (2-4); Glucose 257 mg/dL (70-100); Potassium 3.4 mmol/L (3.5-5.0); Sodium 136 mmol/L (135-145); Total Protein 7.5 g/dL (6.4-8.9)
[2021-01-10 09:07] LABS: Acetaminophen < 15 mcg/mL; Alcohol, S < 10 mg/dL (<10); Salicylate < 2.50 mg/dL (<30)
[2021-01-10 09:08] LABS: Urine Benzodiazepine Screen None Detected (None Detect); Urine Cannabinoids Screen None Detected (None Detect); Urine Opiates Screen None Detected (None Detect)
[2021-01-10 09:21] LABS: ABS Monocytes 0.3 10^3/ul (0-0.8); ABS Neutrophils 1.3 10^3/ul (1.5-7.7); Eosinophil % 0.8 %; Lymphocyte % 55.6 %; Mean Platelet Volume 8.2 fL (7.4-10.4); Nucleated Red Blood Cells % 0.2; Platelet Count 86 10^3/uL (150-450); TSH Ultra Thyroid Stim Horm 5.39 mcIU/mL (0.34-5.60)
[2021-01-10 09:46] LABS: Urine Bacteria Absent (Absent); Urine Red Blood Cell 1+(3-5/hpf) (Absent); Urine Squamous Epithelial Cell Present (Absent); Urine White Blood Cell Absent (Absent)
[2021-01-10] MEDS ORDERED: Potassium Chlor 20 meq TAB.ER PO ONE (10:00)
[2021-01-10] MEDS ORDERED: Ondansetron ODT 4 mg TAB 4 MG TAB PO PRN (14:37)
[2021-01-10 15:15] LABS: C Reactive Protein 78.18 mg/L (<8.01)
[2021-01-10] MEDS ORDERED: Dextrose 50% Syringe 50 ml 25 GM/50 ML SYRINGE IV PUSH PRN (15:18)
[2021-01-10] MEDS ORDERED: Al Hydrox/Mg Hydrox/Simet LIQ 30 ML UDC PO PRN (16:56)
[2021-01-10] MEDS ORDERED: Insulin GLARGINE 100 un/ml 10 ml VIAL SUBCUT SCH (21:00)
[2021-01-11] MEDS: Multivitamins/Minerals TAB PO SCH (08:23)
[2021-01-11] MEDS ORDERED: Triamcinolone 0.025% OINT 15 GM TUBE TOPICAL SCH (09:00)
[2021-01-11] MEDS ORDERED: NF:DAPAGLIFLOZIN 10 MG TAB (NF) PO SCH (09:00)
[2021-01-11] MEDS ORDERED: Insulin GLARGINE 100 un/ml 10 ml VIAL SUBCUT SCH (21:00)
[2021-01-12 08:52] LABS: HDL Cholesterol 44.7 mg/dL
[2021-01-12] MEDS: Multivitamins/Minerals TAB PO SCH (09:15)
[2021-01-12] MEDS: Insulin GLARGINE 100 un/ml 10 ml VIAL SUBCUT SCH (21:14)
[2021-01-13] MEDS: Multivitamins/Minerals TAB PO SCH (09:30)
[2021-01-13] MEDS: Insulin GLARGINE 100 un/ml 10 ml VIAL SUBCUT SCH (20:48)
[2021-01-14] MEDS: Multivitamins/Minerals TAB PO SCH (08:37)
[2021-01-14] MEDS: PTO:DAPAGLIFLOZIN 10 MG TAB (NF) PO SCH (14:08)
[2021-01-14] MEDS: Insulin GLARGINE 100 un/ml 10 ml VIAL SUBCUT SCH (20:48)
[2021-01-15] MEDS: Multivitamins/Minerals TAB PO SCH (07:36)
[2021-01-15 07:37] LABS: ABS Lymphocytes 1.7 10^3/ul (1.0-4.8); ABS Monocytes 0.4 10^3/ul (0-0.8); ABS Neutrophils 1.7 10^3/ul (1.5-7.7); Eosinophil % 0.8 %; Hematocrit 27 % (35-47); Hemoglobin 9.8 g/dL (12.0-16.0); Lymphocyte % 44.2 %; Mean Corpuscular HGB Conc 36 g/dL (31-36); Mean Corpuscular Hemoglobin 32 pg (27-31); Mean Corpuscular Volume 90 fL (80-97); Mean Platelet Volume 7.8 fL (7.4-10.4); Platelet Count 266 10^3/uL (150-450); Red Blood Count 3.01 10^6 /uL (3.70-4.87); Red Cell Distribution Width 15 % (10-15); White Blood Count 3.9 10^3/uL (3.5-10.8)
[2021-01-15] MEDS: PTO:DAPAGLIFLOZIN 10 MG TAB (NF) PO SCH (07:38)
[2021-01-15 08:55] VITALS: BP 131/86
== END 2021-01-15 12:30 | disposition home or self-care (01) | DRG 885 ==
LOC: ED 07:25 → BSU 14:33
PROVIDERS: ADMIT Psychiatry & Neurology Addiction Psychiatry; ATTEND Psychiatry & Neurology Addiction Psychiatry

== ENCOUNTER 2021-01-18 00:40 | Inpatient (IN) ==
[2021-01-18 01:14] LABS: Urine Appearance Clear; Urine Bilirubin Negative (Negative); Urine Blood Negative (Negative); Urine Color Yellow; Urine Glucose 3+(>=500 mg/dL) (Negative); Urine Ketones Negative (Negative); Urine Nitrite Negative (Negative); Urine Protein 2+(100 mg/dL) (Negative); Urine Specific Gravity 1.025 (1.010-1.030); Urine Urobilinogen Negative (Negative)
[2021-01-18 01:31] LABS: ABS Eosinophils 0.1 10^3/ul (0-0.6); ABS Lymphocytes 2.3 10^3/ul (1.0-4.8); ABS Monocytes 0.4 10^3/ul (0-0.8); ABS Neutrophils 1.7 10^3/ul (1.5-7.7); Eosinophil % 1.8 %; Hematocrit 26 % (35-47); Hemoglobin 9.4 g/dL (12.0-16.0); Lymphocyte % 50.9 %; Mean Corpuscular HGB Conc 36 g/dL (31-36); Mean Corpuscular Hemoglobin 33 pg (27-31); Mean Corpuscular Volume 91 fL (80-97); Mean Platelet Volume 7.6 fL (7.4-10.4); Nucleated Red Blood Cells % 0.5; Platelet Count 376 10^3/uL (150-450); Red Blood Count 2.83 10^6 /uL (3.70-4.87); Red Cell Distribution Width 16 % (10-15); White Blood Count 4.5 10^3/uL (3.5-10.8)
[2021-01-18 01:34] LABS: Urine White Blood Cell Trace(0-5/hpf) (Absent)
[2021-01-18 01:35] LABS: Urine Bacteria Absent (Absent); Urine Red Blood Cell Absent (Absent); Urine Squamous Epithelial Cell Present (Absent)
[2021-01-18 01:40] LABS: Urine Benzodiazepine Screen None Detected (None Detect); Urine Cannabinoids Screen None Detected (None Detect); Urine Opiates Screen None Detected (None Detect)
[2021-01-18 01:46] LABS: Acetaminophen < 15 mcg/mL; Alcohol, S < 10 mg/dL (<10); Salicylate < 2.50 mg/dL (<30)
[2021-01-18 01:52] LABS: ALT 13 U/L (7-52); AST 15 U/L (13-39); Albumin 3.8 g/dL (3.2-5.2); Albumin/Globulin Ratio 1.4 (1-3); Alkaline Phosphatase 147 U/L (34-104); Anion Gap 9 mmol/L (2-11); Blood Urea Nitrogen 21 mg/dL (6-24); CO2 Carbon Dioxide 28 mmol/L (22-32); Chloride 101 mmol/L (101-111); EGFR African American 86.8 (>60); EGFR Non-African American 71.8 (>60); Globulin 2.8 g/dL (2-4); Glucose 214 mg/dL (70-100); Potassium 3.4 mmol/L (3.5-5.0); Sodium 138 mmol/L (135-145); Total Protein 6.6 g/dL (6.4-8.9)
[2021-01-18 02:01] LABS: TSH Ultra Thyroid Stim Horm 6.11 mcIU/mL (0.34-5.60)
[2021-01-18] MEDS ORDERED: Al Hydrox/Mg Hydrox/Simet LIQ 30 ML UDC PO PRN (11:24)
[2021-01-18] MEDS ORDERED: Ondansetron ODT 4 mg TAB 4 MG TAB PO PRN (11:26)
[2021-01-18] MEDS: Insulin GLARGINE 100 un/ml 10 ml VIAL SUBCUT SCH (20:23)
[2021-01-19] MEDS: Multivitamins/Minerals TAB PO SCH (08:57)
[2021-01-19] MEDS ORDERED: DAPAGLIFLOZIN 10 MG TAB (NF) PO SCH ×2 (09:00)
[2021-01-19] MEDS: Insulin GLARGINE 100 un/ml 10 ml VIAL SUBCUT SCH (20:12)
[2021-01-20 08:36] LABS: HDL Cholesterol 34.4 mg/dL
[2021-01-20] MEDS: PTO:DAPAGLIFLOZIN 10 MG TAB (NF) PO SCH (09:32)
[2021-01-20] MEDS: Multivitamins/Minerals TAB PO SCH (09:33)
[2021-01-20] MEDS ORDERED: Dextrose 50% Syringe 50 ml 25 GM/50 ML SYRINGE IV PUSH PRN (16:43)
[2021-01-20] MEDS: Insulin GLARGINE 100 un/ml 10 ml VIAL SUBCUT SCH (21:16)
[2021-01-21] MEDS: PTO:DAPAGLIFLOZIN 10 MG TAB (NF) PO SCH (08:03)
[2021-01-21] MEDS: Multivitamins/Minerals TAB PO SCH (08:06)
[2021-01-21] MEDS: Insulin GLARGINE 100 un/ml 10 ml VIAL SUBCUT SCH (20:20)
[2021-01-22] MEDS: Multivitamins/Minerals TAB PO SCH (08:58)
[2021-01-22] MEDS: PTO:DAPAGLIFLOZIN 10 MG TAB (NF) PO SCH (08:59)
[2021-01-22 11:15] VITALS: BP 105/74
== END 2021-01-22 16:48 | disposition home or self-care (01) | DRG 885 ==
LOC: ED 00:40 → BSU 15:11
PROVIDERS: ADMIT Psychiatry & Neurology Psychiatry; ATTEND Psychiatry & Neurology Psychiatry

== ENCOUNTER 2021-12-11 15:05 | Inpatient (IN) ==
[2021-12-11 15:44] LABS: ABS Eosinophils 0.1 10^3/ul (0-0.6); ABS Lymphocytes 0.6 10^3/ul (1.0-4.8); ABS Monocytes 0.4 10^3/ul (0-0.8); ABS Neutrophils 6.5 10^3/ul (1.5-7.7); Eosinophil % 1.2 %; Hematocrit 39 % (35-47); Hemoglobin 13.7 g/dL (12.0-16.0); Lymphocyte % 7.7 %; Mean Corpuscular HGB Conc 35 g/dL (31-36); Mean Corpuscular Hemoglobin 35 pg (27-31); Mean Corpuscular Volume 99 fL (80-97); Mean Platelet Volume 8.2 fL (7.4-10.4); Platelet Count 287 10^3/uL (150-450); Red Blood Count 3.93 10^6 /uL (3.70-4.87); Red Cell Distribution Width 15 % (10-15); White Blood Count 7.6 10^3/uL (3.5-10.8)
[2021-12-11 15:53] LABS: Urine Appearance Cloudy; Urine Bilirubin Negative (Negative); Urine Blood Negative (Negative); Urine Color Yellow; Urine Glucose 3+(>=500 mg/dL) (Negative); Urine Ketones Negative (Negative); Urine Nitrite Negative (Negative); Urine Protein 1+(30 mg/dL) (Negative); Urine Specific Gravity 1.029 (1.002-1.030); Urine Urobilinogen Negative (Negative)
[2021-12-11 15:53] LABS: Venous Bicarbonate HCO3 26.8 mmol/L (24-28)
[2021-12-11 16:03] LABS: ALT 21 U/L (7-52); AST 21 U/L (13-39); Albumin/Globulin Ratio 1.1 (1-3); Alkaline Phosphatase 112 U/L (35-149); Anion Gap 9 mmol/L (2-11); Blood Urea Nitrogen 18 mg/dL (6-24); C Reactive Protein 30.66 mg/L (<8.01); CO2 Carbon Dioxide 28 mmol/L (22-32); Calcium 9.6 mg/dL (8.6-10.3); Chloride 90 mmol/L (101-111); Globulin 3.7 g/dL (2-4); Potassium 4.3 mmol/L (3.5-5.0); Sodium 127 mmol/L (135-145); Total Protein 7.7 g/dL (6.4-8.9); eGFR CKD-EPI 57.7 (>60)
[2021-12-11 16:11] LABS: Urine Bacteria Absent (Absent); Urine Red Blood Cell Trace(0-2/hpf) (Absent); Urine Squamous Epithelial Cell Present (Absent); Urine White Blood Cell 1+(6-10/hpf) (Absent)
[2021-12-11 16:14] LABS: Glucose 569 mg/dL (70-100); Glucose Confirmatory 569 mg/dL (70-100)
[2021-12-11 20:06] LABS: Acetaminophen < 15 mcg/mL; Alcohol, S < 13 mg/dL (<13); Salicylate < 2.50 mg/dL (<30)
[2021-12-11 20:50] LABS: Urine Benzodiazepine Screen None Detected (None Detect); Urine Cannabinoids Screen None Detected (None Detect); Urine Opiates Screen None Detected (None Detect)
[2021-12-11 21:17] LABS: TSH Ultra Thyroid Stim Horm 4.42 mcIU/mL (0.34-5.60)
[2021-12-11] MEDS ORDERED: Dextrose 50% Syringe 50 ml 25 GM/50 ML SYRINGE IV PUSH PRN (23:03)
[2021-12-12 07:37] LABS: HDL Cholesterol 39.1 mg/dL
[2021-12-12] MEDS: Al Hydrox/Mg Hydrox/Simet LIQ 30 ML UDC PO PRN (14:44)
[2021-12-12] MEDS: PTO:DAPAGLIFLOZIN 10 MG TAB (NF) PO SCH (15:29)
[2021-12-12] MEDS ORDERED: Insulin GLARGINE 100 un/ml 10 ml VIAL SUBCUT SCH ×2 (21:00)
[2021-12-13 08:23] LABS: Albumin 3.5 g/dL (3.2-5.2); Calcium 9.3 mg/dL (8.6-10.3); Globulin 3.4 g/dL (2-4); Potassium 3.9 mmol/L (3.5-5.0); Total Bilirubin 0.7 mg/dL (0.2-1.0); Total Protein 6.9 g/dL (6.4-8.9); eGFR CKD-EPI 66.6 (>60)
[2021-12-13] MEDS: PTO:DAPAGLIFLOZIN 10 MG TAB (NF) PO SCH (09:07)
[2021-12-13] MEDS: Insulin GLARGINE 100 un/ml 10 ml VIAL SUBCUT SCH (20:05)
[2021-12-14] MEDS: PTO:DAPAGLIFLOZIN 10 MG TAB (NF) PO SCH ×2 (07:56→09:49)
[2021-12-14] MEDS: Insulin GLARGINE 100 un/ml 10 ml VIAL SUBCUT SCH (20:20)
[2021-12-14] MEDS ORDERED: Insulin GLARGINE 100 un/ml 10 ml VIAL SUBCUT ONE (20:59)
[2021-12-15] MEDS: PTO:DAPAGLIFLOZIN 10 MG TAB (NF) PO SCH (08:55)
[2021-12-15] MEDS: Al Hydrox/Mg Hydrox/Simet LIQ 30 ML UDC PO PRN (12:17)
[2021-12-15] MEDS ORDERED: Insulin GLARGINE 100 un/ml 10 ml VIAL SUBCUT SCH (21:00)
[2021-12-16] MEDS: PTO:DAPAGLIFLOZIN 10 MG TAB (NF) PO SCH (08:30)
[2021-12-16 08:45] VITALS: BP 106/66
== END 2021-12-16 13:10 | disposition home or self-care (01) | DRG 885 ==
LOC: ED 15:05 → EDHOLD 23:32 → BSU 12-12 00:40
PROVIDERS: ADMIT Student in an Organized Health Care Education/Training Program; ATTEND Student in an Organized Health Care Education/Training Program

== ENCOUNTER 2022-10-04 04:23 | Inpatient (IN) ==
[2022-10-04 05:23] LABS: ABS Lymphocytes 0.3 10^3/ul (1.0-4.8); ABS Monocytes 0.2 10^3/ul (0-0.8); ABS Neutrophils 4.3 10^3/ul (1.5-7.7); Hematocrit 21 % (35-47); Hemoglobin 7.2 g/dL (12.0-16.0); Lymphocyte % 6.3 %; Mean Corpuscular HGB Conc 34 g/dL (31-36); Mean Corpuscular Hemoglobin 34 pg (27-31); Mean Corpuscular Volume 99 fL (80-97); Mean Platelet Volume 7.4 fL (7.4-10.4); Nucleated Red Blood Cells % 0.1; Platelet Count 265 10^3/uL (150-450); Red Blood Count 2.13 10^6 /uL (3.70-4.87); Red Cell Distribution Width 23 % (10-15); White Blood Count 4.9 10^3/uL (3.5-10.8)
[2022-10-04 05:29] LABS: INR 1.01 (0.89-1.11)
[2022-10-04 06:16] LABS: Calcium 8.6 mg/dL (8.6-10.3); Magnesium 1.7 mg/dL (1.9-2.7); eGFR CKD-EPI 57.3 (>60)
[2022-10-04 06:28] LABS: Potassium 5.1 mmol/L (3.5-5.0)
[2022-10-04 07:47] LABS: Venous Bicarbonate HCO3 22.9 mmol/L (24-28)
[2022-10-04] MEDS ORDERED: Dextrose 50% Syringe 50 ml 25 GM/50 ML SYRINGE IV PUSH PRN ×2 (08:50→14:24)
[2022-10-04] MEDS ORDERED: Insulin Infusion 100unit/100mL 100 UNIT/100 ML BAG IV ONE (08:50)
[2022-10-04] MEDS ORDERED: Potassium Chloride IV 40 MEQ in Lactated Ringers 1000 ml BAG 1,000 ML IVPB SCH (09:00)
[2022-10-04 11:58] LABS: Osmolality Serum 316 mOsm/kg (275-295)
[2022-10-04 12:29] LABS: Calcium 8.8 mg/dL (8.6-10.3); Potassium 4.6 mmol/L (3.5-5.0); eGFR CKD-EPI 57.3 (>60)
[2022-10-04] MEDS ORDERED: Lactated Ringers 1000 ml BAG 1,000 ML IV ONE (12:36)
[2022-10-04] MEDS ORDERED: Iodixanol (CONTRAST) 320 MG/ML 100 ML SDV IV ONE (12:47)
[2022-10-04] MEDS ORDERED: Norepinephrine 16MCG/ML BAG NS 4,000 MCG/250 ML BAG IV SCH (13:00)
[2022-10-04 13:01] LABS: Hematocrit 23 % (35-47); Hemoglobin 8.1 g/dL (12.0-16.0)
[2022-10-04 13:03] LABS: Urine Appearance Cloudy; Urine Bilirubin Negative (Negative); Urine Blood 3+ (Large) (Negative); Urine Color Pink; Urine Glucose 3+ (>=1000 mg/dL) (Negative); Urine Ketones Negative (Negative); Urine Protein 1+ (30 mg/dL) (Negative); Urine Specific Gravity 1.015 (1.005-1.030)
[2022-10-04 13:04] LABS: Urine Nitrite Negative (Negative); Urine Urobilinogen 0.2 (Negative) (Negative)
[2022-10-04 13:14] LABS: Urine Bacteria Absent (Absent); Urine Red Blood Cell 3+(>10/hpf) (Absent); Urine White Blood Cell Trace(0-5/hpf) (Absent)
[2022-10-04 13:35] LABS: Urine Osmo 551 mOsm/kg (150-1150)
[2022-10-04] MEDS ORDERED: Insulin Infusion 100unit/100mL 100 UNIT/100 ML BAG IV SCH ×2 (14:30→15:00)
[2022-10-04] MEDS ORDERED: D5W 1000 ml BAG 1,000 ML IV SCH (15:00)
[2022-10-04 16:02] LABS: Calcium 8.8 mg/dL (8.6-10.3); eGFR CKD-EPI 65.4 (>60)
[2022-10-04] MEDS: Insulin GLARGINE 100 un/ml 10 ml VIAL SUBCUT SCH (17:53)
[2022-10-04 18:34] LABS: Hematocrit 25 % (35-47); Hemoglobin 8.5 g/dL (12.0-16.0)
[2022-10-04 19:28] LABS: Calcium 8.3 mg/dL (8.6-10.3); eGFR CKD-EPI 62.5 (>60)
[2022-10-04] MEDS: Lactated Ringers 1000 ml BAG 1,000 ML IV ONE (21:49)
[2022-10-05 00:11] LABS: Calcium 8.1 mg/dL (8.6-10.3); Potassium 4.4 mmol/L (3.5-5.0); eGFR CKD-EPI 63.2 (>60)
[2022-10-05 05:39] LABS: Hematocrit 24 % (35-47); Hemoglobin 8.1 g/dL (12.0-16.0); Mean Corpuscular HGB Conc 34 g/dL (31-36); Mean Corpuscular Hemoglobin 31 pg (27-31); Mean Corpuscular Volume 92 fL (80-97); Mean Platelet Volume 7.3 fL (7.4-10.4); Platelet Count 204 10^3/uL (150-450); Red Blood Count 2.59 10^6 /uL (3.70-4.87); Red Cell Distribution Width 21 % (10-15); White Blood Count 4.1 10^3/uL (3.5-10.8)
[2022-10-05] MEDS: Lactated Ringers 1000 ml BAG 1,000 ML IV ONE (06:09)
[2022-10-05 06:38] LABS: Calcium 8.2 mg/dL (8.6-10.3); Potassium 4.3 mmol/L (3.5-5.0); eGFR CKD-EPI 74.9 (>60)
[2022-10-05] MEDS ORDERED: Magnesium Sulfate 2 gm BAG 2 GM/50 ML BAG IVPB ONE (07:52)
[2022-10-05] MEDS: Insulin GLARGINE 100 un/ml 10 ml VIAL SUBCUT SCH (09:00)
[2022-10-05] MEDS ORDERED: Influenza vaccine *QUAD* *2022-23* 0.5 ML SYRINGE IM ONE (09:00)
[2022-10-05 15:44] LABS: Hematocrit 24 % (35-47); Hemoglobin 8.4 g/dL (12.0-16.0); Mean Corpuscular HGB Conc 36 g/dL (31-36); Mean Corpuscular Hemoglobin 33 pg (27-31); Mean Corpuscular Volume 92 fL (80-97); Mean Platelet Volume 7.1 fL (7.4-10.4); Platelet Count 210 10^3/uL (150-450); Red Blood Count 2.56 10^6 /uL (3.70-4.87); Red Cell Distribution Width 22 % (10-15); White Blood Count 5.3 10^3/uL (3.5-10.8)
[2022-10-06] MEDS: Insulin GLARGINE 100 un/ml 10 ml VIAL SUBCUT SCH (08:28)
[2022-10-06] MEDS ORDERED: Insulin GLARGINE 100 un/ml 10 ml VIAL SUBCUT SCH (11:30)
[2022-10-06 12:06] VITALS: BP 118/76
== END 2022-10-06 13:15 | disposition home or self-care (01) | DRG 754 ==
LOC: ED 04:23 → EDHOLD 09:30 → SUATTDRO 09:30 → ICU 13:41 → MED 10-05 16:14
PROVIDERS: ADMIT Internal Medicine; ATTEND Internal Medicine

== ENCOUNTER 2022-12-27 12:02 | Inpatient (IN) ==
[2022-12-27] MEDS ORDERED: NS 0.9% 1000 ml BAG 1,000 ML IV ONE ×2 (12:20→15:12)
[2022-12-27 12:47] LABS: ABS Basophils 0.1 10^3/ul (0-0.2); ABS Eosinophils 0.1 10^3/ul (0-0.6); ABS Lymphocytes 0.6 10^3/ul (1.0-4.8); ABS Monocytes 0.5 10^3/ul (0-0.8); ABS Neutrophils 4.9 10^3/ul (1.5-7.7); Eosinophil % 1.1 %; Hematocrit 31 % (35-47); Hemoglobin 11.1 g/dL (12.0-16.0); Lymphocyte % 10.1 %; Mean Corpuscular HGB Conc 35 g/dL (31-36); Mean Corpuscular Hemoglobin 33 pg (27-31); Mean Corpuscular Volume 92 fL (80-97); Nucleated Red Blood Cells % 0.1; Platelet Count 299 10^3/uL (150-450); Red Blood Count 3.39 10^6 /uL (3.70-4.87); Red Cell Distribution Width 19 % (10-15); White Blood Count 6.2 10^3/uL (3.5-10.8)
[2022-12-27 13:02] LABS: Activated Partial Thrombo Time 28.3 seconds (26.0-38.0); INR 1.18 (0.88-1.18)
[2022-12-27 13:34] LABS: Albumin 3.3 g/dL (3.2-5.2); C Reactive Protein 58.18 mg/L (<8.01); Calcium 8.5 mg/dL (8.6-10.3); Creatinine, Serum 1.46 mg/dL (0.51-0.95); Globulin 3.3 g/dL (2-4); Potassium 3.4 mmol/L (3.5-5.0); Total Protein 6.6 g/dL (6.4-8.9)
[2022-12-27 14:16] LABS: High Sensitivity Troponin 1 Hr 4 pg/mL (<15)
[2022-12-27 15:43] LABS: Urine Appearance Turbid; Urine Bacteria 1+ (Absent); Urine Bilirubin Negative (Negative); Urine Blood 3+ (Negative); Urine Glucose 1+(50 mg/dL) (Negative); Urine Ketones Negative (Negative); Urine Nitrite Negative (Negative); Urine Protein 3+(>=500 mg/dL) (Negative); Urine Red Blood Cell 3+(>10/hpf) (Absent); Urine Specific Gravity 1.018 (1.002-1.030); Urine Squamous Epithelial Cell Present (Absent); Urine Urobilinogen Negative (Negative); Urine White Blood Cell 3+(>20/hpf) (Absent)
[2022-12-27 15:44] LABS: Urine Color Amber
[2022-12-27] MEDS ORDERED: cefTRIAXone 1 gm/50 mL D5W 1 GM/50 ML BAG IV ONE (15:55)
[2022-12-27 16:49] LABS: Magnesium 1.2 mg/dL (1.9-2.7)
[2022-12-27] MEDS ORDERED: Magnesium Sulf 4 GM/100 ML IV 4,000 MG/100 ML BAG IVPB ONE (16:57)
[2022-12-27] MEDS ORDERED: Enoxaparin 40 MG/0.4 ML SYR SUBCUT SCH (17:00)
[2022-12-27] MEDS ORDERED: Ondansetron 4 mg VIAL 2 MG/ML 2 ml VIAL IV PRN (17:01)
[2022-12-27] MEDS ORDERED: Dextrose 50% Syringe 50 ml 25 GM/50 ML SYRINGE IV PUSH PRN (17:38)
[2022-12-27] MEDS ORDERED: Zosyn per Pharmacy NOTE FOLLOW UP SCH (18:00)
[2022-12-27] MEDS ORDERED: Piperacillin/Tazobac ADVAN 3.375 GM in NS 0.9% 100 ml BAG 100 ML IV ONE (19:00)
[2022-12-27] MEDS ORDERED: Lactated Ringers 1000 ml BAG 1,000 ML IV ONE (19:00)
[2022-12-27] MEDS ORDERED: Potassium Chlor 10 meq TAB PO ONE (19:26)
[2022-12-27] MEDS: Enoxaparin 40 MG/0.4 ML SYR SUBCUT SCH (20:18)
[2022-12-27] MEDS ORDERED: Piperacillin/Tazobac 3.375 GM BAG ONE (20:27)
[2022-12-27] MEDS: Insulin GLARGINE 100 un/ml 10 ml VIAL SUBCUT SCH (23:19)
[2022-12-28] MEDS: ZOSYN 3.375 GM Q8H per EXTENDED INFUSION IV SCH ×3 (00:36→18:17)
[2022-12-28 06:23] LABS: ABS Eosinophils 0.1 10^3/ul (0-0.6); ABS Lymphocytes 0.5 10^3/ul (1.0-4.8); ABS Monocytes 0.4 10^3/ul (0-0.8); ABS Neutrophils 2.9 10^3/ul (1.5-7.7); Eosinophil % 1.8 %; Hematocrit 24 % (35-47); Hemoglobin 8.2 g/dL (12.0-16.0); Lymphocyte % 13.4 %; Mean Corpuscular HGB Conc 35 g/dL (31-36); Mean Corpuscular Hemoglobin 32 pg (27-31); Mean Corpuscular Volume 93 fL (80-97); Nucleated Red Blood Cells % 0.1; Platelet Count 199 10^3/uL (150-450); Red Blood Count 2.54 10^6 /uL (3.70-4.87); Red Cell Distribution Width 20 % (10-15); White Blood Count 3.9 10^3/uL (3.5-10.8)
[2022-12-28 06:45] LABS: Calcium 7.4 mg/dL (8.6-10.3); Creatinine, Serum 1.49 mg/dL (0.51-0.95); Potassium 3.1 mmol/L (3.5-5.0)
[2022-12-28 06:56] LABS: TSH Ultra Thyroid Stim Horm 4.43 mcIU/mL (0.34-5.60)
[2022-12-28] MEDS ORDERED: Potassium Chlor 20 meq TAB.ER PO ONE (07:31)
[2022-12-28] MEDS: Lactated Ringers 1000 ml BAG 1,000 ML IV SCH ×2 (09:34→19:47)
[2022-12-28] MEDS ORDERED: LENVATINIB PO SCH (21:00)
[2022-12-28] MEDS: Insulin GLARGINE 100 un/ml 10 ml VIAL SUBCUT SCH (21:20)
[2022-12-28] MEDS: Enoxaparin 40 MG/0.4 ML SYR SUBCUT SCH (21:21)
[2022-12-29] MEDS: ZOSYN 3.375 GM Q8H per EXTENDED INFUSION IV SCH ×3 (00:30→16:45)
[2022-12-29] MEDS ORDERED: Labetalol IV 5 MG/ML 20 ml VIAL IV PUSH ONE ×3 (05:51→23:41)
[2022-12-29 06:30] LABS: ABS Eosinophils 0.1 10^3/ul (0-0.6); ABS Lymphocytes 0.5 10^3/ul (1.0-4.8); ABS Monocytes 0.2 10^3/ul (0-0.8); Eosinophil % 2.5 %; Hematocrit 23 % (35-47); Hemoglobin 8.6 g/dL (12.0-16.0); Mean Corpuscular HGB Conc 37 g/dL (31-36); Mean Corpuscular Hemoglobin 34 pg (27-31); Mean Corpuscular Volume 92 fL (80-97); Mean Platelet Volume 7.8 fL (7.4-10.4); Nucleated Red Blood Cells % 0.1; Platelet Count 208 10^3/uL (150-450); Red Blood Count 2.54 10^6 /uL (3.70-4.87); Red Cell Distribution Width 19 % (10-15); White Blood Count 2.9 10^3/uL (3.5-10.8)
[2022-12-29 06:41] LABS: Calcium 8.2 mg/dL (8.6-10.3); Creatinine, Serum 1.31 mg/dL (0.51-0.95); Magnesium 1.5 mg/dL (1.9-2.7); Potassium 3.8 mmol/L (3.5-5.0)
[2022-12-29] MEDS ORDERED: Magnesium Sulf 4 GM/100 ML IV 4,000 MG/100 ML BAG IVPB ONE (08:30)
[2022-12-29] MEDS: Insulin GLARGINE 100 un/ml 10 ml VIAL SUBCUT SCH (11:58)
[2022-12-29] MEDS ORDERED: Labetalol IV 5 MG/ML 20 ml VIAL IV PUSH PRN ×2 (17:26→21:24)
[2022-12-29] MEDS: Enoxaparin 40 MG/0.4 ML SYR SUBCUT SCH (20:25)
[2022-12-29] MEDS ORDERED: Insulin GLARGINE 100 un/ml 10 ml VIAL SUBCUT SCH (21:00)
[2022-12-30] MEDS: ZOSYN 3.375 GM Q8H per EXTENDED INFUSION IV SCH (00:43)
[2022-12-30] MEDS ORDERED: Labetalol IV 5 MG/ML 20 ml VIAL IV PUSH ONE (02:37)
[2022-12-30 05:46] LABS: ABS Eosinophils 0.1 10^3/ul (0-0.6); ABS Lymphocytes 0.5 10^3/ul (1.0-4.8); ABS Monocytes 0.2 10^3/ul (0-0.8); Eosinophil % 2.1 %; Hematocrit 22 % (35-47); Hemoglobin 8.2 g/dL (12.0-16.0); Lymphocyte % 17.6 %; Mean Corpuscular HGB Conc 37 g/dL (31-36); Mean Corpuscular Hemoglobin 34 pg (27-31); Mean Corpuscular Volume 91 fL (80-97); Mean Platelet Volume 7.1 fL (7.4-10.4); Nucleated Red Blood Cells % 0.3; Platelet Count 204 10^3/uL (150-450); Red Blood Count 2.46 10^6 /uL (3.70-4.87); Red Cell Distribution Width 19 % (10-15); White Blood Count 2.8 10^3/uL (3.5-10.8)
[2022-12-30 06:01] LABS: Calcium 8.3 mg/dL (8.6-10.3); Creatinine, Serum 1.14 mg/dL (0.51-0.95); eGFR CKD-EPI 57.9 (>60)
[2022-12-30] MEDS: Insulin GLARGINE 100 un/ml 10 ml VIAL SUBCUT SCH (08:09)
[2022-12-30 10:05] VITALS: BP 148/73
[2022-12-30] MEDS ORDERED: Insulin GLARGINE 100 un/ml 10 ml VIAL SUBCUT ONE (10:11)
[2022-12-31] MEDS ORDERED: Insulin GLARGINE 100 un/ml 10 ml VIAL SUBCUT SCH (09:00)
== END 2022-12-30 13:24 | disposition home or self-care (01) | DRG 872 ==
LOC: ED 12:02 → EDHOLD 12:02 → SUATTDRO 16:58 → MED 22:35
PROVIDERS: ADMIT Internal Medicine; ATTEND Internal Medicine